=== PATIENT | female | born 1940 | race Caucasian/White ===

== ENCOUNTER 2016-07-10 19:38 | Inpatient (IN) | payer MEDICARE ==
[2016-07-10] MEDS ORDERED: IPRATROPIUM-ALBUTEROL 3 ML NEB INHALATION STA (20:09)
--- NOTE | 2016-07-10 20:13 | ED ---
SOB HPI - General Chief Complaint: Shortness of Breath Stated Complaint: BOB Legs swelling Time Seen by Provider: 07/10/16 20:00 Source: patient, RN notes reviewed Mode of arrival: wheelchair Limitations: no limitations - History of Present Illness Initial Comments: This is a 76-year-old female with history of CHF and COPD who states he started developing shortness of breath last evening has had chills but she relates this to old age. She denies any phlegm production she does complain of edema to her lower extremities and extends up to the knees. She has no overt chest pain or other symptoms at this time. Patient does admit that she still smokes 1 cigarette per day I did recommended 0 is a better number. MD Complaint: shortness of breath, cough - Related Data Home Medications Medication Instructions Recorded Confirmed Aspirin 81 mg PO DAILY 09/11/14 07/10/16 L.acidoph,Paracasei, B.lactis 1 cap PO DAILY 07/10/16 07/10/16 [Probiotic] Multivitamins, Thera [Multivitamin 1 tab PO DAILY 07/10/16 07/10/16 (formulary)] Sodium Chloride [[place]] 1 spray EA NOSTRIL DAILY 07/10/16 07/10/16 Allergies Allergy/AdvReac Type Severity Reaction Status Date / Time codeine Allergy PARALYZED Verified 07/10/16 20:05 Review of Systems ROS Statement: Those systems with pertinent positive or pertinent negative responses have been documented in the HPI. ROS Other: All systems not noted in ROS Statement are negative. Past Medical History Past Medical History: Cancer, Heart Failure, Hypertension, Pneumonia History of Any Multi-Drug Resistant Organisms: None Reported Past Surgical History: Appendectomy Additional Past Surgical History / Comment(s): right kidney removal, thyroidectomy Past Psychological History: No Psychological Hx Reported Smoking Status: Current every day smoker Past Alcohol Use History: None Reported Past Drug Use History: None Reported General Exam - General Exam Comments Initial Comments: This is a well-developed well-nourished awake alert oriented 3 female Limitations: no limitations General appearance: alert, in no apparent distress Head exam: Present: atraumatic, normocephalic, normal inspection Eye exam: Present: normal appearance, PERRL, EOMI. Absent: scleral icterus, conjunctival injection, periorbital swelling ENT exam: Present: normal exam, mucous membranes moist Neck exam: Present: normal inspection. Absent: tenderness, meningismus, lymphadenopathy Respiratory exam: Present: wheezes, rales, decreased breath sounds (Basilar rales). Absent: respiratory distress, rhonchi, stridor Cardiovascular Exam: Present: regular rate, normal rhythm, normal heart sounds. Absent: systolic murmur, diastolic murmur, rubs, gallop, clicks GI/Abdominal exam: Present: soft, normal bowel sounds. Absent: distended, tenderness, guarding, rebound, rigid Extremities exam: Present: normal inspection, full ROM, normal capillary refill , pedal edema. Absent: tenderness, joint swelling, calf tenderness Back exam: Present: normal inspection Neurological exam: Present: alert, oriented X3, CN II-XII intact Psychiatric exam: Present: normal affect, normal mood Skin exam: Present: warm, dry, intact, normal color. Absent: rash Course Vital Signs 07/10/16 07/10/16 07/10/16 19:51 20:25 20:34 Temperature 98.2 F Pulse Rate 91 84 88 Respiratory 18 Rate Blood Pressure 139/89 O2 Sat by Pulse 96 Oximetry - Reevaluation(s) Reevaluation #1: 07/10/16 21:53 Evaluation reveals the patient is feeling somewhat better breathing better after the DuoNeb treatment. Medical Decision Making - Medical Decision Making I did discuss findings with the patient and with Dr. Lee patient will be admitted with evaluation for congestive heart failure COPD there is a elevation of troponin this may be likely to the renal insufficiency demonstrated patient' s labs cardiology will be consulted - Lab Data Result diagrams: 07/10/16 20:42 07/10/16 20:42 Lab Results 07/10/16 07/10/16 07/10/16 Range/Units 20:42 20:42 20:42 WBC 12.5 H (3.8-10.6) k/uL RBC 4.17 (3.80-5.40) m/uL Hgb 10.0 L (11.4-16.0) gm/dL Hct 36.0 (34.0-46.0) % MCV 86.2 (80.0-100.0) fL MCH 24.1 L (25.0-35.0) pg MCHC 27.9 L (31.0-37.0) g/dL RDW 16.3 H (11.5-15.5) % Plt Count 307 (150-450) k/uL Neutrophils % 73 % Lymphocytes % 15 % Monocytes % 8 % Eosinophils % 1 % Basophils % 1 % Neutrophils # 9.2 H (1.3-7.7) k/uL Lymphocytes # 1.8 (1.0-4.8) k/uL Monocytes # 1.0 (0-1.0) k/uL Eosinophils # 0.2 (0-0.7) k/uL Basophils # 0.1 (0-0.2) k/uL Hypochromasia Marked Poikilocytosis Moderate Anisocytosis Slight PT (9.0-12.0) sec INR (<1.1) APTT (22.0-30.0) sec Sodium 143 (137-145) mmol/L Potassium 5.4 H (3.5-5.1) mmol/L Chloride 109 H (98-107) mmol/L Carbon Dioxide 21 L (22-30) mmol/L Anion Gap 13 mmol/L BUN 31 H (7-17) mg/dL Creatinine 1.10 H (0.52-1.04) mg/dL Est GFR (MDRD) Af Amer 59 (>60 ml/min/1.73 sqM) Est GFR (MDRD) Non-Af 48 (>60 ml/min/1.73 sqM) Glucose 88 (74-99) mg/dL Calcium 8.6 (8.4-10.2) mg/dL Magnesium 2.2 (1.6-2.3) mg/dL Total Bilirubin 0.8 (0.2-1.3) mg/dL AST 63 H (14-36) U/L ALT 65 H (9-52) U/L Alkaline Phosphatase 119 (38-126) U/L Total Creatine Kinase 127 (30-135) U/L CK-MB (CK-2) 3.3 H* (0.0-2.4) ng/mL CK-MB (CK-2) Rel Index 2.6 Troponin I 0.075 H* (0.000-0.034) ng/mL Total Protein 6.9 (6.3-8.2) g/dL Albumin 3.5 (3.5-5.0) g/dL 07/10/16 Range/Units 20:42 WBC (3.8-10.6) k/uL RBC (3.80-5.40) m/uL Hgb (11.4-16.0) gm/dL Hct (34.0-46.0) % MCV (80.0-100.0) fL MCH (25.0-35.0) pg MCHC (31.0-37.0) g/dL RDW (11.5-15.5) % Plt Count (150-450) k/uL Neutrophils % % Lymphocytes % % Monocytes % % Eosinophils % % Basophils % % Neutrophils # (1.3-7.7) k/uL Lymphocytes # (1.0-4.8) k/uL Monocytes # (0-1.0) k/uL Eosinophils # (0-0.7) k/uL Basophils # (0-0.2) k/uL Hypochromasia Poikilocytosis Anisocytosis PT 11.9 (9.0-12.0) sec INR 1.2 (<1.1) APTT 21.9 L (22.0-30.0) sec Sodium (137-145) mmol/L Potassium (3.5-5.1) mmol/L Chloride (98-107) mmol/L Carbon Dioxide (22-30) mmol/L Anion Gap mmol/L BUN (7-17) mg/dL Creatinine (0.52-1.04) mg/dL Est GFR (MDRD) Af Amer (>60 ml/min/1.73 sqM) Est GFR (MDRD) Non-Af (>60 ml/min/1.73 sqM) Glucose (74-99) mg/dL Calcium (8.4-10.2) mg/dL Magnesium (1.6-2.3) mg/dL Total Bilirubin (0.2-1.3) mg/dL AST (14-36) U/L ALT (9-52) U/L Alkaline Phosphatase (38-126) U/L Total Creatine Kinase (30-135) U/L CK-MB (CK-2) (0.0-2.4) ng/mL CK-MB (CK-2) Rel Index Troponin I (0.000-0.034) ng/mL Total Protein (6.3-8.2) g/dL Albumin (3.5-5.0) g/dL - EKG Data -: EKG Interpreted by Ca EKG shows normal: sinus rhythm (Sinus rhythm a rate of 87 IL interval 150 to QRS duration 82 QT/QTC of 32/459 with possible atrial enlargement and rightward axis.) - Radiology Data Radiology results: report reviewed (Review the x-ray does reveal evidence of CHF /pulmonary edema.), image reviewed Critical Care Time Critical Care Time: Yes Critical Care Time: 33 minutes. Critical care time which includes initial monitoring of the patient with history physical lab and x-rays. Reevaluation the patient response to therapy. Discussed with the patient regarding the findings discussed with the admitting physician. Admission orders and documentation of the above. Disposition Clinical Impression: Congestive heart failure, Pulmonary edema, Acute exacerbation of chronic obstructive airways disease, Adult respiratory distress syndrome, Renal insufficiency syndrome, Elevated troponin Disposition: ADMITTED IP TO THIS [facility] Condition: Stable
--- NOTE | 2016-07-10 20:29 | XR ---
EXAMINATION TYPE: XR chest 2V DATE OF EXAM: 07/10/2016 8:23 PM COMPARISON: 09/11/2014 HISTORY: Short of breath TECHNIQUE: Frontal and lateral views of the chest are obtained. FINDINGS: There is pulmonary edema. Heart is enlarged. Thoracic aorta is atheromatous. There is blun ting of costophrenic angles. IMPRESSION: There is congestive heart failure with pulmonary edema and pleural fluid that is new com pared to last exam.
[2016-07-10 21:08] LABS: Anisocytosis Slight; Basophils # (A) 0.1 k/uL (0-0.2); Basophils % (A) 1 %; CHCM 27.9; Eosinophils # (A) 0.2 k/uL (0-0.7); Eosinophils % (A) 1 %; HDW 4.11; Hypochromasia Marked; Luc % (Auto) 2; Lymphocytes # (A) 1.8 k/uL (1.0-4.8); Lymphocytes % (A) 15 %; MCH 24.1 pg (25.0-35.0); MCV 86.2 fL (80.0-100.0); Mean Platelet Volume 6.8; Monocytes % (A) 8 %; Neutrophils # (A) 9.2 k/uL (1.3-7.7); Neutrophils % (A) 73 %; Poikilocytosis Moderate; RBC 4.17 m/uL (3.80-5.40); RDW 16.3 % (11.5-15.5); WBC 12.5 k/uL (3.8-10.6); WBC (Perox) 12.74
[2016-07-10 21:10] LABS: MCHC 27.9 g/dL (31.0-37.0)
[2016-07-10 21:11] LABS: Calcium 8.6 mg/dL (8.4-10.2); Magnesium 2.2 mg/dL (1.6-2.3); Potassium 5.4 mmol/L (3.5-5.1); Total Bilirubin 0.8 mg/dL (0.2-1.3); Total Protein 6.9 g/dL (6.3-8.2)
[2016-07-10 21:14] LABS: INR 1.2 (<1.1); Prothrombin Time 11.9 sec (9.0-12.0)
[2016-07-10 21:15] LABS: Partial Thromboplastin Time 21.9 sec (22.0-30.0)
[2016-07-10 21:46] LABS: Creatine Kinase MB 3.3 ng/mL (0.0-2.4); Troponin I 0.075 ng/mL (0.000-0.034)
[2016-07-10] MEDS ORDERED: FUROSEMIDE 10 MG/ML 4 ML VIAL IV STA (21:51)
[2016-07-10] MEDS ORDERED: NITROGLYCERIN OINT 1 INCH/GM PACKET TOPICAL STA (21:52)
[2016-07-10] MEDS ORDERED: HEPARIN SODIUM,PORCINE 5,000 UNIT/ML 1 ML VIAL IV ONE (21:59)
[2016-07-10] MEDS ORDERED: HEPARIN SODIUM,PORCINE/D5W PMX 25,000 UNIT in DEXTROSE/WATER 1 500ML.BAG IV SCH (22:00)
[2016-07-10] MEDS ORDERED: IPRATROPIUM-ALBUTEROL 3 ML NEB INHALATION PRN (22:13)
[2016-07-10] MEDS: NITROGLYCERIN OINT 1 INCH/GM PACKET TOPICAL SCH (23:35)
[2016-07-10] MEDS: SODIUM CHLORIDE 0.9% 1,000 ML IV SCH (23:47)
[2016-07-11] MEDS ORDERED: IPRATROPIUM-ALBUTEROL 3 ML NEB INHALATION SCH
[2016-07-11] MEDS: HEPARIN SODIUM,PORCINE/D5W PMX 25,000 UNIT in DEXTROSE/WATER 1 500ML.BAG IV SCH (01:47)
[2016-07-11 05:03] LABS: Calcium 8.3 mg/dL (8.4-10.2); Potassium 4.5 mmol/L (3.5-5.1)
[2016-07-11] MEDS: HEPARIN SODIUM,PORCINE 5,000 UNIT/ML 1 ML VIAL IV PRN ×2 (07:08→15:38)
[2016-07-11] MEDS ORDERED: ONDANSETRON 4 MG/2 ML VIAL IVP PRN (07:15)
[2016-07-11] MEDS: IPRATROPIUM-ALBUTEROL 3 ML NEB INHALATION SCH ×4 (08:35→20:07)
[2016-07-11] MEDS: NITROGLYCERIN OINT 1 INCH/GM PACKET TOPICAL SCH (08:43)
[2016-07-11] MEDS: FUROSEMIDE 10 MG/ML 4 ML VIAL IV SCH ×3 (08:43→23:23)
[2016-07-11] MEDS ORDERED: FUROSEMIDE 40 MG TAB PO SCH (09:00)
--- NOTE | 2016-07-11 09:28 | P.CRDCN ---
History of Present Illness Consult date: 07/11/16 Requesting physician: Padilla Lee Consult reason: congestive heart failure Chief complaint: Shortness of breath History of present illness: This is a 76-year-old female who follows regularly with Dr. VC Fuller in the office, she has history of hypertension, hyperlipidemia, prior myocardial infarction, COPD, nicotine dependence, prior congestive heart failure , renal failure, patient only has one kidney, she follows with Dr. Mcintosh, who presents to the hospital with symptoms of progressively worsening shortness of breath. According to the patient she states that she's noticed shortness of breath for approximately one month, however in the past week it has been progressively worse. She's also noticed a significant amount of leg swelling bilaterally. Positive PND and orthopnea. For this reason patient came to the emergency room for further evaluation. EKG on arrival showed a normal sinus rhythm with inferior ST-T wave changes. Chest x-ray revealed congestive heart failure with pulmonary edema. Laboratory data, WBC 12.5, hemoglobin 10.0, platelet count 307. Potassium on admission 5.4, 4.5 this morning. BUN 33, creatinine 1.2. AST 63, ALT 65. Troponins 0.075, .087. BNP level 35,200. Blood pressure on arrival 140/80 with a heart rate in the 90s. Patient was initiated on IV Lasix in the emergency room. She does state that her breathing is somewhat improved this morning. Past Medical History Past Medical History: Cancer, Heart Failure, Hypertension, Pneumonia History of Any Multi-Drug Resistant Organisms: None Reported Past Surgical History: Appendectomy, Bowel Resection, Cholecystectomy Additional Past Surgical History / Comment(s): right kidney removal, thyroidectomy Past Anesthesia/Blood Transfusion Reactions: No Reported Reaction Past Psychological History: No Psychological Hx Reported Smoking Status: Current every day smoker Past Alcohol Use History: None Reported Past Drug Use History: None Reported Additional Drug Use History / Comment(s): 1 cigarette a day - Past Family History Father Family Medical History: COPD, Coronary Artery Disease (CAD) Additional Family Medical History / Comment(s): 1 lung removed Mother Family Medical History: Coronary Artery Disease (CAD) Medications and Allergies Home Medications Medication Instructions Recorded Confirmed Type Aspirin 81 mg PO DAILY 09/11/14 07/10/16 History Multivitamins, Thera [Multivitamin 1 tab PO DAILY 07/10/16 07/10/16 History (formulary)] Sodium Chloride [[place]] 1 spray EA NOSTRIL DAILY 07/10/16 07/10/16 History Allergies Allergy/AdvReac Type Severity Reaction Status Date / Time codeine Allergy PARALYZED Verified 07/10/16 20:05 Physical Exam Vitals: Vital Signs Temp Pulse Pulse Resp BP BP Pulse Ox 07/11/16 08:49 92 07/11/16 08:35 90 07/11/16 08:00 97.8 F 82 18 135/65 98 07/11/16 04:00 98.2 F 78 18 127/85 97 07/11/16 00:00 97 F L 91 18 158/74 98 07/10/16 22:03 96 24 152/94 96 Intake and Output 07/10/16 07/11/16 07/11/16 22:59 06:59 14:59 Intake Total 240 62.238 Balance 240 62.238 Intake: IV 240 Heparin Sodium,Porcine/ 120 D5w Pmx 25,000 unit In Dextrose/Water 1 500ml. bag @ 12 UNITS/KG/HR 10. 34 mls/hr IV .Q24H MARY Rx #:[id number] Sodium Chloride 0.9% 1, 120 000 ml @ 20 mls/hr IV . Q24H MARY Rx#:[id number] Intake, IV Titration 62.238 Amount Heparin Sodium,Porcine/ 62.238 D5w Pmx 25,000 unit In Dextrose/Water 1 500ml. bag @ 12 UNITS/KG/HR 11. 78 mls/hr IV .Q24H MARY Rx #:[id number] Other: Voiding Method Toilet Toilet # Voids 2 2 Weight 49.124 kg 49.1 kg PHYSICAL EXAMINATION: HEENT: Head is atraumatic, normocephalic. Pupils equal, round. Neck is supple. There is elevated jugular venous pressure. HEART EXAMINATION: Heart S1, S2 normal. No murmur or gallop heard. CHEST EXAMINATION: Lungs are clear with diminished air entry to bilateral bases. Fine rales to bilateral bases. ABDOMEN: Soft, nontender. Bowel sounds are heard. No organomegaly noted. EXTREMITIES: 2+ peripheral pulses with 1+ evidence of peripheral edema and no calf tenderness noted. NEUROLOGIC patient is awake, alert and oriented -3. . Results 07/10/16 20:42 07/11/16 04:24 Cardiac Enzymes 07/11/16 Range/Units 04:24 Troponin I 0.087 H* (0.000-0.034) ng/mL Coagulation 07/11/16 Range/Units 05:45 APTT 32.2 H (22.0-30.0) sec Comprehensive Metabolic Panel 07/11/16 Range/Units 04:24 Sodium 142 (137-145) mmol/L Potassium 4.5 (3.5-5.1) mmol/L Chloride 105 (98-107) mmol/L Carbon Dioxide 25 (22-30) mmol/L BUN 33 H (7-17) mg/dL Creatinine 1.20 H (0.52-1.04) mg/dL Glucose 116 H (74-99) mg/dL Calcium 8.3 L (8.4-10.2) mg/dL Current Medications Generic Name Dose Route Start Last Admin Trade Name Freq PRN Reason Stop Dose Admin Albuterol/Ipratropium 3 ml 07/11/16 08:00 07/11/16 08:35 Duoneb 0.5 Mg-3 Mg/3 Ml Soln INHALATION 3 ml RT-QID MARY Administration Albuterol/Ipratropium 3 ml 07/10/16 22:13 Duoneb 0.5 Mg-3 Mg/3 Ml Soln INHALATION RT-Q2H PRN Shortness Of Breath Or Wheezing Furosemide 40 mg 07/11/16 08:00 07/11/16 08:43 Lasix IV 40 mg Q8HR MARY Administration Heparin Sodium (Porcine) 0 unit 07/11/16 06:57 07/11/16 07:08 Heparin IV 1,375 unit PER PROTOCOL PRN Administration Low PTT Protocol Sodium Chloride 1,000 mls @ 20 mls/hr 07/10/16 22:00 07/10/16 23:47 Saline 0.9% IV 20 mls/hr .Q24H MARY Administration Heparin Sodium/Dextrose 25,000 500 mls @ 11.78 mls/hr 07/11/16 00:15 07:04 unit/ IV Solution IV 15 units/kg/hr .Q24H MARY 14.73 mls/hr Protocol Titration 12 UNITS/KG/HR Nitroglycerin 1 inch 07/10/16 22:00 07/11/16 08:43 Nitro-Bid Oint TOPICAL 1 inch QID MARY Administration Ondansetron HCl 4 mg 07/11/16 07:15 07/11/16 08:43 Zofran IVP 4 mg Q6HR PRN Administration Nausea And Vomiting Intake and Output 07/10/16 07/11/16 07/11/16 22:59 06:59 14:59 Intake Total 240 62.238 Balance 240 62.238 Intake: IV 240 Heparin Sodium,Porcine/ 120 D5w Pmx 25,000 unit In Dextrose/Water 1 500ml. bag @ 12 UNITS/KG/HR 10. 34 mls/hr IV .Q24H MARY Rx #:[id number] Sodium Chloride 0.9% 1, 120 000 ml @ 20 mls/hr IV . Q24H MARY Rx#:[id number] Intake, IV Titration 62.238 Amount Heparin Sodium,Porcine/ 62.238 D5w Pmx 25,000 unit In Dextrose/Water 1 500ml. bag @ 12 UNITS/KG/HR 11. 78 mls/hr IV .Q24H MARY Rx #:[id number] Other: Voiding Method Toilet Toilet # Voids 2 2 Weight 49.124 kg 49.1 kg 07/11/16 04:24 EKG Interpretations (text) EKG shows a normal sinus rhythm with inferior ST-T wave changes. Assessment and Plan Plan: Assessment and plan #1 congestive heart failure, likely systolic in nature, patient has been told in the past to have cardiomyopathy, we will request an echocardiogram with Doppler study. #2 hypertension #3 hyperlipidemia #4 renal failure, patient only has one kidney. #5 COPD #6 nicotine dependence #7 abnormal troponins, not consistent with acute coronary syndrome. Could be secondary to oxygen supply and demand mismatch. #8 abnormal liver functions, likely secondary to liver congestion. Plan We will request an echocardiogram with Doppler study be performed. We will also continue the patient on IV Lasix. According to the patient, all of her medications were discontinued because of renal failure. We will put the patient on a baby aspirin daily, resume the Lipitor, Coreg and losartan. Continue to monitor intake and output along with daily weights. Continue to monitor potassium, if stable resume Aldactone. Further recommendations to follow. DNP note has been reviewed, I agree with a documented findings and plan of care. Patient was seen and examined.
[2016-07-11] MEDS: ASPIRIN 81 MG CHEW PO SCH (11:26)
[2016-07-11] MEDS: LOSARTAN 25 MG TAB PO SCH (11:26)
[2016-07-11] MEDS: CARVEDILOL 3.125 MG TAB PO SCH ×2 (11:26→17:01)
--- NOTE | 2016-07-11 12:00 | ECHOF ---
Referral Reason:chf MEASUREMENTS -------- HEIGHT: 152.4 cm WEIGHT: 49.0 kg BP: 135/65 RVIDd: 3.3 cm (< 3.3) IVSd: 1.3 cm (0.6 - 1.1) LVIDd: 5.1 cm (3.9 - 5.3) LVPWd: 0.9 cm (0.6 - 1.1) IVSs: 1.5 cm LVIDs: 4.7 cm LVPWs: 1.0 cm LA Diam: 3.4 cm (2.7 - 3.8) LAESV Index (A-L): 47.40 ml/m Ao Diam: 3.2 cm (2.0 - 3.7) AV Cusp: 1.6 cm (1.5 - 2.6) LA Diam: 3.0 cm (2.7 - 3.8) MV EXCURSION: 7.983 mm (> 18.000) MV EF SLOPE: 41 mm/s (70 - 150) EPSS: 0.8 cm MV E Jun: 1.25 m/s MV DecT: 126 ms MV A Jun: 1.19 m/s MV E/A Ratio: 1.05 AV maxP.89 mmHg AV meanP.35 mmHg RAP: 5.00 mmHg RVSP: 49.17 mmHg FINDINGS -------- Sinus rhythm. This was a technically good study. There is mild concentric left ventricular hypertrophy. Overall left ventricular systolic function is severely impaired with, an EF between 20 - 25 %. The right ventricle is mildly enlarged. LA is severely dilated >40 ml/m2 The right atrial size is normal. Aortic valve is trileaflet and is mildly thickened. Peak/mean gradient across the Aortic Valve is 12.89mmHg / 7.35mmHg. The mitral valve leaflets are moderately thickened. Moderate mitral annular calcification present. [id number] mitral regurgitation is present. The peak and mean MV gradients are 6.52mmHg 2.80mmHg as measured by doppler. Moderate to severe tricuspid regurgitation present. There is moderate pulmonary hypertension. The right ventricular systolic pressure, as measured by Doppler, is 49.17mmHg. Trace/mild (physiologic) pulmonic regurgitation. The aortic root size is normal. Normal inferior vena cava with normal inspiratory collapse consistent with estimated right atrial pressure of 5 mmHg. There is no pericardial effusion. CONCLUSIONS -------- 1. Sinus rhythm. 2. The mitral valve leaflets are moderately thickened. 3. Moderate mitral annular calcification present. 4. [id number] mitral regurgitation is present. 5. The peak and mean MV gradients are 6.52mmHg 2.80mmHg as measured by doppler. 6. Moderate to severe tricuspid regurgitation present. 7. There is moderate pulmonary hypertension. 8. The right ventricular systolic pressure, as measured by Doppler, is 49.17mmHg. 9. Trace/mild (physiologic) pulmonic regurgitation. 10. The aortic root size is normal. 11. Normal inferior vena cava with normal inspiratory collapse consistent with estimated right atrial pressure of 5 mmHg. 12. This was a technically good study. 13. There is no pericardial effusion. 14. There is mild concentric left ventricular hypertrophy. 15. Overall left ventricular systolic function is severely impaired with, an EF between 20 - 25 %. 16. The right ventricle is mildly enlarged. 17. LA is severely dilated >40 ml/m2 18. The right atrial size is normal. 19. Aortic valve is trileaflet and is mildly thickened. 20. Peak/mean gradient across the Aortic Valve is 12.89mmHg / 7.35mmHg. CUSTOMER RETENTION SPECIALIST: Scotty Izaguirre RDCS
--- NOTE | 2016-07-11 13:25 | HP ---
DATE OF ADMISSION: 07/10/2016 PRESENTING COMPLAINT: Short of breath. HISTORY OF PRESENTING COMPLAINT: A very pleasant 76-year-old patient of Dr. Fontanez. Chronic stable conditions include hypertension, osteoarthritis, urinary incontinence, has a history of right nephrectomy for renal cell cancer. Has been getting short of breath for quite some time, but more so in the last 2 weeks. Getting more and more leg edema, short of breath, cough. Normally uses 2 pillows at night. Appetite is okay. Patient also complains of restless legs at night and they become painful. Patient does smoke a few cigarettes here and there. Admitted for the same. The patient is also congested. REVIEW OF SYSTEMS: CONSTITUTIONAL: Tired. HEENT: Decreased hearing. RESPIRATORY: As above. CARDIOVASCULAR: As above. Edema did go down with Lasix. GASTROINTESTINAL: None. GENITOURINARY: Urinary incontinence. DERMATOLOGICAL: None. HEMATOLOGICAL: None. LYMPHATICS: None. PSYCHIATRY: None. NEUROLOGICAL: Restless legs especially at night. PAST MEDICAL HISTORY: Thyroid cancer with thyroidectomy, CHF, hypertension, arthritis. PAST SURGICAL HISTORY: Appendectomy, bowel resection, cholecystectomy, right nephrectomy, thyroidectomy. SOCIAL HISTORY: The patient smokes a few cigarettes here and there for a long time. No alcohol. Lives with her brother. Family history of coronary artery disease, COPD. HOME MEDICATIONS: 1. Aspirin 81 mg a day. 2. Gratiot [place]. 3. Multivitamin 1 tablet p.o. daily. Allergies to CODEINE. ON EXAMINATION: VITAL SIGNS ON PRESENTATION: Temperature 98.2, pulse 91, respiration 18, blood pressure 139/89, pulse ox 96% on room air. GENERAL APPEARANCE: Thin build, sitting up, tired appearing. EYES: Pupils equal. Conjunctivae normal. HENT: Oral cavity normal. NECK: JVD raised. Mass not palpable. RESPIRATORY: Effort increased. LUNGS: Diminished breath sounds and wheezing. Some basal crackles. CARDIOVASCULAR: Heart sounds regular. Edema, present. ABDOMEN: Soft, nontender. Liver and spleen not palpable. LYMPHATIC: No lymph node palpable in neck or axillae. PSYCHIATRY: Alert and oriented x3. Mood and affect normal. NEUROLOGICAL: Pupils equal. Cranial nerves grossly intact. MUSCULOSKELETAL: Evidence of osteoarthritis especially hands and knees. INVESTIGATIONS: White count 12.5, hemoglobin 10, platelets normal. Potassium 5.4. repeat 4.5. BUN 31, creatinine 1.10. Troponin 0.075. ProBNP 35,200. Chest x-ray reviewed shows cardiomegaly, aortic calcification, venous cephalization and also appears to have some chronic changes. ASSESSMENT: 1. Acute on chronic congestive heart failure exacerbation from systolic dysfunction; probably from underlying hypertensive heart disease, ejection fraction 20% to 25%. 2. Moderate to severe mitral regurgitation, nonrheumatic. 3. Moderate to severe tricuspid regurgitation, nonrheumatic. 4. Secondary pulmonary hypertension secondary to chronic obstructive pulmonary disease. 5. Acute chronic obstructive pulmonary disease exacerbation in a chronic smoker. 6. Right nephrectomy, history of from prior cancer. 7. Primary osteoarthritis in multiple joints, bilaterally. 8. Chronic urinary stress incontinence. 9. Restless leg syndrome, new diagnosis. 10. Chronic nicotine dependence. Patient is a smoker. PLAN: Patient is put on IV heparin in the ER, started the patient on IV Lasix. The patient was also put on beta berenice, Lipitor, aspirin and Cozaar. Will add a small dose of Aldactone starting tomorrow. We will keep a close eye on renal function. Patient also is put on nebulized bronchodilator. Will put the patient on Requip at night for the restless leg syndrome and patient also put on nicotine patch. Overall prognosis is guarded. Care was discussed with the patient and family members at bedside. Cardiology was consulted.
[2016-07-11] MEDS: SODIUM CHLORIDE 0.9% 1,000 ML IV SCH (20:05)
[2016-07-12] MEDS: HEPARIN SODIUM,PORCINE/D5W PMX 25,000 UNIT in DEXTROSE/WATER 1 500ML.BAG IV SCH (00:34)
[2016-07-12 07:03] LABS: Calcium 8.1 mg/dL (8.4-10.2); Potassium 4.2 mmol/L (3.5-5.1)
[2016-07-12] MEDS: CARVEDILOL 3.125 MG TAB PO SCH ×2 (07:04→17:07)
[2016-07-12] MEDS: IPRATROPIUM-ALBUTEROL 3 ML NEB INHALATION SCH ×4 (07:59→20:56)
[2016-07-12] MEDS: FUROSEMIDE 10 MG/ML 4 ML VIAL IV SCH ×3 (08:14→23:42)
[2016-07-12] MEDS: LOSARTAN 25 MG TAB PO SCH (08:26)
[2016-07-12] MEDS: SPIRONOLACTONE 25 MG TAB PO SCH (08:26)
[2016-07-12] MEDS: ATORVASTATIN 40 MG TAB PO SCH (08:26)
[2016-07-12] MEDS: ASPIRIN 81 MG CHEW PO SCH (08:26)
--- NOTE | 2016-07-12 09:53 | CDI ---
In responding to this query, please exercise your independent professional judgment. The [facility] Coding Staff and Clinical Documentation Specialists appreciate your assistance in clarifying documentation, maintaining compliance with coding guidelines, accurately documenting patients condition and capturing severity of illness. The fact that a question is asked does not imply that any particular answer is desired or expected. Communication forms are a method of clarifying documentation and are not made part of the Legal Health Record. Thank you in advance for your clarification. Last Revision, January 2015 Olivier Storey [address] [place] [address] Documentation Clarification Form Date: 07/12/2016 9:37:00 AM From: Karen Martinez RN, CCDS Admit Date: 07/10/2016 9:56:00 PM Patient Name: Sruthi Graff Visit Number: [id number] Dr. Paidlla Lee History/Risk Factors: Hx of right nephrectomy, CHF, HTN, Pneumonia Clinical Indicators: EC Note: "renal Insuffiency" Patients baseline on 09/23/15 BUN:19 CR:1.1 GFR: 48 Patient presents with a BUN:31/33 CR: 1.1/1.2 GFR : 48/44 Treatment: Consults: Cardiology IVF @ 20 cc/hr Lasix 40 mg IVP Q 8 hrs In order to capture the severity of condition, please clarify if the condition signifies: Acute renal failure Please specify (if known): Cortical, Medullary, or Tubular Necrosis? Acute kidney injury Acute on chronic renal failure Chronic renal failure, please stage Chronic kidney disease (CKD) and please stage Stage 1 GFR >90 Stage 2 GFR 60-89 Stage 3 GFR 30-59 Stage 4 GFR 15-29 Stage 5 GFR <15 ESRD Unable to determine Other, specify Please document in your progress notes and discharge summary in order to capture severity of illness and risk of mortality. Include clinical findings that support your diagnosis. FYI: Press F11 to launch patient chart. Place X here if this finding has no clinical significance, is not applicable or if you are not able to provide any additional documentation. CATRINA
--- NOTE | 2016-07-12 15:34 | P.PN ---
Subjective Principal diagnosis: CHF This is a 76-year-old female who follows regularly with Dr. VC Fuller in the office, she has history of hypertension, hyperlipidemia, prior myocardial infarction, COPD, nicotine dependence, prior congestive heart failure , renal failure, patient only has one kidney, she follows with Dr. Mcintosh, who presents to the hospital with symptoms of progressively worsening shortness of breath. Found to be in congestive cardiac failure, diuresed well through the night last night. Weight is down 3 kg today, creatinine 1.4. Echocardiogram with Doppler study was performed which revealed an ejection fraction of 20-25% with moderate to severe mitral regurgitation. Objective - Vital Signs Vital signs: Vital Signs Temp 97.2 F L 07/12/16 14:54 Pulse 70 07/12/16 14:54 Resp 18 07/12/16 14:54 BP 137/68 07/12/16 14:54 Pulse Ox 97 07/12/16 14:54 Intake & Output 07/11/16 07/12/16 07/12/16 18:59 06:59 18:59 Intake Total 348.425 398.185 280 Output Total 1650 2550 2200 Balance -1301.575 -2151.815 -1920 Weight 49.1 kg 46.3 kg Intake: IV 160 240 Sodium Chloride 0.9% 1, 160 240 000 ml @ 20 mls/hr IV . Q24H MARY Rx#:[id number] Intake, IV Titration 188.425 158.185 Amount Heparin Sodium,Porcine/ 188.425 158.185 D5w Pmx 25,000 unit In Dextrose/Water 1 500ml. bag @ 12 UNITS/KG/HR 11. 78 mls/hr IV .Q24H MARY Rx #:[id number] Oral 280 Output: Urine 1650 2550 2200 Other: Voiding Method Toilet Toilet Toilet Bedpan # Voids 2 2 2 - Exam PHYSICAL EXAMINATION: HEENT: Head is atraumatic, normocephalic. Pupils equal, round. Neck is supple. There is elevated jugular venous pressure. HEART EXAMINATION: Heart S1, S2 normal. No murmur or gallop heard. CHEST EXAMINATION: Lungs are clear with diminished air entry to bilateral bases. Fine rales to bilateral bases. ABDOMEN: Soft, nontender. Bowel sounds are heard. No organomegaly noted. EXTREMITIES: 2+ peripheral pulses with 1+ evidence of peripheral edema and no calf tenderness noted. NEUROLOGIC patient is awake, alert and oriented -3. - Labs CBC & Chem 7: 07/10/16 20:42 07/12/16 06:23 Labs: Abnormal Lab Results - Last 24 Hours (Table) 07/11/16 07/12/16 07/12/16 Range/Units 23:22 06:23 06:23 APTT 46.1 H 47.5 H (22.0-30.0) sec Carbon Dioxide 31 H (22-30) mmol/L BUN 35 H (7-17) mg/dL Creatinine 1.40 H (0.52-1.04) mg/dL Calcium 8.1 L (8.4-10.2) mg/dL Assessment and Plan Plan: Assessment and plan #1 congestive heart failure, systolic in nature, acute on chronic #2 hypertension #3 hyperlipidemia #4 renal failure, patient only has one kidney. #5 COPD #6 nicotine dependence #7 abnormal troponins, not consistent with acute coronary syndrome. Could be secondary to oxygen supply and demand mismatch. #8 abnormal liver functions, likely secondary to liver congestion. Plan From cardiology's perspective, we'll recommend to continue current dose of IV Lasix. We'll also continue Lipitor, Coreg, aspirin, losartan, and Aldactone. DNP note has been reviewed, I agree with a documented findings and plan of care. Patient was seen and examined.
--- NOTE | 2016-07-12 17:25 | P.NPCON ---
History of Present Illness - Reason for Consult acute renal failure - History of Present Illness Reason for consultation: Acute kidney injury on chronic kidney disease History of present illness: Patient is a 76-year-old female seen in renal consultation for acute kidney injury on chronic kidney disease. Patient has chronic any disease stage III secondary to solitary left kidney as well as cardiorenal syndrome. Her baseline creatinine is in the range of 1.1-1.3. He was elevated at 1.4 today. Patient presented to the hospital with dyspnea and lower extremity edema. She is noted to have an ejection fraction of 20-25% with moderate to severe mitral regurgitation as well as moderate pulmonary hypertension. Her urinalysis from August 2015 is noted to be completely benign. She is currently maintained on Lasix 40 mg IV 3 times daily along with Aldactone. She's been diuresing well and edema is significantly improved. Her weight is also trending down. She admits to good urine output without any hematuria or dysuria. Denies use of NSAIDs at home. Denies any family history of renal disease. She underwent right nephrectomy in 1971 due to renal cell carcinoma. Currently having dinner. Denies chest pain. Dyspnea is improved. Vital signs are stable. General: The patient appeared well nourished and normally developed. HEENT: Head exam is unremarkable. Neck is without jugular venous distension. LUNGS: Lungs are clear to auscultation and percussion. Breath sounds decreased. HEART: Rate and Rhythm are regular. First and second heart sounds normal. No murmurs, rubs or gallops. ABDOMEN: Abdominal exam reveals normal bowel sounds. Non-tender and non- distended. No evidence of peritonitis. EXTREMITITES: No clubbing, cyanosis, or edema. Past Medical History Past Medical History: Cancer, Heart Failure, Hypertension, Pneumonia History of Any Multi-Drug Resistant Organisms: None Reported Past Surgical History: Appendectomy, Bowel Resection, Cholecystectomy Additional Past Surgical History / Comment(s): right kidney removal, thyroidectomy Past Anesthesia/Blood Transfusion Reactions: No Reported Reaction Past Psychological History: No Psychological Hx Reported Smoking Status: Current every day smoker Past Alcohol Use History: None Reported Past Drug Use History: None Reported Additional Drug Use History / Comment(s): 1 cigarette a day - Past Family History Father Family Medical History: COPD, Coronary Artery Disease (CAD) Additional Family Medical History / Comment(s): 1 lung removed Mother Family Medical History: Coronary Artery Disease (CAD) Medications and Allergies Home Medications Medication Instructions Recorded Confirmed Type Aspirin 81 mg PO DAILY 09/11/14 07/10/16 History Multivitamins, Thera [Multivitamin 1 tab PO DAILY 07/10/16 07/10/16 History (formulary)] Sodium Chloride [[place]] 1 spray EA NOSTRIL DAILY 07/10/16 07/10/16 History Allergies Allergy/AdvReac Type Severity Reaction Status Date / Time codeine Allergy PARALYZED Verified 07/10/16 20:05 Physical Exam Vitals: Vital Signs Temp Pulse Pulse Resp BP Pulse Ox 07/12/16 14:54 97.2 F L 70 18 137/68 97 07/12/16 12:19 18 81 L 07/12/16 11:56 80 07/12/16 11:44 80 07/12/16 11:40 97.0 F L 66 16 130/71 98 07/12/16 08:45 73 18 07/12/16 08:14 80 07/12/16 07:55 76 07/12/16 07:50 97.2 F L 73 18 121/71 97 07/12/16 00:00 97.9 F 70 18 126/74 92 L 07/11/16 20:00 97.9 F 65 16 121/68 92 L Intake and Output 07/12/16 07/12/16 07/12/16 06:59 14:59 22:59 Intake Total 398.185 280 Output Total 1600 2200 Balance -1201.815 -1920 Intake: IV 240 Sodium Chloride 0.9% 1, 240 000 ml @ 20 mls/hr IV . Q24H MARY Rx#:[id number] Intake, IV Titration 158.185 Amount Heparin Sodium,Porcine/ 158.185 D5w Pmx 25,000 unit In Dextrose/Water 1 500ml. bag @ 12 UNITS/KG/HR 11. 78 mls/hr IV .Q24H MARY Rx #:[id number] Oral 280 Output: Urine 1600 2200 Other: Voiding Method Toilet Toilet Bedpan # Voids 2 2 Weight 46.3 kg Results - Lab Results Most recent lab results Calcium 8.1 mg/dL (8.4-10.2) L 07/12/16 06:23 Magnesium 2.2 mg/dL (1.6-2.3) 07/10/16 20:42 07/10/16 20:42 07/12/16 06:23 Assessment and Plan Plan: Assessment: #1. Nonoliguric acute kidney injury secondary to cardiorenal syndrome. Creatinine elevated at 1.4 today related to diuretics. #2. Volume overload. Improving. Weight trending down. #3. Systolic CHF with ejection fraction of 20-25% with moderate to severe mitral regurgitation and moderate pulmonary hypertension. #4. Chronic kidney disease stage III secondary to solitary right kidney. #5. History of right nephrectomy secondary to renal cell carcinoma. Plan: Continue Lasix 40 mg IV 3 times daily for now. Check urinalysis. Check renal ultrasound. Maintain low salt diet. I will also put her on 1.5 liter fluid restriction. Repeat electrolytes in the morning. Avoid nephrotoxic agents and hypotensive episodes. Thank you for the consultation. I will continue to follow the patient with you during her hospital stay.
[2016-07-12 18:27] LABS: Appearance,Urine Clear (Clear); Bilirubin,Urine Negative (Negative); Glucose,Urine (UA) Negative (Negative); Ketones,Urine Negative (Negative); Leukocyte Esterase,Urine Negative (Negative); Nitrite,Urine Negative (Negative); Protein,Urine Trace (Negative); Specific Gravity,Urine 1.006 (1.001-1.035); UA Billing (MACRO vs. MICRO) CHEM; Urobilinogen,Urine <2.0 mg/dL (<2.0)
--- NOTE | 2016-07-12 19:13 | US ---
EXAMINATION TYPE: US kidneys/renal and bladder DATE OF EXAM: 07/12/2016 6:52 PM COMPARISON: CT in PACS CLINICAL HISTORY: santiago. Right nephrectomy x25 years ago due to renal CA. EXAM MEASUREMENTS: Right Kidney: Surgically absent Left Kidney: 10.9 x 5.3 x 6.8 cm Right Kidney: Surgically absent Left Kidney: Multiple small cysts visualized, largest in upper pole measuring 1.5 x 1.6 x 1.5 cm Bladder: wnl Bilateral Jets seen: Left jet visualized Incidental finding: Probable right side pleural effusion IMPRESSION: Right nephrectomy. No sign of left renal obstruction. Small left renal cortical cysts.
[2016-07-12] MEDS: SODIUM CHLORIDE 0.9% 1,000 ML IV SCH (20:45)
[2016-07-13] MEDS: CARVEDILOL 3.125 MG TAB PO SCH ×2 (06:35→15:14)
[2016-07-13 06:42] LABS: Calcium 8.8 mg/dL (8.4-10.2); Magnesium 1.8 mg/dL (1.6-2.3); Potassium 4.4 mmol/L (3.5-5.1)
[2016-07-13] MEDS: IPRATROPIUM-ALBUTEROL 3 ML NEB INHALATION SCH ×4 (07:17→19:58)
[2016-07-13] MEDS: SPIRONOLACTONE 25 MG TAB PO SCH (07:55)
[2016-07-13] MEDS: ASPIRIN 81 MG CHEW PO SCH (07:55)
[2016-07-13] MEDS: ATORVASTATIN 40 MG TAB PO SCH (07:55)
[2016-07-13] MEDS: LOSARTAN 25 MG TAB PO SCH (07:55)
--- NOTE | 2016-07-13 08:42 | PN ---
DATE OF SERVICE: 07/12/2016 PRESENTING COMPLAINT: Short of breath. INTERVAL HISTORY: This is a patient who presented with acute CHF exacerbation, multiple valvular abnormalities, COPD exacerbation, has a history of right nephrectomy. Breathing is somewhat better, did get out of the chair, did tolerate some diet. Family is at the bedside. Review of systems done for constitutional, cardiovascular, GI, pulmonary; relevant findings as above. Current medications are reviewed that include nebulized bronchodilator, IV Lasix, Aldactone. On examination, temperature 97.2, pulse 70, respiration 18, blood pressure 137/68, pulse ox 97% on 2 L. GENERAL APPEARANCE: Sitting up, a bit more awake. EYES: Pupils equal. Conjunctivae normal. NECK: JVD not raised. Mass not palpable. Respiratory effort increased. LUNGS: Decreased breath sounds. Some improved wheezing, basal crackles present. CARDIOVASCULAR: Heart sounds irregular. Decreased edema. ABDOMEN: Soft, nontender. Liver and spleen not palpable. PSYCHIATRY: Alert and oriented x3. Mood and affect normal. INVESTIGATIONS: BUN 35, creatinine 1.40. Ultrasound shows some right-sided pleural effusion. ASSESSMENT: 1. Acute on chronic congestive heart failure exacerbation from systolic dysfunction from underlying hypertensive heart disease, ejection fraction is 20% to 25%, slow to respond. 2. Moderate to severe mitral regurgitation, moderate to severe tricuspid regurgitation, nonrheumatic. 3. Secondary pulmonary hypertension secondary to chronic obstructive pulmonary disease. 4. Acute chronic obstructive pulmonary disease exacerbation in a chronic smoker. 5. Right nephrectomy, history of prior cancer. 6. Primary osteoarthritis of multiple joints, bilaterally. 7. Chronic urinary stress incontinence. 8. Restless leg syndrome, new diagnosis. 9. Chronic nicotine dependence. Patient is a smoker. 10. Chronic kidney disease, likely nephrosclerosis. PLAN: Patient is improving. Continue with IV Lasix today. Repeat lytes in the morning. Overall prognosis is guarded. Will follow.
--- NOTE | 2016-07-13 10:16 | P.PN ---
Subjective Patient is seen in follow-up for acute kidney injury on chronic kidney disease. Patient has chronic kidney disease stage III secondary to solitary left kidney with baseline creatinine in the range of 1.1-1.3. Creatinine today is little better compared to yesterday at 1.31. Her dyspnea is improved. Denies vomiting or diarrhea. Does feel somewhat nauseated this morning. She has been diuresing well. Edema is significantly improved. She does of systolic CHF with ejection fraction of 20-25% with moderate to severe mitral regurgitation as well as moderate pulmonary hypertension. Vital signs are stable. General: The patient appeared well nourished and normally developed. HEENT: Head exam is unremarkable. Neck is without jugular venous distension. LUNGS: Lungs are clear to auscultation and percussion. Breath sounds decreased. HEART: Rate and Rhythm are regular. First and second heart sounds normal. No murmurs, rubs or gallops. ABDOMEN: Abdominal exam reveals normal bowel sounds. Non-tender and non- distended. No evidence of peritonitis. EXTREMITITES: No clubbing, cyanosis, or edema. Objective - Vital Signs Vital signs: Vital Signs Temp 98.1 F 07/13/16 07:17 Pulse 66 07/13/16 08:00 Resp 22 07/13/16 08:00 BP 123/65 07/13/16 07:17 Pulse Ox 93 L 07/13/16 07:18 Intake & Output 07/12/16 07/13/16 07/13/16 18:59 06:59 18:59 Intake Total 460 180 Output Total 2800 2100 Balance -2340 -2099 180 Weight 44 kg Intake: Oral 460 180 Output: Urine 2800 2100 Other: Voiding Method Toilet Toilet Toilet Bedpan Bedpan Bedpan # Voids 2 - Labs CBC & Chem 7: 07/10/16 20:42 07/13/16 06:07 Labs: Abnormal Lab Results - Last 24 Hours (Table) 07/12/16 07/13/16 Range/Units 18:15 06:07 Chloride 95 L (98-107) mmol/L Carbon Dioxide 34 H (22-30) mmol/L BUN 36 H (7-17) mg/dL Creatinine 1.31 H (0.52-1.04) mg/dL Urine Protein Trace H (Negative) Assessment and Plan Plan: Assessment: #1. Nonoliguric acute kidney injury secondary to cardiorenal syndrome. Creatinine level improved to 1.31 today. Urinalysis and renal ultrasound quite benign. #2. Volume overload. Improving. Weight trending down. #3. Systolic CHF with ejection fraction of 20-25% with moderate to severe mitral regurgitation and moderate pulmonary hypertension. #4. Chronic kidney disease stage III secondary to solitary right kidney. #5. History of right nephrectomy secondary to renal cell carcinoma. #6. Metabolic alkalosis related to volume contraction from diuresis. Plan: Decrease Lasix to 40 mg IV twice daily. Maintain low salt diet and 1.5 liter fluid restriction. Repeat electrolytes in the morning. Avoid nephrotoxic agents and hypotensive episodes. Follow-up morning chest x-ray.
[2016-07-13 10:44] VITALS: BMI 18.9
--- NOTE | 2016-07-13 11:00 | XR ---
EXAMINATION TYPE: XR chest 2V DATE OF EXAM: 07/13/2016 6:20 AM COMPARISON: Prior chest x-ray 10 July 2016, chest CT for June 2011 HISTORY: Congestive heart failure, COPD TECHNIQUE: Frontal and lateral views of the chest are obtained. FINDINGS: There is no focal air space opacity, pleural effusion, or pneumothorax seen. The cardiac silhouette size is within normal limits. Interstitium is increased. There is blunting of the costophr enic angles. Heart remains enlarged. There are overlying cardiac leads. The osseous structures are i ntact. IMPRESSION: Correlate for pulmonary venous hypertension and interstitial edema patient with pre-exis ting COPD. Interstitial lung disease is present.
[2016-07-13] MEDS: FUROSEMIDE 10 MG/ML 4 ML VIAL IV SCH ×2 (11:36→22:25)
--- NOTE | 2016-07-13 14:59 | P.PN ---
Subjective Principal diagnosis: CHF This is a 76-year-old female who follows regularly with Dr. VC Fuller in the office, she has history of hypertension, hyperlipidemia, prior myocardial infarction, COPD, nicotine dependence, prior congestive heart failure , renal failure, patient only has one kidney, she follows with Dr. Mcintosh, who presents to the hospital with symptoms of progressively worsening shortness of breath. Found to be in congestive cardiac failure, diuresed well through the night last night. creatinine 1.3. Echocardiogram with Doppler study was performed which revealed an ejection fraction of 20-25% with moderate to severe mitral regurgitation.seen in consultation by nephrology. Currently on Lasix 40 mg IV twice a day. Overall looking much better today. Objective - Vital Signs Vital signs: Vital Signs Temp 98.0 F 07/13/16 11:25 Pulse 60 07/13/16 12:28 Resp 20 07/13/16 12:00 BP 125/68 07/13/16 11:25 Pulse Ox 96 07/13/16 11:25 Intake & Output 07/12/16 07/13/16 07/13/16 18:59 06:59 18:59 Intake Total 460 180 Output Total 2800 2100 Balance -2340 -2099 180 Weight 44 kg 44 kg Intake: Oral 460 180 Output: Urine 2800 2100 Other: Voiding Method Toilet Toilet Toilet Bedpan Bedpan Bedpan # Voids 2 - Exam PHYSICAL EXAMINATION: HEENT: Head is atraumatic, normocephalic. Pupils equal, round. Neck is supple. There is elevated jugular venous pressure. HEART EXAMINATION: Heart S1, S2 normal. No murmur or gallop heard. CHEST EXAMINATION: Lungs are clear with improvement in air entry to bilateral bases. ABDOMEN: Soft, nontender. Bowel sounds are heard. No organomegaly noted. EXTREMITIES: 2+ peripheral pulses with trace evidence of peripheral edema and no calf tenderness noted. NEUROLOGIC patient is awake, alert and oriented -3. - Labs CBC & Chem 7: 07/10/16 20:42 07/13/16 06:07 Labs: Abnormal Lab Results - Last 24 Hours (Table) 07/12/16 07/13/16 Range/Units 18:15 06:07 Chloride 95 L (98-107) mmol/L Carbon Dioxide 34 H (22-30) mmol/L BUN 36 H (7-17) mg/dL Creatinine 1.31 H (0.52-1.04) mg/dL Urine Protein Trace H (Negative) Assessment and Plan Plan: Assessment and plan #1 congestive heart failure, systolic in nature, acute on chronic #2 hypertension #3 hyperlipidemia #4 renal failure, patient only has one kidney. #5 COPD #6 nicotine dependence #7 abnormal troponins, not consistent with acute coronary syndrome. Could be secondary to oxygen supply and demand mismatch. #8 abnormal liver functions, likely secondary to liver congestion. Plan From cardiology's perspective, we'll recommend to continue current dose of IV Lasix. check lytes BUN and creatinine in the morning. DNP note has been reviewed, I agree with a documented findings and plan of care. Patient was seen and examined.
--- NOTE | 2016-07-13 20:15 | CT ---
EXAMINATION TYPE: CT chest wo con DATE OF EXAM: 07/13/2016 7:44 PM COMPARISON: 06/29/2011 HISTORY: Shortness of breath CT DLP: 143 mGycm Automated exposure control for dose reduction was used. FINDINGS: The heart is enlarged. There are mild to moderate bilateral pleural effusions. There is patchy consol idation and atelectasis at the lung bases. There is no pericardial effusion. There is mild aneurysm o f the thoracic aorta. Ascending aorta measures 3.8 cm. Descending aorta measures 3.6 cm. There is ext ensive vascular calcification. There are a few mediastinal lymph nodes that measure up to 1 cm. There is extensive reticular interstitial density in the periphery of both lungs. There are clips from cho lecystectomy. There are some right paraspinal surgical clips or calcification in the right lower lobe . IMPRESSION: THERE IS CARDIOMEGALY WITH PLEURAL EFFUSIONS AND BASILAR PULMONARY INFILTRATES AND ATELECTASIS. HEART IS INCREASED COMPARED TO LAST EXAM. PLEURAL FLUID IS NEW. THIS PROBABLY RELATES TO CHRONIC CONGESTIV E HEART FAILURE. THERE IS EXTENSIVE PERIPHERAL RETICULAR INTERSTITIAL PULMONARY INFILTRATES THAT HAVE PROGRESSED NATY RED TO LAST EXAM AND CONSISTENT WITH IDIOPATHIC PULMONARY FIBROSIS. MILD ANEURYSM OF THE THORACIC AORTA. EXTENSIVE ATHEROSCLEROTIC VASCULAR DISEASE. ANEURYSM APPEARS WOR SE THAN LAST CT SCAN. SIZE HAS INCREASED FROM 3.1 CM TO 3.8 CM.
[2016-07-13] MEDS: acetaZOLAMIDE 250 MG TAB PO SCH (22:28)
[2016-07-14] MEDS: FUROSEMIDE 10 MG/ML 4 ML VIAL IV SCH ×3 (00:42→21:56)
--- NOTE | 2016-07-14 05:14 | PN ---
DATE OF SERVICE: 07/13/2016 PRESENTING COMPLAINT: Short of breath, improved. INTERVAL HISTORY: This patient presented with acute CHF exacerbation, has got multiple valvular abnormalities, COPD exacerbation and right nephrectomy. Breathing continues to improve. Eating better. Has been out of bed. Review of systems done for constitutional, cardiovascular, GI, pulmonary; relevant findings as above. Current medications are reviewed that include IV Lasix 40 q.12, nebulized bronchodilator. On examination, temperature 98.1, pulse 85, respirations 20, blood pressure 106/63, pulse ox 93% on 2 L. GENERAL APPEARANCE: Sitting up, not in distress. EYES: Pupils equal. Conjunctivae normal. NECK: JVD not raised. Mass not palpable. RESPIRATORY: Effort increased. LUNGS: Improved air entry, basal fine crackles. CARDIOVASCULAR: Heart sounds irregular. No edema. ABDOMEN: Soft, nontender. Liver and spleen not palpable. PSYCHIATRY: Alert and oriented x3. Mood and affect normal. INVESTIGATIONS: Bicarb 24. BUN 36, creatinine 1.31. Chest x-ray suggested pulmonary venous hypertension and possibly interstitial lung disease. ASSESSMENT: 1. Acute on chronic congestive heart failure exacerbation from systolic dysfunction with underlying hypertensive heart disease, ejection fraction 20% to 25% with clinical improvement. 2. Moderate to severe mitral regurgitation, moderate to severe tricuspid regurgitation, nonrheumatic. 3. Secondary pulmonary hypertension secondary to chronic obstructive pulmonary disease. 4. Acute chronic obstructive pulmonary disease exacerbation in a chronic smoker. 5. Right nephrectomy, history of prior cancer. 6. Primary osteoarthritis of multiple joints, bilaterally. 7. Chronic urinary stress incontinence. 8. Restless leg syndrome, newly diagnosed. 9. Chronic nicotine dependence present in a smoker. 10. Chronic kidney disease likely nephrosclerosis. 11. Metabolic alkalosis, probably from volume contraction. PLAN: I strongly suspect patient may have significant underlying pulmonary fibrosis. Patient becoming alkalotic. We will add some Diamox. Will also get a high resolution CT scan of the chest. Patient should be able to be switched over to p.o. Lasix by tomorrow morning.
[2016-07-14 06:31] LABS: Potassium 4.4 mmol/L (3.5-5.1)
[2016-07-14] MEDS: SODIUM CHLORIDE 0.9% 1,000 ML IV SCH (06:59)
[2016-07-14] MEDS: CARVEDILOL 3.125 MG TAB PO SCH ×2 (07:00→17:33)
[2016-07-14] MEDS: acetaZOLAMIDE 250 MG TAB PO SCH ×2 (08:12→21:56)
[2016-07-14] MEDS: LOSARTAN 25 MG TAB PO SCH (08:13)
[2016-07-14] MEDS: SPIRONOLACTONE 25 MG TAB PO SCH (08:13)
[2016-07-14] MEDS: ATORVASTATIN 40 MG TAB PO SCH (08:13)
[2016-07-14] MEDS: ASPIRIN 81 MG CHEW PO SCH (08:13)
[2016-07-14] MEDS: IPRATROPIUM-ALBUTEROL 3 ML NEB INHALATION SCH ×4 (08:54→20:46)
--- NOTE | 2016-07-14 09:05 | P.PN ---
Subjective Patient is seen in follow-up for acute kidney injury on chronic kidney disease. Patient has chronic kidney disease stage III secondary to solitary left kidney with baseline creatinine in the range of 1.1-1.3. Creatinine today is little worse compared to yesterday at 1.4. Her dyspnea is improved. Denies vomiting or diarrhea. Does have a headache this morning. She has been diuresing well. Edema is significantly improved. She does of systolic CHF with ejection fraction of 20-25% with moderate to severe mitral regurgitation as well as moderate pulmonary hypertension. Weight is trending down. Vital signs are stable. General: The patient appeared well nourished and normally developed. HEENT: Head exam is unremarkable. Neck is without jugular venous distension. LUNGS: Lungs are clear to auscultation and percussion. Breath sounds decreased. HEART: Rate and Rhythm are regular. First and second heart sounds normal. No murmurs, rubs or gallops. ABDOMEN: Abdominal exam reveals normal bowel sounds. Non-tender and non- distended. No evidence of peritonitis. EXTREMITITES: No clubbing, cyanosis, or edema. Objective - Vital Signs Vital signs: Vital Signs Temp 97.6 F 07/14/16 04:00 Pulse 69 07/14/16 04:00 Resp 18 07/14/16 04:00 BP 109/65 07/14/16 04:00 Pulse Ox 98 07/14/16 08:54 Intake & Output 07/13/16 07/14/16 07/14/16 18:59 06:59 18:59 Intake Total 580 250 Output Total 750 900 400 Balance -170 -900 -150 Weight 44 kg 42.4 kg Intake: IV 220 Sodium Chloride 0.9% 1, 220 000 ml @ 20 mls/hr IV . Q24H [facility] Rx#:[id number] Oral 360 250 Output: Urine 750 900 400 Other: Voiding Method Toilet Toilet Bedpan - Labs CBC & Chem 7: 07/10/16 20:42 07/14/16 05:47 Labs: Abnormal Lab Results - Last 24 Hours (Table) 07/14/16 Range/Units 05:47 Chloride 97 L (98-107) mmol/L BUN 37 H (7-17) mg/dL Creatinine 1.40 H (0.52-1.04) mg/dL Assessment and Plan Plan: Assessment: #1. Nonoliguric acute kidney injury secondary to cardiorenal syndrome. Creatinine a little worse at 1.4 today. Urinalysis and renal ultrasound quite benign. #2. Volume overload. Improving. Weight trending down. #3. Systolic CHF with ejection fraction of 20-25% with moderate to severe mitral regurgitation and moderate pulmonary hypertension. #4. Chronic kidney disease stage III secondary to solitary right kidney. #5. History of right nephrectomy secondary to renal cell carcinoma. #6. Metabolic alkalosis related to volume contraction from diuresis. Improved. Plan: Continue Lasix to 40 mg IV twice daily for another 24 hours due to pleural effusions noted on chest CT. Diamox can likely be discontinued tomorrow. Maintain low salt diet and 1.5 liter fluid restriction. Repeat electrolytes in the morning. Avoid nephrotoxic agents and hypotensive episodes. Follow-up morning chest x-ray.
--- NOTE | 2016-07-14 15:57 | P.PN ---
Subjective Principal diagnosis: CHF This is a 76-year-old female who follows regularly with Dr. VC Fuller in the office, she has history of hypertension, hyperlipidemia, prior myocardial infarction, COPD, nicotine dependence, prior congestive heart failure , renal failure, patient only has one kidney, she follows with Dr. Mcintosh, who presents to the hospital with symptoms of progressively worsening shortness of breath. Found to be in congestive cardiac failure, diuresed well through the night last night. creatinine 1.4. Echocardiogram with Doppler study was performed which revealed an ejection fraction of 20-25% with moderate to severe mitral regurgitation.seen in consultation by nephrology. Currently on Lasix 40 mg IV twice a day. Overall looking much better today. Objective - Vital Signs Vital signs: Vital Signs Temp 97.8 F 07/14/16 15:22 Pulse 78 07/14/16 15:22 Resp 18 07/14/16 15:35 BP 103/56 07/14/16 15:34 Pulse Ox 89 L 07/14/16 15:33 Intake & Output 07/13/16 07/14/16 07/14/16 18:59 06:59 18:59 Intake Total 580 650 Output Total 582 126 3608 Balance -170 -900 -650 Weight 44 kg 42.4 kg Intake: IV 220 Sodium Chloride 0.9% 1, 220 000 ml @ 20 mls/hr IV . Q24H [facility] Rx#:[id number] Oral 360 650 Output: Urine 531 620 7398 Other: Voiding Method Toilet Toilet Toilet Bedpan - Exam PHYSICAL EXAMINATION: HEENT: Head is atraumatic, normocephalic. Pupils equal, round. Neck is supple. There is elevated jugular venous pressure. HEART EXAMINATION: Heart S1, S2 normal. No murmur or gallop heard. CHEST EXAMINATION: Lungs are clear with improvement in air entry to bilateral bases. ABDOMEN: Soft, nontender. Bowel sounds are heard. No organomegaly noted. EXTREMITIES: 2+ peripheral pulses with trace evidence of peripheral edema and no calf tenderness noted. NEUROLOGIC patient is awake, alert and oriented -3. - Labs CBC & Chem 7: 07/10/16 20:42 07/14/16 05:47 Labs: Abnormal Lab Results - Last 24 Hours (Table) 07/14/16 Range/Units 05:47 Chloride 97 L (98-107) mmol/L BUN 37 H (7-17) mg/dL Creatinine 1.40 H (0.52-1.04) mg/dL Assessment and Plan Plan: Assessment and plan #1 congestive heart failure, systolic in nature, acute on chronic #2 hypertension #3 hyperlipidemia #4 renal failure, patient only has one kidney. #5 COPD #6 nicotine dependence #7 abnormal troponins, not consistent with acute coronary syndrome. Could be secondary to oxygen supply and demand mismatch. #8 abnormal liver functions, likely secondary to liver congestion. Plan From cardiology's perspective, we'll recommend to continue current dose of IV Lasix. check lytes BUN and creatinine in the morning. DNP note has been reviewed, I agree with a documented findings and plan of care. Patient was seen and examined.
[2016-07-15] MEDS: SODIUM CHLORIDE 0.9% 1,000 ML IV SCH (05:45)
[2016-07-15] MEDS: IPRATROPIUM-ALBUTEROL 3 ML NEB INHALATION SCH ×4 (08:18→20:36)
--- NOTE | 2016-07-15 08:46 | P.PN ---
Subjective Patient is seen in follow-up for acute kidney injury on chronic kidney disease. Patient has chronic kidney disease stage III secondary to solitary left kidney with baseline creatinine in the range of 1.1-1.3. Creatinine was 1.4 as of yesterday. Her dyspnea is improved. Denies vomiting or diarrhea. Does have a headache this morning. She has been diuresing well. Edema is significantly improved. She does of systolic CHF with ejection fraction of 20- 25% with moderate to severe mitral regurgitation as well as moderate pulmonary hypertension. She is off nasal cannula at this time. Vital signs are stable. General: The patient appeared well nourished and normally developed. HEENT: Head exam is unremarkable. Neck is without jugular venous distension. LUNGS: Lungs are clear to auscultation and percussion. Breath sounds decreased. HEART: Rate and Rhythm are regular. First and second heart sounds normal. No murmurs, rubs or gallops. ABDOMEN: Abdominal exam reveals normal bowel sounds. Non-tender and non- distended. No evidence of peritonitis. EXTREMITITES: No clubbing, cyanosis, or edema. Objective - Vital Signs Vital signs: Vital Signs Temp 97.8 F 07/15/16 08:00 Pulse 88 07/15/16 08:28 Resp 18 07/15/16 08:00 BP 111/66 07/15/16 08:00 Pulse Ox 98 07/15/16 08:00 Intake & Output 07/14/16 07/15/16 07/15/16 18:59 06:59 18:59 Intake Total 850 600 Output Total 1900 Balance -1050 600 Weight 54 kg Intake: Intake, IV Titration 120 Amount Sodium Chloride 0.9% 1, 120 000 ml @ 20 mls/hr IV . Q24H [facility] Rx#:[id number] Oral 850 480 Output: Urine 1900 Other: Voiding Method Toilet Toilet # Voids 2 - Labs CBC & Chem 7: 07/10/16 20:42 07/14/16 05:47 Assessment and Plan Plan: Assessment: #1. Nonoliguric acute kidney injury secondary to cardiorenal syndrome. Creatinine 1.4 as of yesterday. Urinalysis and renal ultrasound quite benign. #2. Volume overload. Improving. #3. Systolic CHF with ejection fraction of 20-25% with moderate to severe mitral regurgitation and moderate pulmonary hypertension. #4. Chronic kidney disease stage III secondary to solitary right kidney. #5. History of right nephrectomy secondary to renal cell carcinoma. #6. Metabolic alkalosis related to volume contraction from diuresis. Improved. Plan: Continue Lasix to 40 mg IV twice daily. Can be transitioned over to oral diuretics. Discontinue Diamox. Maintain low salt diet and 1.5 liter fluid restriction. Repeat electrolytes in the morning. Avoid nephrotoxic agents and hypotensive episodes.
--- NOTE | 2016-07-15 09:05 | PN ---
DATE OF SERVICE: 07/14/2016 CHIEF COMPLAINT: Shortness of breath. INTERVAL HISTORY: This patient presented with acute CHF exacerbation, multiple ( ) abnormalities, COPD exacerbation, and right nephrectomy, did have a CT scan yesterday that confirmed significant pulmonary infiltrates that also explains patient's crackles in addition to the patient being in CHF. Edema has gone down. Overall feels better. Review of systems done for constitutional, cardiovascular, GI, pulmonary; relevant findings as above. Current medications are reviewed that include IV Lasix. On examination, temperature 97.8, pulse 56, respiration 18, blood pressure 85/48, pulse ox 98% on 2 liters. GENERAL APPEARANCE: Sitting up, more comfortable. EYES: Pupils equal. Conjunctivae normal. NECK: JVD not raised. Mass not palpable. RESPIRATORY: Effort increased. LUNGS: Bilateral crackles. CARDIOVASCULAR: Heart sounds irregular. No edema. ABDOMEN: Soft, nontender. Liver and spleen not palpable. PSYCHIATRY: Alert and oriented x3. Mood and affect normal. INVESTIGATIONS: Potassium 4.4. BUN 37, creatinine 1.40, bicarb 49, CT scan of the chest shows extensive peripheral ventricular and interstitial pulmonary infiltrates consistent with idiopathic pulmonary fibrosis, and also cardiomegaly with pleural effusion. ASSESSMENT: 1. Acute on chronic congestive heart failure exacerbation from systolic dysfunction from underlying hypertensive heart disease with ejection fraction 20% to 25% associated with pleural effusion. 2. Moderate to severe mitral regurgitation, moderate to severe tricuspid regurgitation, nonrheumatic. 3. Secondary pulmonary hypertension secondary to chronic obstructive pulmonary disease and idiopathic pulmonary fibrosis. 4. Bilateral pulmonary scarring from idiopathic pulmonary fibrosis, significant. 5. Acute chronic obstructive pulmonary disease exacerbation in a chronic smoker. 6. Right nephrectomy history of prior cancer. 7. Primary osteoarthritis of multiple joints, bilaterally. 8. Chronic urinary stress incontinence. 9. Restless leg syndrome, newly diagnosed. 10. Chronic nicotine independence presently a smoker. 11. Chronic kidney disease, likely nephrosclerosis. 12. Metabolic alkalosis, probably from volume contraction. PLAN: Continue with IV Lasix at least for another 24 hours and keep a close eye on the patient's electrolytes. Repeat chest x-ray in 48 hours. ( ).
[2016-07-15] MEDS: FUROSEMIDE 10 MG/ML 4 ML VIAL IV SCH ×2 (09:11→22:04)
[2016-07-15] MEDS: ASPIRIN 81 MG CHEW PO SCH (09:11)
[2016-07-15] MEDS: CARVEDILOL 3.125 MG TAB PO SCH ×2 (09:11→17:54)
[2016-07-15] MEDS: SPIRONOLACTONE 25 MG TAB PO SCH (09:12)
[2016-07-15] MEDS: LOSARTAN 25 MG TAB PO SCH (09:12)
[2016-07-15] MEDS: ATORVASTATIN 40 MG TAB PO SCH (09:12)
[2016-07-15 09:17] LABS: Potassium 4.3 mmol/L (3.5-5.1)
--- NOTE | 2016-07-15 23:06 | PN ---
DATE OF SERVICE: 07/15/2016 Presenting complaint: Short of breath, improved. INTERVAL HISTORY: This patient presented with CHF exacerbation, COPD exacerbation, CT scan did confirm pulmonary fibrosis. Breathing is better. Sitting up, tolerating a diet. Review of systems done for constitutional, cardiovascular, pulmonary, relevant findings as above. Current medications are reviewed that include IV Lasix. On examination, temperature 97.7, pulse 79, respiration 16, blood pressure 80/54, pulse ox 95% on room air. GENERAL APPEARANCE: Sitting up not in distress. EYES: Pupils equal. Conjunctivae normal. NECK: JVD not raised. Mass not palpable. RESPIRATORY: Effort normal. LUNGS: Bilateral crackles. CARDIOVASCULAR: Heart sounds irregular. No edema. ABDOMEN: Soft, nontender. Liver and spleen not palpable. PSYCHIATRY: Alert and oriented times three. Mood and affect normal. INVESTIGATIONS: Potassium 4.3, bicarb 29, BUN 37, creatinine 1.36. ASSESSMENT: 1. Acute on chronic congestive heart failure exacerbation from systolic dysfunction; underlying hypertensive heart disease, ejection fraction 20% to 25% associated with pleural effusion. 2. Moderate to severe mitral regurgitation, moderate to severe tricuspid regurgitation, nonrheumatic. 3. Secondary pulmonary hypertension secondary to chronic obstructive pulmonary disease and idiopathic pulmonary fibrosis. 4. Bilateral pulmonary scarring from idiopathic pulmonary fibrosis, significant/chronic. 5. Acute chronic obstructive pulmonary disease exacerbation in a current smoker improving. 6. Right nephrectomy. History of prior cancer. 7. Primary osteoarthritis in multiple joints bilaterally. 8. Chronic urinary stress incontinence. 9. Restless leg syndrome. New diagnosis. 10. Chronic nicotine dependence presently a smoker. 11. Chronic kidney disease likely nephrosclerosis. 12. Metabolic alkalosis, likely from ( ). PLAN: The patient overall doing better. The patient should be able to be switched over to oral Lasix tomorrow. The patient encouraged to be out of bed. Follow.
[2016-07-16 07:44] VITALS: BP 116/57; RESP 18; TEMP 98.1
[2016-07-16] MEDS: LOSARTAN 25 MG TAB PO SCH (08:05)
[2016-07-16] MEDS: CARVEDILOL 3.125 MG TAB PO SCH (08:05)
[2016-07-16] MEDS: ASPIRIN 81 MG CHEW PO SCH (08:05)
[2016-07-16] MEDS: ATORVASTATIN 40 MG TAB PO SCH (08:06)
[2016-07-16 08:20] LABS: Calcium 8.9 mg/dL (8.4-10.2); Potassium 4.3 mmol/L (3.5-5.1)
[2016-07-16] MEDS: IPRATROPIUM-ALBUTEROL 3 ML NEB INHALATION SCH ×2 (08:38→12:51)
[2016-07-16 08:41] VITALS: PULSE 80
[2016-07-16] MEDS ORDERED: SPIRONOLACTONE 25 MG TAB PO SCH (09:00)
[2016-07-16] MEDS ORDERED: FUROSEMIDE 40 MG TAB PO SCH (09:00)
--- NOTE | 2016-07-17 14:02 | DS ---
DATE OF ADMISSION: 07/10/2016 DATE OF DISCHARGE: 07/16/2016 FINAL DIAGNOSES: 1. Acute on chronic congestive heart failure exacerbation from systolic dysfunction from underlying hypertensive heart disease, ejection fraction 20% to 25% associated with pleural effusion. 2. Moderate to severe mitral regurgitation, moderate to severe tricuspid regurgitation, nonrheumatic. 3. Secondary pulmonary hypertension secondary to chronic obstructive pulmonary disease and idiopathic pulmonary fibrosis. 4. Bilateral severe idiopathic pulmonary fibrosis, present on admission. 5. Acute chronic obstructive pulmonary disease exacerbation in a current smoker, present on admission. 6. Right nephrectomy history of from prior cancer. 7. Primary osteoarthritis in multiple joints, bilateral. 8. Chronic urinary stress incontinence. 9. Restless leg syndrome, new diagnosis. 10. Chronic nicotine dependence. Patient is a smoker. 11. Chronic kidney disease likely nephrosclerosis, stage 3. 12. Metabolic alkalosis from diuresis. HOSPITAL COURSE: This patient presented with shortness of breath, was found to have EF of 20% to 25%, pleural effusion and also COPD. The patient has been a smoker. Patient also suspected of pulmonary fibrosis, confirmed with high-resolution CT scan, doing better the time of discharge. Actually, pulse ox is 95% on room air. Care was discussed with the patient and overall prognosis is guarded. On examination, the patient has baseline basal crackles from the fibrosis. CONSULTATION: Dr. Mendosa from nephrology. Dr. Bustamante from Cardiology. DISCHARGE MEDICATIONS: 1. Aspirin 81 mg a day. 2. Multivitamin 1 tablet p.o. daily. 3. Miller spray each nostril daily. 4. Lipitor 40 mg a day. 5. Coreg 3.125 p.o. b.i.d. 6. Lasix 40 mg a day. 7. DuoNeb q.i.d. 8. Cozaar 25 mg p.o. q.h.s. 9. Aldactone 25 mg p.o. daily. 10. Lyrica 0.5 mg p.o. q.h.s. Follow up with Dr. Mcintosh in 3 weeks, Dr. Fontanez in 3 days, Dr. Bustamante in 4 weeks. LABS: BMP in 3 to 5 days. Discharge planning more than 35 minutes.
== END 2016-07-16 15:00 | disposition home or self-care (01) | DRG 291 ==
LOC: EC 19:38 → 6SEL 21:56 → 5MS5E 07-14 19:10
PROVIDERS: ADMIT Hospitalist; ATTEND Hospitalist
DX: I13.0 Hypertensive heart and chronic kidney disease with heart failure and stage 1 through stage 4 chronic kidney disease, or unspecified chronic kidney disease (principal); I50.23 Acute on chronic systolic (congestive) heart failure; N17.9 Acute kidney failure, unspecified; E87.3 Alkalosis; I42.9 Cardiomyopathy, unspecified; J84.112 Idiopathic pulmonary fibrosis; K76.1 Chronic passive congestion of liver; J44.1 Chronic obstructive pulmonary disease with (acute) exacerbation; I27.2 Other secondary pulmonary hypertension; I36.1 Nonrheumatic tricuspid (valve) insufficiency; I34.0 Nonrheumatic mitral (valve) insufficiency; E78.5 Hyperlipidemia, unspecified; F17.210 Nicotine dependence, cigarettes, uncomplicated; G25.81 Restless legs syndrome; I25.2 Old myocardial infarction; M15.9 Polyosteoarthritis, unspecified; N18.3 Chronic kidney disease, stage 3 (moderate); N39.3 Stress incontinence (female) (male); T50.2X5A Adverse effect of carbonic-anhydrase inhibitors, benzothiadiazides and other diuretics, initial encounter; Z79.82 Long term (current) use of aspirin; Z82.49 Family history of ischemic heart disease and other diseases of the circulatory system; Z82.5 Family history of asthma and other chronic lower respiratory diseases; Z85.528 Personal history of other malignant neoplasm of kidney; Z85.850 Personal history of malignant neoplasm of thyroid; Z88.5 Allergy status to narcotic agent; Z90.5 Acquired absence of kidney
CPT/HCPCS: 36415; 71020; 71250; 76770; 80048; 80053; 81003; 82550; 82553; 83735; 83880; 84484; 85025; 85610; 85730; 87040; 93005; 93306; 94640; 94760; 96365; 96376; 99291

== ENCOUNTER → 2016-12-15 | Outpatient (CLI) | payer MEDICARE ==
[2016-12-15 13:58] LABS: Basophils # (A) 0.1 k/uL (0-0.2); Basophils % (A) 1 %; CH 32.8; Eosinophils # (A) 0.3 k/uL (0-0.7); Eosinophils % (A) 3 %; HCT 39.6 % (34.0-46.0); HDW 2.26; HGB 12.7 gm/dL (11.4-16.0); Luc # (Auto) 0.21; Luc % (Auto) 2; Lymphocytes # (A) 2.2 k/uL (1.0-4.8); Lymphocytes % (A) 19 %; MCH 32.2 pg (25.0-35.0); MCHC 32.2 g/dL (31.0-37.0); MCV 99.8 fL (80.0-100.0); Mean Platelet Volume 7.5; Monocytes # (A) 0.7 k/uL (0-1.0); Monocytes % (A) 6 %; Neutrophils # (A) 7.9 k/uL (1.3-7.7); Neutrophils % (A) 69 %; RBC 3.96 m/uL (3.80-5.40); RDW 13.6 % (11.5-15.5); WBC 11.5 k/uL (3.8-10.6); WBC (Perox) 11.09
[2016-12-15 14:13] LABS: Calcium 9.6 mg/dL (8.4-10.2); Magnesium 2.1 mg/dL (1.6-2.3); Phosphorous 4.6 mg/dL (2.5-4.5); Potassium 5.4 mmol/L (3.5-5.1); Uric Acid 8.6 mg/dL (3.7-7.4)
[2016-12-15 19:09] LABS: Iron Saturation 25.33 (12.00-45.00)
== END | disposition home or self-care (01) ==
LOC: LABWHC1 12:52
PROVIDERS: ATTEND Nurse Practitioner Family
DX: N18.3 Chronic kidney disease, stage 3 (moderate) (principal); D64.9 Anemia, unspecified; R80.9 Proteinuria, unspecified; E21.3 Hyperparathyroidism, unspecified; E55.9 Vitamin D deficiency, unspecified; M10.9 Gout, unspecified
CPT/HCPCS: 36415; 80048; 82306; 82570; 82728; 83540; 83550; 83735; 83970; 84100; 84156; 84550; 85025

== ENCOUNTER 2018-03-05 16:05 | Inpatient (IN) | payer MEDICARE ==
[2018-03-05 16:56] LABS: Basophils % (A) 0 %; Eosinophils # (A) 0.1 k/uL (0-0.7); Eosinophils % (A) 0 %; HCT 36.7 % (34.0-46.0); HGB 11.2 gm/dL (11.4-16.0); Hypochromasia Marked; Lymphocytes # (A) 1.1 k/uL (1.0-4.8); Lymphocytes % (A) 5 %; MCH 28.1 pg (25.0-35.0); MCHC 30.5 g/dL (31.0-37.0); MCV 92.3 fL (80.0-100.0); Mean Platelet Volume 7.1; Monocytes # (A) 1.2 k/uL (0-1.0); Monocytes % (A) 6 %; Neutrophils # (A) 17.9 k/uL (1.3-7.7); Neutrophils % (A) 88 %; Platelet Count 244 k/uL (150-450); RBC 3.97 m/uL (3.80-5.40); RDW 15.2 % (11.5-15.5); WBC 20.4 k/uL (3.8-10.6)
[2018-03-05 17:04] LABS: INR 1.1 (<1.2); Partial Thromboplastin Time 24.1 sec (22.0-30.0); Prothrombin Time 11.6 sec (9.0-12.0)
[2018-03-05 17:22] LABS: Creatine Kinase MB 1.7 ng/mL (0.0-2.4)
[2018-03-05 17:38] LABS: Albumin 3.4 g/dL (3.5-5.0); Calcium 8.7 mg/dL (8.4-10.2); Potassium 4.5 mmol/L (3.5-5.1); Total Bilirubin 0.8 mg/dL (0.2-1.3); Total Protein 6.6 g/dL (6.3-8.2)
[2018-03-05 17:43] LABS: Troponin I 0.056 ng/mL (0.000-0.034)
--- NOTE | 2018-03-05 17:53 | XR ---
EXAMINATION TYPE: XR chest 2V DATE OF EXAM: 03/05/2018 COMPARISON: 07/13/2016 HISTORY: Chest pain TECHNIQUE: Frontal and lateral views of the chest are obtained. FINDINGS: Heart is enlarged. There is coarsening of the pulmonary interstitial markings. There is sl ight blunting of the costophrenic angles. Pulmonary vascularity is difficult to evaluate because of t he extensive lung disease. Thoracic aorta is atheromatous. IMPRESSION: Cardiomegaly and advanced pulmonary fibrosis. There is decrease in the pleural fluid com pared to old exam. Mild heart failure is possible.
[2018-03-05] MEDS ORDERED: ACETAMINOPHEN TAB 500 MG TAB PO STA (18:09)
[2018-03-05] MEDS ORDERED: SODIUM CHLORIDE 0.9% 1,000 ML IV ONE (18:09)
[2018-03-05] MEDS ORDERED: MORPHINE SULFATE 2 MG/ML SYRINGE IVP STA (18:09)
[2018-03-05] MEDS ORDERED: ONDANSETRON 4 MG/2 ML VIAL IVP STA (18:09)
[2018-03-05] MEDS ORDERED: LEVOFLOXACIN 750MG-D5W PMX 750 MG in DEXTROSE/WATER 1 150ML.BAG IVPB STA (18:11)
--- NOTE | 2018-03-05 18:38 | ED ---
General Adult HPI - General Source: patient Mode of arrival: wheelchair Limitations: no limitations <Albert Rothman - Last Filed: 03/05/18 18:27> <Yelena France - Last Filed: 03/05/18 20:17> - General Chief complaint: Chest Pain Stated complaint: SOB, diarrhea, weakness Time Seen by Provider: 03/05/18 17:59 - History of Present Illness Initial comments: 78-year-old female patient presents to the emergency department today for evaluation with complaints of shortness of breath, abdominal pain, and diarrhea. The patient states that for the last 2 days she has had increasing shortness of breath, fatigue, and weakness. She states that 2-3 days ago she started having watery diarrhea, multiple times per day. States she is having left lower quadrant abdominal pain with this. She is reporting sore and dry mouth as well. She denies any hematochezia or melena with the diarrhea. States that she was nauseated earlier in the day today but denies any vomiting. Patient denies any fevers but states she has been chilled. She denies any hematuria, dysuria, urinary frequency, urinary urgency. Patient states that she has been out of all of her medications for the last 6 months because she has not been able to see her doctor due to medical bills. Patient denies any recent rash, back pain, numbness, tingling, dizziness, headache, visual changes , or any other complaints. (Yelena France) - Related Data Home Medications Medication Instructions Recorded Confirmed Aspirin 81 mg PO DAILY 09/11/14 03/05/18 Otc Water Pill (Unknown) 0 mg PO DAILY 03/05/18 03/05/18 Previous Rx's Medication Instructions Recorded Atorvastatin [Lipitor] 40 mg PO DAILY #30 tab 07/16/16 Losartan [Cozaar] 25 mg PO HS #30 tab 07/16/16 rOPINIRole HCL [Requip] 0.5 mg PO HS #30 tab 07/16/16 Allergies Allergy/AdvReac Type Severity Reaction Status Date / Time codeine Allergy PARALYZED Verified 03/05/18 19:27 cyclobenzaprine Allergy Unknown Verified 03/05/18 19:27 [From Flexeril] Review of Systems ROS Other: All systems not noted in ROS Statement are negative. <Albert Rothman - Last Filed: 03/05/18 18:27> ROS Other: All systems not noted in ROS Statement are negative. <Yelena Fracne - Last Filed: 03/05/18 20:17> ROS Statement: Those systems with pertinent positive or pertinent negative responses have been documented in the HPI. Past Medical History Past Medical History: Cancer, Heart Failure, Hypertension, Pneumonia History of Any Multi-Drug Resistant Organisms: None Reported Past Surgical History: Appendectomy, Bowel Resection, Cholecystectomy Additional Past Surgical History / Comment(s): right kidney removal, thyroidectomy Past Anesthesia/Blood Transfusion Reactions: No Reported Reaction Past Psychological History: No Psychological Hx Reported Smoking Status: Former smoker Past Alcohol Use History: None Reported Past Drug Use History: None Reported - Past Family History Father Family Medical History: COPD, Coronary Artery Disease (CAD) Additional Family Medical History / Comment(s): 1 lung removed Mother Family Medical History: Coronary Artery Disease (CAD) <Albert Rothman - Last Filed: 03/05/18 18:27> General Exam Limitations: no limitations <Albert Rothman - Last Filed: 03/05/18 18:27> General appearance: alert, in no apparent distress, other (This is a well- developed, thin appearing elderly female patient in no acute distress. Vital signs upon presentation are temperature 99.9F, pulse 97, respirations 18, blood pressure 126/71, pulse ox 93% on room air.) Eye exam: Present: normal appearance, PERRL, EOMI. Absent: scleral icterus, conjunctival injection, periorbital swelling ENT exam: Present: normal exam, mucous membranes moist, other (Patient has white plaques over the roof of the mouth, surrounding erythema.). Absent: normal oropharynx Respiratory exam: Present: normal lung sounds bilaterally. Absent: respiratory distress, wheezes, rales, rhonchi, stridor Cardiovascular Exam: Present: regular rate, normal rhythm, normal heart sounds. Absent: systolic murmur, diastolic murmur, rubs, gallop, clicks GI/Abdominal exam: Present: soft, tenderness (Left lower quadrant tenderness), normal bowel sounds. Absent: distended, guarding, rebound, rigid Neurological exam: Present: alert, oriented X3, CN II-XII intact Psychiatric exam: Present: normal affect, normal mood Skin exam: Present: warm, dry, intact, normal color. Absent: rash <Yelena France - Last Filed: 03/05/18 20:17> Vital Signs 03/05/18 03/05/18 16:22 19:23 Temperature 99.9 F H Pulse Rate 97 90 Respiratory 18 18 Rate Blood Pressure 126/71 119/88 O2 Sat by Pulse 93 L 99 Oximetry Medical Decision Making - Lab Data Result diagrams: 03/05/18 16:31 03/05/18 16:31 <Albert Rothman - Last Filed: 03/05/18 18:27> - Lab Data Result diagrams: 03/05/18 16:31 03/05/18 16:31 - Radiology Data Radiology results: report reviewed, image reviewed <Yelena France - Last Filed: 03/05/18 20:17> - Medical Decision Making Medical decision making; this is a 70-year-old female with complaint of diarrhea for 3 days and then she needed. Butter sandwich and it stopped. Also history of COPD complains of feeling short of breath without chest pain. States she quit smoking 3 weeks ago. Also past history of diverticulitis and she is complaining of left lower quadrant pain. Workup pending. (Albert Rothman) 70-year-old female patient presented to the emergency department today for multiple complaints including shortness of breath, fatigue, weakness, diarrhea, and abdominal pain. Physical examination did reveal decreased breath sounds and left lower quadrant abdominal tenderness. Labs reviewed and did reveal white blood cell count of 20.4, neutrophil count 17.9, troponin was 0.056, BNP 49,500, influenza testing negative. X-ray showed extensive pulmonary fibrosis with possible heart failure. CT abdomen and pelvis was obtained given the white count and abdominal pain, this did show evidence of diverticulitis was some free fluid in the pelvis. Patient also evidence of bilateral lower lobe pneumonia on CT. We did start patient on Levaquin and Flagyl. We will start gentle diuresis with 20 mg of Lasix twice daily. Patient be admitted to the hospital with consults for cardiology and pulmonology. My attending Dr. Rothman did see the patient and does agree with the plan. (Yelena France) - Lab Data Lab Results 03/05/18 03/05/18 03/05/18 Range/Units 16:31 16:31 16:31 WBC 20.4 H (3.8-10.6) k/uL RBC 3.97 (3.80-5.40) m/uL Hgb 11.2 L (11.4-16.0) gm/dL Hct 36.7 (34.0-46.0) % MCV 92.3 (80.0-100.0) fL MCH 28.1 (25.0-35.0) pg MCHC 30.5 L (31.0-37.0) g/dL RDW 15.2 (11.5-15.5) % Plt Count 244 (150-450) k/uL Neutrophils % 88 % Lymphocytes % 5 % Monocytes % 6 % Eosinophils % 0 % Basophils % 0 % Neutrophils # 17.9 H (1.3-7.7) k/uL Lymphocytes # 1.1 (1.0-4.8) k/uL Monocytes # 1.2 H (0-1.0) k/uL Eosinophils # 0.1 (0-0.7) k/uL Basophils # 0.0 (0-0.2) k/uL Hypochromasia Marked PT (9.0-12.0) sec INR (<1.2) APTT (22.0-30.0) sec Sodium 141 (137-145) mmol/L Potassium 4.5 (3.5-5.1) mmol/L Chloride 111 H (98-107) mmol/L Carbon Dioxide 18 L (22-30) mmol/L Anion Gap 12 mmol/L BUN 20 H (7-17) mg/dL Creatinine 1.03 (0.52-1.04) mg/dL Est GFR (CKD-EPI)AfAm 60 (>60 ml/min/1.73 sqM) Est GFR (CKD-EPI)NonAf 52 (>60 ml/min/1.73 sqM) Glucose 134 H (74-99) mg/dL Plasma Lactic Acid Artemio (0.7-2.0) mmol/L Calcium 8.7 (8.4-10.2) mg/dL Magnesium 2.0 (1.6-2.3) mg/dL Total Bilirubin 0.8 (0.2-1.3) mg/dL AST 40 H (14-36) U/L ALT 39 (9-52) U/L Alkaline Phosphatase 90 (38-126) U/L Total Creatine Kinase 94 (30-135) U/L CK-MB (CK-2) 1.7 (0.0-2.4) ng/mL CK-MB (CK-2) Rel Index 1.8 Troponin I 0.056 H* (0.000-0.034) ng/mL NT-Pro-B Natriuret Pep pg/mL Total Protein 6.6 (6.3-8.2) g/dL Albumin 3.4 L (3.5-5.0) g/dL Influenza Type A RNA (Not Detectd) Influenza Type B (PCR) (Not Detectd) 03/05/18 03/05/18 03/05/18 Range/Units 16:31 16:31 18:20 WBC (3.8-10.6) k/uL RBC (3.80-5.40) m/uL Hgb (11.4-16.0) gm/dL Hct (34.0-46.0) % MCV (80.0-100.0) fL MCH (25.0-35.0) pg MCHC (31.0-37.0) g/dL RDW (11.5-15.5) % Plt Count (150-450) k/uL Neutrophils % % Lymphocytes % % Monocytes % % Eosinophils % % Basophils % % Neutrophils # (1.3-7.7) k/uL Lymphocytes # (1.0-4.8) k/uL Monocytes # (0-1.0) k/uL Eosinophils # (0-0.7) k/uL Basophils # (0-0.2) k/uL Hypochromasia PT 11.6 (9.0-12.0) sec INR 1.1 (<1.2) APTT 24.1 (22.0-30.0) sec Sodium (137-145) mmol/L Potassium (3.5-5.1) mmol/L Chloride (98-107) mmol/L Carbon Dioxide (22-30) mmol/L Anion Gap mmol/L BUN (7-17) mg/dL Creatinine (0.52-1.04) mg/dL Est GFR (CKD-EPI)AfAm (>60 ml/min/1.73 sqM) Est GFR (CKD-EPI)NonAf (>60 ml/min/1.73 sqM) Glucose (74-99) mg/dL Plasma Lactic Acid Artemio 1.6 (0.7-2.0) mmol/L Calcium (8.4-10.2) mg/dL Magnesium (1.6-2.3) mg/dL Total Bilirubin (0.2-1.3) mg/dL AST (14-36) U/L ALT (9-52) U/L Alkaline Phosphatase (38-126) U/L Total Creatine Kinase (30-135) U/L CK-MB (CK-2) (0.0-2.4) ng/mL CK-MB (CK-2) Rel Index Troponin I (0.000-0.034) ng/mL NT-Pro-B Natriuret Pep 66887 pg/mL Total Protein (6.3-8.2) g/dL Albumin (3.5-5.0) g/dL Influenza Type A RNA (Not Detectd) Influenza Type B (PCR) (Not Detectd) 03/05/18 Range/Units 18:33 WBC (3.8-10.6) k/uL RBC (3.80-5.40) m/uL Hgb (11.4-16.0) gm/dL Hct (34.0-46.0) % MCV (80.0-100.0) fL MCH (25.0-35.0) pg MCHC (31.0-37.0) g/dL RDW (11.5-15.5) % Plt Count (150-450) k/uL Neutrophils % % Lymphocytes % % Monocytes % % Eosinophils % % Basophils % % Neutrophils # (1.3-7.7) k/uL Lymphocytes # (1.0-4.8) k/uL Monocytes # (0-1.0) k/uL Eosinophils # (0-0.7) k/uL Basophils # (0-0.2) k/uL Hypochromasia PT (9.0-12.0) sec INR (<1.2) APTT (22.0-30.0) sec Sodium (137-145) mmol/L Potassium (3.5-5.1) mmol/L Chloride (98-107) mmol/L Carbon Dioxide (22-30) mmol/L Anion Gap mmol/L BUN (7-17) mg/dL Creatinine (0.52-1.04) mg/dL Est GFR (CKD-EPI)AfAm (>60 ml/min/1.73 sqM) Est GFR (CKD-EPI)NonAf (>60 ml/min/1.73 sqM) Glucose (74-99) mg/dL Plasma Lactic Acid Artemio (0.7-2.0) mmol/L Calcium (8.4-10.2) mg/dL Magnesium (1.6-2.3) mg/dL Total Bilirubin (0.2-1.3) mg/dL AST (14-36) U/L ALT (9-52) U/L Alkaline Phosphatase (38-126) U/L Total Creatine Kinase (30-135) U/L CK-MB (CK-2) (0.0-2.4) ng/mL CK-MB (CK-2) Rel Index Troponin I (0.000-0.034) ng/mL NT-Pro-B Natriuret Pep pg/mL Total Protein (6.3-8.2) g/dL Albumin (3.5-5.0) g/dL Influenza Type A RNA Not Detected (Not Detectd) Influenza Type B (PCR) Not Detected (Not Detectd) - Radiology Data Two-view x-ray of the chest is obtained. Heart is enlarged. There is course of the pulmonary interstitial markings. There is slight blunting of the costophrenic angles. Pulmonary vascularity is difficult to evaluate because of the extensive lung disease. Thoracic aorta is atheromatous. Impression by Dr. Pittman shows cardiomegaly and advanced pulmonary fibrosis. There is decrease in pleural fluid compared to old exam. Mild heart failure as possible. CT abdomen and pelvis with contrast was obtained. Impression shows fluid in the pelvis and wall thickening of the sigmoid colon with multiple diverticula. This is consistent with diverticulitis that is a change compared to old exam. No drainable abscess identified. There is evidence of mild rectal and vaginal prolapse also present to some degree an old exam. There is no bilateral lower lobe patchy pneumonia and atelectasis compared to old exam. There is upper abdominal and lower thoracic aortic aneurysm increased compared to old exam. There is significant cardiomegaly that is new compared to old exam. Heart and lungs appearance could relate to congestive heart failure. (Yelena France) Disposition <Albert Rothman - Last Filed: 03/05/18 18:27> Decision to Admit Reason: Admit from EC Decision Date: 03/05/18 Decision Time: 20:17 <Yelena France - Last Filed: 03/05/18 20:17> Clinical Impression: Diverticulitis, CHF (congestive heart failure), Pneumonia of both lower lobes Disposition: ADMITTED IP TO THIS [facility] Condition: Serious Referrals: None,Stated [Primary Care Provider] - 1-2 days
--- NOTE | 2018-03-05 19:35 | CT ---
EXAMINATION TYPE: CT abdomen pelvis w con DATE OF EXAM: 03/05/2018 COMPARISON: 06/04/2011 HISTORY: Abdominal pain and diarrhea kidney cancer. Right nephrectomy CT DLP: 501.7 mGycm Automated exposure control for dose reduction was used. TECHNIQUE: Helical acquisition of images was performed from the lung bases through the pelvis. CONTRAST: Performed without Oral Contrast and with IV Contrast, patient injected with 100 mL of Isovue 300. FINDINGS: Heart is moderately enlarged. There is no pericardial effusion. There are bilateral basilar pulmonary airspace infiltrates and atelectasis. There is aneurysm of the upper abdominal aorta and lower thora cic aorta. There is some thrombus on the posterior wall. Aorta measures 4.2 cm. Liver shows no focal defect. There are clips from cholecystectomy. Spleen appears normal. There is no sign of pancreatic mass. There is extensive vascular calcification. The bile ducts are not dilated. There is no adrenal mass. There is right-sided nephrectomy with surgical clips. Left kidney shows no hydronephrosis or mass. There is 1.5 cm cortical cyst upper pole left kidney. There is 1 cm cortical cyst posterior left kidney. Left ureter is not dilated. The bladder distends smoothly. There is small amount of free fluid in the pelvis. There is no inguinal hernia. There is some descent of the vagina suggestive of some degree of prolapse. There is similar change of the rectum. There are multiple diverticula in the sigmoid colon. There is some wall thickening around the mid sig moid colon and minimal fluid density. Lumbar spine is intact. I see no focal bone destruction. There is 10% depression superior endplate of L4 vertebra. There is no mesenteric edema or adenopathy. There is no evidence of retroperitoneal adenopathy. IMPRESSION: THERE IS SOME FLUID IN THE PELVIS AND WALL THICKENING OF THE SIGMOID COLON WITH MULTIPLE DIVERTICULA. THIS IS CONSISTENT WITH DIVERTICULITIS THAT IS A CHANGE COMPARED TO OLD EXAM. NO DRAINABLE ABSCESS I DENTIFIED. THERE IS EVIDENCE FOR MILD RECTAL AND VAGINAL PROLAPSE ALSO PRESENT 2 SOME DEGREE ON THE OLD EXAM. THERE IS NEW BILATERAL LOWER LOBE PATCHY PNEUMONIA AND ATELECTASIS COMPARED TO OLD EXAM. THERE IS UPP ER ABDOMINAL AND LOWER THORACIC AORTIC ANEURYSM INCREASED COMPARED TO OLD EXAM. THERE IS SIGNIFICANT CARDIOMEGALY THAT IS NEW COMPARED TO OLD EXAM. HEART AND LUNGS APPEARANCE COULD RELATE TO CONGESTIVE HEART FAILURE.
[2018-03-05] MEDS ORDERED: metroNIDAZOLE-NS PMX 500 MG in SALINE 1 100ML.BAG IVPB STA (19:43)
[2018-03-05] MEDS ORDERED: NALOXONE 0.4 MG/ML 1 ML VIAL IV PRN (20:09)
[2018-03-05] MEDS ORDERED: MORPHINE SULFATE 2 MG/ML SYRINGE IV PRN (20:09)
[2018-03-05] MEDS ORDERED: LEVOFLOXACIN 750MG-D5W PMX 750 MG in DEXTROSE/WATER 1 150ML.BAG IVPB SCH (20:30)
[2018-03-05] MEDS: LOSARTAN 25 MG TAB PO SCH (22:25)
[2018-03-06 00:35] LABS: Creatine Kinase MB 1.7 ng/mL (0.0-2.4)
[2018-03-06 00:37] LABS: Troponin I 0.06 ng/mL (0.000-0.034)
[2018-03-06 04:50] LABS: Appearance,Urine Cloudy (Clear); Bilirubin,Urine Negative (Negative); Blood,Urine Small (Negative); Color,Urine Yellow; Glucose,Urine (UA) Negative (Negative); Ketones,Urine Trace (Negative); Leukocyte Esterase,Urine Negative (Negative); Mucus,Urine Few /hpf; Nitrite,Urine Negative (Negative); Protein,Urine 3+ (Negative); Squamous Epithelial Cell,Urine 2 /hpf (0-4); WBC,Urine 6 /hpf (0-5)
[2018-03-06] MEDS: metroNIDAZOLE-NS PMX 500 MG in SALINE 1 100ML.BAG IVPB SCH ×4 (05:06→21:01)
[2018-03-06 06:11] LABS: Basophils % (A) 0 %; Eosinophils % (A) 0 %; HCT 33.6 % (34.0-46.0); Hypochromasia Marked; Lymphocytes # (A) 0.7 k/uL (1.0-4.8); Lymphocytes % (A) 4 %; MCH 27.9 pg (25.0-35.0); MCHC 29.7 g/dL (31.0-37.0); Mean Platelet Volume 6.9; Monocytes # (A) 0.9 k/uL (0-1.0); Monocytes % (A) 5 %; Neutrophils # (A) 15.8 k/uL (1.3-7.7); Neutrophils % (A) 89 %; Platelet Count 227 k/uL (150-450); Poikilocytosis Slight; RBC 3.57 m/uL (3.80-5.40); RDW 15.3 % (11.5-15.5); WBC 17.6 k/uL (3.8-10.6)
[2018-03-06 06:23] LABS: Albumin 2.7 g/dL (3.5-5.0); Calcium 8.1 mg/dL (8.4-10.2); Potassium 4.6 mmol/L (3.5-5.1); Total Bilirubin 0.8 mg/dL (0.2-1.3); Total Protein 5.8 g/dL (6.3-8.2)
[2018-03-06 07:36] LABS: Creatine Kinase MB 2.3 ng/mL (0.0-2.4)
[2018-03-06 07:40] LABS: Troponin I 0.047 ng/mL (0.000-0.034)
[2018-03-06] MEDS ORDERED: FUROSEMIDE 20 MG TAB PO SCH (09:00)
[2018-03-06] MEDS ORDERED: FUROSEMIDE 10 MG/ML 4 ML VIAL IV STA (13:43)
[2018-03-06] MEDS: FUROSEMIDE 10 MG/ML 2 ML VIAL IV SCH ×2 (16:25→21:02)
[2018-03-06] MEDS: ATORVASTATIN 40 MG TAB PO SCH (16:25)
[2018-03-06] MEDS: ASPIRIN 81 MG PO SCH (16:25)
[2018-03-06] MEDS ORDERED: IPRATROPIUM-ALBUTEROL 3 ML NEB INHALATION PRN (16:27)
--- NOTE | 2018-03-06 16:46 | P.CNPUL ---
History of Present Illness Consult date: 03/06/18 Requesting physician: Tony E Sheet Reason for consult: dyspnea, pneumonia, pulmonary fibrosis, abnormal CXR/CT, other Chief complaint: Weakness, diurrhea, dyspnea, cough, congestion History of present illness: This is a 78-year-old white female patient who presented to the emergency department on 03/05/2018 at 1600 for evaluation of worsening shortness of breath , severe weakness, cough with production of brownish colored phlegm, chills, diarrhea and thrush in her mouth. The shortness of breath has been increasingly worse for last few days, patient has been quite dyspneic even walking to the bathroom. Patient has been incontinent of watery diarrhea, patient denied any visible blood in it, no melena, no hematochezia. Patient reports a sore throat, she states she thinks she has thrush in her mouth. Patient had some chest discomfort across her anterior chest, without radiation, but associated with some mild nausea, no diaphoresis. She stated it lasted about 15 minutes, currently resolved. Patient has a medical history of COPD, not oxygen dependent at baseline, previous episodes of pneumonia, chronic congestive heart failure with systolic dysfunction and previously documented ejection fraction of 20-25%, valvular heart disease moderate to severe mitral regurgitation, moderate secondary pulmonary hypertension and moderate to severe tricuspid regurg. Patient has not been seen at this hospital in over a year, patient had not been to a doctor and has not refilled her prescription because she has been unable to follow with a doctor related to medical bills. Other history includes nephrectomy related to renal carcinoma, chronic kidney disease stage III, hypertension, thyroidectomy for history of thyroid cancer, chronic nicotine dependence with over 44 [id number] smoking history, bilateral idiopathic pulmonary fibrosis previously noted on chest x-rays and CT scans. Patient had a low-grade fever on admission, has been afebrile since. Asked x- ray showed cardiomegaly and advanced pulmonary fibrosis, possibility of mild heart failure. Abdomen and pelvis CT showed wall thickening of the sigmoid colon with multiple diverticula, system with diverticulitis. No drainable abscess was identified. There was evidence for mild rectal and vaginal prolapse. She has history bilateral lower lobe patchy infiltrates that could relate to pneumonia Or atelectasis. Labs showed WBC of 20.4, hemoglobin of 11.2 , INR was 1.1, sodium is 141, potassium is 4.5, chloride was 111, CO2 was 18, BUN is 20, and creatinine is 1.03, proBNP was 49,500; troponins were elevated at 0.056, 0.060, and 0.047. Patient was started on IV diuretics, empiric antibiotics with Levaquin and Flagyl, she is quite congested and wheezy and dyspneic with conversation. We're seeing this patient in consultation for acute exacerbation of COPD, underlying pneumonia is difficult to exclude on the background of interstitial lung disease changes present on the CT chest. Review of Systems All systems: negative Constitutional: Denies chills, Denies fever Eyes: denies blurred vision, denies pain Ears, nose, mouth and throat: Denies headache, Denies sore throat Cardiovascular: Reports decreased exercise tolerance, Reports dyspnea on exertion, Reports shortness of breath, Denies chest pain Respiratory: Reports congestion, Reports cough, Reports cough with sputum, Reports dyspnea, Reports home oxygen, Reports respiratory infections, Reports wheezing Gastrointestinal: Denies abdominal pain, Denies diarrhea, Denies nausea, Denies vomiting Genitourinary: Denies dysuria, Denies hematuria Musculoskeletal: Denies myalgias Integumentary: Denies pruritus, Denies rash Neurological: Denies numbness, Denies weakness Psychiatric: Denies anxiety, Denies depression Endocrine: Denies fatigue, Denies weight change Past Medical History Past Medical History: Cancer, Heart Failure, COPD, Hypertension, Pneumonia Additional Past Medical History / Comment(s): "right kidney cancer, kidney was removed" Thyroid cancer. History of Any Multi-Drug Resistant Organisms: None Reported Past Surgical History: Appendectomy, Bowel Resection, Cholecystectomy Additional Past Surgical History / Comment(s): right kidney removal, thyroidectomy Past Anesthesia/Blood Transfusion Reactions: No Reported Reaction Past Psychological History: No Psychological Hx Reported Smoking Status: Current every day smoker Past Alcohol Use History: None Reported Past Drug Use History: None Reported Additional Drug Use History / Comment(s): 1 cigarette a day - Past Family History Father Family Medical History: COPD, Coronary Artery Disease (CAD) Additional Family Medical History / Comment(s): Right nephrectomy Mother Family Medical History: Coronary Artery Disease (CAD) Medications and Allergies Home Medications Medication Instructions Recorded Confirmed Type Aspirin 81 mg PO DAILY 09/11/14 03/05/18 History Atorvastatin [Lipitor] 40 mg PO DAILY #30 tab 07/16/16 03/05/18 Rx Losartan [Cozaar] 25 mg PO HS #30 tab 07/16/16 03/05/18 Rx rOPINIRole HCL [Requip] 0.5 mg PO HS #30 tab 07/16/16 03/05/18 Rx Otc Water Pill (Unknown) 0 mg PO DAILY 03/05/18 03/05/18 History Allergies Allergy/AdvReac Type Severity Reaction Status Date / Time codeine Allergy PARALYZED Verified 03/05/18 19:27 cyclobenzaprine Allergy Unknown Verified 03/05/18 19:27 [From Flexeril] Physical Exam Vitals: Vital Signs Temp Pulse Pulse Resp BP BP Pulse Ox 03/06/18 12:00 98.6 F 83 18 168/74 92 L 03/06/18 08:00 98.1 F 74 18 126/86 96 03/06/18 04:00 97.9 F 70 16 113/70 94 L 03/05/18 23:33 78 20 03/05/18 23:14 70 20 130/78 96 03/05/18 22:15 73 20 124/84 97 03/05/18 21:54 78 20 130/78 96 03/05/18 19:23 90 18 119/88 99 03/05/18 16:22 99.9 F H 97 18 126/71 93 L Intake and Output 03/06/18 03/06/18 03/06/18 06:59 14:59 22:59 Intake Total 120 Balance 120 Intake: Oral 120 Other: Voiding Method Bedpan Bedpan # Voids 2 GENERAL EXAM: Alert, pleasant, 78-year-old white female, resting on the gurney , covered with blankets, no apparent distress HEAD: Normocephalic/atraumatic. EYES: Normal reaction of pupils, equal size. Conjunctiva pink, sclera white. NOSE: Clear with pink turbinates. THROAT: No erythema or exudates. NECK: No masses, no JVD, no thyroid enlargement, no adenopathy. CHEST: No chest wall deformity. Symmetrical expansion. LUNGS: Lung sounds are positive for diffuse rhonchi, wheezes CVS: Regular rate and rhythm, normal S1 and S2, no gallops, no murmurs, no rubs ABDOMEN: Soft, nontender. No hepatosplenomegaly, normal bowel sounds, no guarding or rigidity. EXTREMITIES: No clubbing, no edema, no cyanosis, 2+ pulses and upper and lower extremities. MUSCULOSKELETAL: Muscle strength and tone normal. SPINE: No scoliosis or deformity SKIN: No rashes CENTRAL NERVOUS SYSTEM: Alert and oriented -3. No focal deficits, tone is normal in all 4 extremities. PSYCHIATRIC: Alert and oriented -3. Appropriate affect. Intact judgment and insight. Results - Laboratory Findings CBC and BMP: 03/06/18 05:35 03/06/18 05:35 PT/INR, D-dimer PT 11.6 sec (9.0-12.0) 03/05/18 16:31 INR 1.1 (<1.2) 03/05/18 16:31 Abnormal lab findings: Abnormal Labs 03/05/18 03/05/18 03/05/18 16:31 16:31 16:31 WBC 20.4 H RBC Hgb 11.2 L Hct MCHC 30.5 L Neutrophils # 17.9 H Lymphocytes # Monocytes # 1.2 H Chloride 111 H Carbon Dioxide 18 L BUN 20 H Glucose 134 H Calcium AST 40 H Troponin I 0.056 H* Total Protein Albumin 3.4 L Urine Appearance Ur Specific [address] Urine Protein Urine Ketones Urine Blood Urine WBC Urine Mucus 03/05/18 03/06/18 03/06/18 23:46 04:36 05:35 WBC 17.6 H RBC 3.57 L Hgb 10.0 L Hct 33.6 L MCHC 29.7 L Neutrophils # 15.8 H Lymphocytes # 0.7 L Monocytes # Chloride Carbon Dioxide BUN Glucose Calcium AST Troponin I 0.060 H* Total Protein Albumin Urine Appearance Cloudy H Ur Specific [address] 1.050 H Urine Protein 3+ H Urine Ketones Trace H Urine Blood Small H Urine WBC 6 H Urine Mucus Few H 03/06/18 03/06/18 05:35 05:35 WBC RBC Hgb Hct MCHC Neutrophils # Lymphocytes # Monocytes # Chloride 111 H Carbon Dioxide BUN 20 H Glucose 119 H Calcium 8.1 L AST Troponin I 0.047 H* Total Protein 5.8 L Albumin 2.7 L Urine Appearance Ur Specific [address] Urine Protein Urine Ketones Urine Blood Urine WBC Urine Mucus - Diagnostic Findings Chest x-ray: report reviewed, image reviewed CT scan - chest: report reviewed, image reviewed Additional studies: EKG reviewed Assessment and Plan Plan: Assessment: #1. Acute exacerbation of chronic obstructive pulmonary disease secondary shortness of breath #2. Interstitial lung disease/idiopathic pulmonary fibrosis, not on oxygen currently or any treatment. The possibility of underlying bilateral lower lobe pneumonia on the CT of the abdomen and pelvis is difficult to rule out on the background of chronic interstitial changes, in view of presenting symptoms weakness, shortness of breath, cough and phlegm production #3. Diarrhea, CT abdomen and pelvis showed findings consistent with diverticulitis without abscess #4. Leukocytosis, low-grade fever possibly related to underlying pneumonia #5. Elevated troponins #6. Acute exacerbation of chronic congestive heart failure with systolic dysfunction. Patient had previously documented left ventricular ejection fraction of 20-25% #7. Secondary pulmonary hypertension #8. Moderate to severe mitral regurgitation and moderate to severe tricuspid regurgitation #9. Medical noncompliance related to financial difficulties #10. Chronic kidney disease, stage III #11. History of right nephrectomy #12. History of thyroidectomy for thyroid cancer #13. Chronic and ongoing tobacco dependence, carries a [id number] smoking history #14. Previous episodes of pneumonia Plan: Continue with current antibiotic coverage, we will add IV Solu-Medrol, DuoNeb, Pulmicort and Perforomist. Patient already has been started on IV diuretics. Collect sputum for culture, monitor electrolytes, urine output, weight, we'll repeat chest x-ray in the morning. Echocardiogram has already been ordered and is pending at this time. She is tolerating clear liquid diet. We'll continue to follow I performed a history & physical examination of the patient and discussed their management with my nurse practitioner, Joelle East. I reviewed the nurse practitioner's note and agree with the documented findings and plan of care. Lung sounds are wheezing, scattered rhonchi. The findings and the impression was discussed with the patient. I attest to the documentation by the nurse practitioner. Time with Patient: Greater than 30
[2018-03-06] MEDS: methylPREDNISolone SOD SUCCI 40 MG/ML 1 ML VIAL IV SCH ×2 (17:26→23:44)
[2018-03-06] MEDS: INSULIN ASPART 100 UNIT/ML 1 ML 10 ML VIAL SQ SCH ×2 (17:28→22:23)
[2018-03-06 19:51] LABS: Calcium 8.5 mg/dL (8.4-10.2); Potassium 4.1 mmol/L (3.5-5.1)
[2018-03-06] MEDS: LOSARTAN 25 MG TAB PO SCH (21:01)
[2018-03-06] MEDS: BUDESONIDE 1 MG/2 ML NEBU INHALATION SCH (21:39)
[2018-03-06] MEDS: FORMOTEROL FUMARATE 20 MCG/2 ML NEBU INHALATION SCH (21:39)
[2018-03-06] MEDS: IPRATROPIUM-ALBUTEROL 3 ML NEB INHALATION SCH (21:40)
[2018-03-06 22:32] LABS: Glucose,Whole Blood 139 mg/dL (75-99)
--- NOTE | 2018-03-06 23:07 | CONS ---
CONSULTATION This is a 78-year-old elderly lady who has a known history of a cardiomyopathy. She came into the hospital mainly with complaints of increasing shortness of breath and weight gain. She also had some diarrhea and has diverticulitis with lower abdominal discomfort. She has an elevated white count abdominal pain and has been placed on antibiotics for her diverticulitis. At the time of my evaluation, she is comfortable, but indicates to me that her breathing was quite difficult and she feels better after some IV Lasix. PAST MEDICAL HISTORY: Remarkable for cardiomyopathy and ejection fraction of less than 25%, history of prior pneumonia. She has history of hypertension and hyperlipidemia. No clear-cut evidence if she has CAD or not. The patient is not the best of historians. PAST SURGICAL HISTORY: Includes bowel resection, appendectomy, cholecystectomy. She also has had some some kidney surgery, details are unclear. MEDICATIONS: At home include aspirin, atorvastatin, losartan 25 mg daily, atorvastatin 40 mg daily, aspirin 81 mg daily, Requip. ALLERGIES: SHE IS ALLERGIC TO FLEXERIL AND CODEINE. On reviewing the old record, I noted that she had echocardiogram performed in June of 2016 and at that time, her ejection fraction was about 25% with a mild enlargement of the right ventricle as well with a mild gradient across aortic valve and moderate pulmonary hypertension. EXAMINATION: Blood pressure is 130/70, pulse rate is 70 per minute, regular. HEENT unremarkable. Fundus was not examined by me. NECK: Supple there is JVD of at least 1 cm. No carotid bruit. Heart exam reveals S1, S2 with a short systolic murmur. There are no significant gallops. Lungs reveal bilateral fine basal rales. Lower extremities mild to moderate edema bilaterally. Diminished pulses. Central nervous system grossly within normal limits. EKG revealed sinus mechanism, evidence of LVH by voltage criteria. Nonspecific ST and T-wave changes with poor R-wave progression over precordial leads. Chest x-ray reveals cardiomegaly and also pulmonary vascular congestion type picture. There is a question of pulmonary fibrosis, but looks more like CHF type picture. Cannot exclude underlying pulmonary fibrosis also. Patient does have fine rales bilaterally. IMPRESSION: 1. Exacerbation of systolic heart failure with ejection fraction that was less than 25% in June 2016. 2. Rule out pulmonary fibrosis. 3. History of chronic obstructive pulmonary disease. Patient continues to smoke it appears. 4. Pulmonary hypertension secondary. 5. History of right nephrectomy. Details are unclear. 6. RECOMMENDATIONS: I am recommending that we will continue to diurese with Lasix 40 mg IV push now and 20 mg q.8 hours. Check BMP at 6:00 pm and 6:00 am. We will 1st unload her in view of volume overload type picture and seek pulmonary evaluation as well. I will try and review her old records to see if she has any underlying history of pulmonary fibrosis. I discussed my thoughts in detail with the patient. We will first start her with diuresis and check labs and seek Pulmonary evaluation. Thank you very much for the consult. MMODL / IJN: [id number] /
--- NOTE | 2018-03-07 00:34 | P.HPIM ---
History of Present Illness H&P Date: 03/06/18 Chief Complaint: Shortness of breath, cough and congestion Patient is a 78-year-old female with a known history of COPD, CHF with ejection fraction 20-25%, valvular heart disease with moderate to severe mitral regurgitation and severe tricuspid regurgitation, moderate secondary pulmonary hypertension, hypertension, history of right nephrectomy, CK D stage III, pulmonary fibrosis and other multiple medical problems came to ER with complaints of shortness of breath, cough and congestion and generalized weakness. Patient was also complaining of cough with sputum production. Denied any fever. Patient does have subjective chills otherwise. Symptoms have getting worse for the past few days. Patient is also complaining of watery diarrhea. Denied any hematemesis or melena. Chest x-ray showed cardiomegaly with advanced pulmonary fibrosis. There is decrease in pleural fluid compared to previous exam. CT of the abdomen and pelvis showed some fluid in the pelvis and wall thickening of the sigmoid colon with multiple diverticula. This is consistent with diverticulitis compared to old exam. There is evidence of mild rectal and vaginal prolapse. There is new bilateral lower lobe patchy pneumonia and atelectasis. There is upper and lower abdominal aortic aneurysm increased compared to old exam. Significant cardiomegaly and findings also consistent with acute CHF. BNP 49, 500. Troponin 0.056, 0.060 and 0.047. WBC 20.4 T-max 99.9 on admission. Review of Systems Constitutional: Does have subjective fever and chills . No generalized weakness or weight loss. Abdomen: Patient denied nausea vomiting and diarrhea and abdominal pain. Cardiovascular: Patient denies any chest pain. no palpitations. No leg swelling. Respiratory: Patient does have cough with sputum production brownish and shortness of breath. Neurologic: Patient denied any numbness or tingling headache. Musculoskeletal: Patient denies any complaints of joint swelling or deformity. Skin: Negative Psychiatric: Negative Endocrine: No heat or cold intolerance. No recent weight gain. Genitourinary: No dysuria or hematuria. All other 14 point ROS negative except the above Past Medical History Past Medical History: Cancer, Heart Failure, Hypertension, Pneumonia Additional Past Medical History / Comment(s): "right kidney cancer, kidney was removed" Thyroid cancer. History of Any Multi-Drug Resistant Organisms: None Reported Past Surgical History: Appendectomy, Bowel Resection, Cholecystectomy Additional Past Surgical History / Comment(s): right kidney removal, thyroidectomy Past Anesthesia/Blood Transfusion Reactions: No Reported Reaction Past Psychological History: No Psychological Hx Reported Smoking Status: Former smoker Past Alcohol Use History: None Reported Past Drug Use History: None Reported Additional Drug Use History / Comment(s): 1 cigarette a day - Past Family History Father Family Medical History: COPD, Coronary Artery Disease (CAD) Additional Family Medical History / Comment(s): 1 lung removed Mother Family Medical History: Coronary Artery Disease (CAD) Medications and Allergies Home Medications Medication Instructions Recorded Confirmed Type Aspirin 81 mg PO DAILY 09/11/14 03/05/18 History Atorvastatin [Lipitor] 40 mg PO DAILY #30 tab 07/16/16 03/05/18 Rx Losartan [Cozaar] 25 mg PO HS #30 tab 07/16/16 03/05/18 Rx rOPINIRole HCL [Requip] 0.5 mg PO HS #30 tab 07/16/16 03/05/18 Rx Otc Water Pill (Unknown) 0 mg PO DAILY 03/05/18 03/05/18 History Allergies Allergy/AdvReac Type Severity Reaction Status Date / Time codeine Allergy PARALYZED Verified 03/05/18 19:27 cyclobenzaprine Allergy Unknown Verified 03/05/18 19:27 [From Flexeril] Physical Exam Vitals: Vital Signs Temp Pulse Pulse Resp BP BP Pulse Ox 03/06/18 08:00 98.1 F 74 18 126/86 96 03/06/18 04:00 97.9 F 70 16 113/70 94 L 03/05/18 23:33 78 20 03/05/18 23:14 70 20 130/78 96 03/05/18 22:15 73 20 124/84 97 03/05/18 21:54 78 20 130/78 96 03/05/18 19:23 90 18 119/88 99 03/05/18 16:22 99.9 F H 97 18 126/71 93 L Intake and Output 03/06/18 03/06/18 03/06/18 06:59 14:59 22:59 Intake Total 120 Balance 120 Intake: Oral 120 Other: Voiding Method Bedpan Bedpan # Voids 2 PHYSICAL EXAMINATION: Patient is lying in the bed comfortably, no acute distress, awake alert and oriented.. HEENT: Normocephalic. Neck is supple. Pupils reactive. Nostrils clear. Oral cavity is moist. Ears reveal no drainage. Neck reveals no JVD, carotid bruits, or thyromegaly. CHEST EXAMINATION: Trachea is central. Symmetrical expansion. Bibasilar crackles. Diffuse wheezing and rhonchi present.. CARDIAC: Normal S1, S2 with no gallops. No murmurs ABDOMEN: Soft. Bowel sounds normal. No organomegaly. No abdominal bruits. Extremities: reveal no edema. No clubbing or cyanosis Neurologically awake, alert, oriented x3 with well-coordinated movements. No focal deficits noted Skin: No rash or skin lesions. Psychiatric: Coperative. Nonsuicidal Musculoskeletal: No joint swelling or deformity. Normal range of motion. Results CBC & Chem 7: 03/06/18 05:35 03/06/18 19:13 Labs: Abnormal Lab Results - Last 24 Hours (Table) 03/05/18 03/05/18 03/05/18 Range/Units 16:31 16:31 16:31 WBC 20.4 H (3.8-10.6) k/uL RBC (3.80-5.40) m/uL Hgb 11.2 L (11.4-16.0) gm/dL Hct (34.0-46.0) % MCHC 30.5 L (31.0-37.0) g/dL Neutrophils # 17.9 H (1.3-7.7) k/uL Lymphocytes # (1.0-4.8) k/uL Monocytes # 1.2 H (0-1.0) k/uL Chloride 111 H (98-107) mmol/L Carbon Dioxide 18 L (22-30) mmol/L BUN 20 H (7-17) mg/dL Glucose 134 H (74-99) mg/dL Calcium (8.4-10.2) mg/dL AST 40 H (14-36) U/L Troponin I 0.056 H* (0.000-0.034) ng/mL Total Protein (6.3-8.2) g/dL Albumin 3.4 L (3.5-5.0) g/dL Urine Appearance (Clear) Ur Specific [place] (1.001-1.035) Urine Protein (Negative) Urine Ketones (Negative) Urine Blood (Negative) Urine WBC (0-5) /hpf Urine Mucus (None) /hpf 03/05/18 03/06/18 03/06/18 Range/Units 23:46 04:36 05:35 WBC 17.6 H (3.8-10.6) k/uL RBC 3.57 L (3.80-5.40) m/uL Hgb 10.0 L (11.4-16.0) gm/dL Hct 33.6 L (34.0-46.0) % MCHC 29.7 L (31.0-37.0) g/dL Neutrophils # 15.8 H (1.3-7.7) k/uL Lymphocytes # 0.7 L (1.0-4.8) k/uL Monocytes # (0-1.0) k/uL Chloride (98-107) mmol/L Carbon Dioxide (22-30) mmol/L BUN (7-17) mg/dL Glucose (74-99) mg/dL Calcium (8.4-10.2) mg/dL AST (14-36) U/L Troponin I 0.060 H* (0.000-0.034) ng/mL Total Protein (6.3-8.2) g/dL Albumin (3.5-5.0) g/dL Urine Appearance Cloudy H (Clear) Ur Specific [place] 1.050 H (1.001-1.035) Urine Protein 3+ H (Negative) Urine Ketones Trace H (Negative) Urine Blood Small H (Negative) Urine WBC 6 H (0-5) /hpf Urine Mucus Few H (None) /hpf 03/06/18 03/06/18 Range/Units 05:35 05:35 WBC (3.8-10.6) k/uL RBC (3.80-5.40) m/uL Hgb (11.4-16.0) gm/dL Hct (34.0-46.0) % MCHC (31.0-37.0) g/dL Neutrophils # (1.3-7.7) k/uL Lymphocytes # (1.0-4.8) k/uL Monocytes # (0-1.0) k/uL Chloride 111 H (98-107) mmol/L Carbon Dioxide (22-30) mmol/L BUN 20 H (7-17) mg/dL Glucose 119 H (74-99) mg/dL Calcium 8.1 L (8.4-10.2) mg/dL AST (14-36) U/L Troponin I 0.047 H* (0.000-0.034) ng/mL Total Protein 5.8 L (6.3-8.2) g/dL Albumin 2.7 L (3.5-5.0) g/dL Urine Appearance (Clear) Ur Specific [place] (1.001-1.035) Urine Protein (Negative) Urine Ketones (Negative) Urine Blood (Negative) Urine WBC (0-5) /hpf Urine Mucus (None) /hpf Thrombosis Risk Factor Assmnt - Choose All That Apply Each Risk Factor Represents 3 Points: Age 75 years or older Thrombosis Risk Factor Assessment Total Risk Factor Score: 3 Thrombosis Risk Factor Assessment Level: Moderate Risk Assessment and Plan Assessment: Acute on chronic CHF with systolic and diastolic heart failure. Ejection fraction 20-25% Valvular heart disease with moderate severe mitral regurgitation and moderate to severe tricuspid regurgitation Acute sigmoid colon diverticulitis as per CT abdomen and pelvis Bilateral lower lobe pneumonia and atelectasis. Leukocytosis with WBC count 20.4 and low-grade temperature 99.9 on admission Acute COPD exacerbation Interstitial lung disease/pulmonary fibrosis Elevated troponin level likely demand mismatch Secondary moderate pulmonary hypertension Chronic kidney disease stage III hypertension History of right nephrectomy History of thyroidectomy due to thyroid cancer Ongoing nicotine addiction Plan: Patient was given a dose of IV Lasix. Patient will be continued on IV diuresis with Lasix 20 mg every 8 hours. Continue the antibiotics in the form of Levaquin and Flagyl. IV steroids and breathing treatments. Pulmonary and cardiology is following. 2-D echocardiogram was ordered. Follow- up culture reports. Further recommendations based on the clinical course. Prognosis is guarded. Smoking cessation has been counseled extensively. Time with Patient: Greater than 30
[2018-03-07] MEDS: metroNIDAZOLE-NS PMX 500 MG in SALINE 1 100ML.BAG IVPB SCH ×4 (04:50→21:29)
[2018-03-07] MEDS: FUROSEMIDE 10 MG/ML 2 ML VIAL IV SCH (04:50)
[2018-03-07 06:23] LABS: Basophils % (A) 0 %; Eosinophils % (A) 0 %; HCT 42.2 % (34.0-46.0); HGB 12.5 gm/dL (11.4-16.0); Hypochromasia Marked; Lymphocytes # (A) 0.4 k/uL (1.0-4.8); Lymphocytes % (A) 3 %; MCH 27.7 pg (25.0-35.0); MCHC 29.6 g/dL (31.0-37.0); MCV 93.7 fL (80.0-100.0); Mean Platelet Volume 7.4; Monocytes # (A) 0.4 k/uL (0-1.0); Monocytes % (A) 2 %; Neutrophils # (A) 14.7 k/uL (1.3-7.7); Neutrophils % (A) 95 %; Platelet Count 271 k/uL (150-450); RBC 4.51 m/uL (3.80-5.40); RDW 15.3 % (11.5-15.5); WBC 15.5 k/uL (3.8-10.6)
[2018-03-07 06:25] LABS: Glucose,Whole Blood 178 mg/dL (75-99)
[2018-03-07 06:47] LABS: Calcium 8.6 mg/dL (8.4-10.2)
[2018-03-07] MEDS: INSULIN ASPART 100 UNIT/ML 1 ML 10 ML VIAL SQ SCH ×4 (06:59→21:26)
[2018-03-07] MEDS: BUDESONIDE 1 MG/2 ML NEBU INHALATION SCH ×2 (08:33→21:14)
[2018-03-07] MEDS: IPRATROPIUM-ALBUTEROL 3 ML NEB INHALATION SCH ×4 (08:33→21:09)
[2018-03-07] MEDS: FORMOTEROL FUMARATE 20 MCG/2 ML NEBU INHALATION SCH ×2 (08:33→21:10)
[2018-03-07] MEDS ORDERED: LEVOFLOXACIN 500MG-D5W PMX 500 MG in DEXTROSE/WATER 1 100ML.BAG IVPB SCH (09:00)
[2018-03-07] MEDS: ACETAMINOPHEN TAB 325 MG TAB PO PRN (09:44)
[2018-03-07] MEDS: methylPREDNISolone SOD SUCCI 40 MG/ML 1 ML VIAL IV SCH ×3 (09:45→23:00)
[2018-03-07] MEDS: ASPIRIN 81 MG PO SCH (09:45)
[2018-03-07] MEDS: ATORVASTATIN 40 MG TAB PO SCH (09:45)
--- NOTE | 2018-03-07 11:25 | ECHOF ---
Referral Reason:heart failure MEASUREMENTS -------- HEIGHT: 152.4 cm WEIGHT: 36.3 kg BP: RVIDd: 3.8 cm (< 3.3) IVSd: 1.4 cm (0.6 - 1.1) LVIDd: 4.9 cm (3.9 - 5.3) LVPWd: 1.3 cm (0.6 - 1.1) IVSs: 2.0 cm LVIDs: 4.4 cm LVPWs: 1.3 cm LA Diam: 6.1 cm (2.7 - 3.8) LAESV Index (A-L): 121.57 ml/m Ao Diam: 3.2 cm (2.0 - 3.7) AV Cusp: 1.3 cm (1.5 - 2.6) EPSS: 1.0 cm MV E Jun: 0.94 m/s MV DecT: 192 ms MV A Jun: 1.31 m/s MV E/A Ratio: 0.72 RAP: 15.00 mmHg RVSP: 81.22 mmHg MV EF SLOPE: 32.08 mm/s (70 - 150) MV EXCURSION: 1.10 cm (> 18.000) FINDINGS -------- Sinus rhythm. This was a technically good study. The left ventricular size is normal. There is moderate concentric left ventricular hypertrophy. O verall left ventricular systolic function is moderate-severely impaired with, an EF between 30 - 35 % . Basal inferior LV wall motion is akinetic. Basal inferoseptal LV wall motion is akinetic. M id inferior LV wall motion is akinetic. Mid inferoseptal LV wall motion is akinetic. Apical inf erior LV wall motion is akinetic. The right ventricle is moderately enlarged. LA is severely dilated >40 ml/m2 The right atrial size is normal. There is mild aortic valve sclerosis. Mild mitral annular calcification present. Hlzrunqe-qx-svpxdy mitral regurgitation is present. Moderate to severe tricuspid regurgitation present. There is severe pulmonary hypertension. The r ight ventricular systolic pressure, as measured by Doppler, is 81.22mmHg. There is no pulmonic regurgitation present. The aortic root size is normal. There is no pericardial effusion. CONCLUSIONS -------- 1. Sinus rhythm. 2. The left ventricular size is normal. 3. There is moderate concentric left ventricular hypertrophy. 4. Overall left ventricular systolic function is moderate-severely impaired with, an EF between 30 - 35 %. 5. Basal inferior LV wall motion is akinetic. 6. Basal inferoseptal LV wall motion is akinetic. 7. Mid inferior LV wall motion is akinetic. 8. Mid inferoseptal LV wall motion is akinetic. 9. Apical inferior LV wall motion is akinetic. 10. The right ventricle is moderately enlarged. 11. LA is severely dilated >40 ml/m2 12. There is mild aortic valve sclerosis. 13. Mild mitral annular calcification present. 14. Yguotwjk-nn-tkcbxt mitral regurgitation is present. 15. Moderate to severe tricuspid regurgitation present. 16. There is severe pulmonary hypertension. 17. There is no pulmonic regurgitation present. 18. The aortic root size is normal. 19. There is no pericardial effusion. DIRECTOR OF HUMAN RESOURCES: Janny Garcia RDCS
--- NOTE | 2018-03-07 11:38 | XR ---
EXAMINATION TYPE: XR chest 2V DATE OF EXAM: 03/07/2018 COMPARISON: Prior chest x-ray 03/05/2018 HISTORY: Shortness of breath TECHNIQUE: Frontal and lateral views of the chest are obtained. FINDINGS: Findings are similar to prior exam. Aorta is dense and enlarged. IMPRESSION: Interstitial lung disease. Cardiomegaly. Postop changes. Aortic aneurysm measures
[2018-03-07 12:04] LABS: Glucose,Whole Blood 253 mg/dL (75-99)
--- NOTE | 2018-03-07 12:16 | P.CONS ---
History of Present Illness - Reason for Consult Consult date: 03/07/18 Diverticulitis Requesting physician: Abram Alatorre - Chief Complaint Abdominal pain diarrhea shortness of breath - History of Present Illness 70-year-old with a history of colonic diverticulosis, diverticulitis admitted with acute abdominal pain nonbloody diarrhea shortness of breath exacerbation of heart failure. Denies fever chills changes in diet. CT of the abdomen reported multiple diverticula in the colon with some wall thickening around the midsigmoid and minimal fluid insistent with acute diverticulitis, no drainable abscess. White count 20.4 presently 15.5. Hemoglobin 12.5. Platelet 271. INR 1.1. Influenza not detected. Reports improvement in abdominal pain. Tolerating clear liquids requesting advancement. Passing flatus. No diarrhea. She states her last colonoscopy was a few years ago performed at [facility] however upon review of medical records endoscopic report could not be found. Review of Systems Constitutional: Denies fever, chills, sweats, weight gain, or loss. HEENT: Negative for migraines, blurred vision or loss, earaches, drainage, tinnitus, oral mucosal lesions, dysphagia, or odynophagia. CARDIAC: Negative for chest pain, arrhythmias, or palpitation. RESPIRATORY: Minute with dyspnea denies, hemoptysis, cough, or sputum production. GI: See HPI for pertinent findings. : Negative for hematuria, urgency, frequency, polyuria, or dysuria. GYNc: Negative vaginal discharge. MUSCULOSKELETAL: Negative for muscle aches, swelling, arthritis, and arthralgias. NEUROLOGIC: Negative for stroke or TIA. ENDOCRINE: Negative for thyroid problems. SKIN: Negative for rash or itching. PSYCHIATRIC: Negative history for depression and anxiety Past Medical History Past Medical History: Cancer, Heart Failure, Hypertension, Pneumonia Additional Past Medical History / Comment(s): "right kidney cancer, kidney was removed" Thyroid cancer. History of Any Multi-Drug Resistant Organisms: None Reported Past Surgical History: Appendectomy, Bowel Resection, Cholecystectomy Additional Past Surgical History / Comment(s): right kidney removal, thyroidectomy Past Anesthesia/Blood Transfusion Reactions: No Reported Reaction Past Psychological History: No Psychological Hx Reported Smoking Status: Former smoker Past Alcohol Use History: None Reported Past Drug Use History: None Reported Additional Drug Use History / Comment(s): 1 cigarette a day - Past Family History Father Family Medical History: COPD, Coronary Artery Disease (CAD) Additional Family Medical History / Comment(s): 1 lung removed Mother Family Medical History: Coronary Artery Disease (CAD) Medications and Allergies Home Medications Medication Instructions Recorded Confirmed Type Aspirin 81 mg PO DAILY 09/11/14 03/05/18 History Atorvastatin [Lipitor] 40 mg PO DAILY #30 tab 07/16/16 03/05/18 Rx Losartan [Cozaar] 25 mg PO HS #30 tab 07/16/16 03/05/18 Rx rOPINIRole HCL [Requip] 0.5 mg PO HS #30 tab 07/16/16 03/05/18 Rx Otc Water Pill (Unknown) 0 mg PO DAILY 03/05/18 03/05/18 History Allergies Allergy/AdvReac Type Severity Reaction Status Date / Time codeine Allergy PARALYZED Verified 03/05/18 19:27 cyclobenzaprine Allergy Unknown Verified 03/05/18 19:27 [From Flexeril] Physical Exam Vitals: Vital Signs Temp Pulse Pulse Pulse Resp BP Pulse Ox 03/07/18 09:30 97.6 F 80 20 121/77 93 L 03/07/18 08:42 70 03/07/18 08:33 74 03/07/18 04:34 78 128/72 97 03/06/18 23:43 97.7 F 75 13 111/66 94 L 03/06/18 21:59 76 03/06/18 21:55 76 03/06/18 21:40 76 95 03/06/18 20:59 99.2 F 78 121/68 94 L 03/06/18 16:00 99.2 F 86 16 131/78 95 Intake and Output 03/06/18 03/07/18 03/07/18 22:59 06:59 14:59 Intake Total 100 Output Total 350 200 Balance 100 -350 -200 Intake: Intake, IV Titration 100 Amount metroNIDAZOLE-NS PMX 500 100 mg In Saline 1 100ml.bag @ 100 mls/hr IVPB Q6H [facility] Rx#:[id number] Output: Urine 350 200 Other: Voiding Method Toilet Toilet Toilet # Voids 1 Weight 45.3 kg General appearance: The patient is alert, oriented, in no acute distress. HET: Head is normocephalic and atraumatic. Pupils are equal and reactive. Oropharynx is clear without lesions. Neck: Supple without lymphadenopathy. Trachea midline. Heart: S1 S2. Regular rate and rhythm. Lungs: No crackles or wheezes are heard. Abdomen: Soft, nontender, nondistended with bowel sounds. No peritoneal signs. No palpable organomegaly or masses. Extremities: Normal skin color and turgor. No cyanosis, rash, ulceration, clubbing, or edema. Radial and pedal pulses are 2/4 bilaterally. Neurological: No focal deficits. Strength and sensation are grossly intact. Results CBC & Chem 7: 03/07/18 05:36 03/07/18 05:36 Labs: Abnormal Lab Results - Last 24 Hours (Table) 03/06/18 03/06/18 03/07/18 Range/Units 19:13 22:20 05:36 WBC (3.8-10.6) k/uL MCHC (31.0-37.0) g/dL Neutrophils # (1.3-7.7) k/uL Lymphocytes # (1.0-4.8) k/uL BUN 22 H 23 H (7-17) mg/dL Creatinine 1.08 H (0.52-1.04) mg/dL Glucose 110 H 180 H (74-99) mg/dL POC Glucose (mg/dL) 139 H (75-99) mg/dL 03/07/18 03/07/18 03/07/18 Range/Units 05:36 06:23 11:58 WBC 15.5 H (3.8-10.6) k/uL MCHC 29.6 L (31.0-37.0) g/dL Neutrophils # 14.7 H (1.3-7.7) k/uL Lymphocytes # 0.4 L (1.0-4.8) k/uL BUN (7-17) mg/dL Creatinine (0.52-1.04) mg/dL Glucose (74-99) mg/dL POC Glucose (mg/dL) 178 H 253 H (75-99) mg/dL Microbiology - Last 24 Hours (Table) 03/05/18 18:20 Blood Culture - Preliminary Blood No Growth after [address] scan - abdomen: report reviewed (Dr. Gillis) Assessment and Plan (1) Diverticulitis Narrative/Plan: 78-year-old female admitted with acute sigmoid diverticulitis abdominal pain diarrhea shortness of breath with exacerbation of heart failure. Current Visit: Yes Status: Acute Code(s): K57.92 - DVTRCLI OF INTEST, PART UNSP, W/O PERF OR ABSCESS W/O BLEED SNOMED Code(s): 215662392 (2) Congestive heart failure Current Visit: Yes Status: Acute Code(s): I50.9 - HEART FAILURE, UNSPECIFIED SNOMED Code(s): 45940811 Plan: 1. presently without abdominal pain afebrile. Tolerating clear liquids. Will advance to full liquid. Continue with antibiotics. Check GI office for endoscopic records if patient has not had a colonoscopy in less than 3 years was advised outpatient colonoscopy in 4-6 weeks after discharge. We'll continue to follow. Thank you for this kind referral and the opportunity to participate in the care of your patient. This consultation was discussed with Dr. Gillis. The impression and plan of care have been directed as dictated.
--- NOTE | 2018-03-07 13:51 | P.PN ---
Subjective Progress Note Date: 03/07/18 Principal diagnosis: Exacerbation of chronic obstructive pulmonary disease, ILD, pulmonary fibrosis , acute exacerbation of CHF This is a 78-year-old white female patient who presented to the emergency department on 03/05/2018 at 1600 for evaluation of worsening shortness of breath , severe weakness, cough with production of brownish colored phlegm, chills, diarrhea and thrush in her mouth. The shortness of breath has been increasingly worse for last few days, patient has been quite dyspneic even walking to the bathroom. Patient has been incontinent of watery diarrhea, patient denied any visible blood in it, no melena, no hematochezia. Patient reports a sore throat, she states she thinks she has thrush in her mouth. Patient had some chest discomfort across her anterior chest, without radiation, but associated with some mild nausea, no diaphoresis. She stated it lasted about 15 minutes, currently resolved. Patient has a medical history of COPD, not oxygen dependent at baseline, previous episodes of pneumonia, chronic congestive heart failure with systolic dysfunction and previously documented ejection fraction of 20-25%, valvular heart disease moderate to severe mitral regurgitation, moderate secondary pulmonary hypertension and moderate to severe tricuspid regurg. Patient has not been seen at this hospital in over a year, patient had not been to a doctor and has not refilled her prescription because she has been unable to follow with a doctor related to medical bills. Other history includes nephrectomy related to renal carcinoma, chronic kidney disease stage III, hypertension, thyroidectomy for history of thyroid cancer, chronic nicotine dependence with over 44 [id number] smoking history, bilateral idiopathic pulmonary fibrosis previously noted on chest x-rays and CT scans. Patient had a low-grade fever on admission, has been afebrile since. Asked x- ray showed cardiomegaly and advanced pulmonary fibrosis, possibility of mild heart failure. Abdomen and pelvis CT showed wall thickening of the sigmoid colon with multiple diverticula, system with diverticulitis. No drainable abscess was identified. There was evidence for mild rectal and vaginal prolapse. She has history bilateral lower lobe patchy infiltrates that could relate to pneumonia Or atelectasis. Labs showed WBC of 20.4, hemoglobin of 11.2 , INR was 1.1, sodium is 141, potassium is 4.5, chloride was 111, CO2 was 18, BUN is 20, and creatinine is 1.03, proBNP was 49,500; troponins were elevated at 0.056, 0.060, and 0.047. Patient was started on IV diuretics, empiric antibiotics with Levaquin and Flagyl, she is quite congested and wheezy and dyspneic with conversation. We're seeing this patient in consultation for acute exacerbation of COPD, underlying pneumonia is difficult to exclude on the background of interstitial lung disease changes present on the CT chest. On 03/07/2018 patient seen in follow-up on selective care unit. She is awake and alert, in no acute distress, she states her breathing is much easier, she is less wheezy and congested, diarrhea has resolved, she is tolerating clear liquid diet. Denies any abdominal pain, denies any fever or chills. Today's chest x-ray has been reviewed by Dr. Shaffer, and shows changes consistent with interstitial lung disease, and cardiomegaly. She remains on IV diuretics, empiric antibiotics, and we added IV steroids and nebulized bronchodilators yesterday. Today's lab work has been reviewed, cytosis is trending down, WBCs 15.5, hemoglobin is 12.5, electrolytes are within normal limits, BUN is 23, and creatinine is slightly on the rise at 1.08. Influenza Screen was negative. No fever no chills, blood culture showed no growth at the 24-hour michele Objective - Vital Signs Vital signs: Vital Signs Temp 97.6 F 03/07/18 09:30 Pulse 70 03/07/18 12:36 Resp 18 03/07/18 12:00 BP 127/62 03/07/18 12:00 Pulse Ox 98 03/07/18 12:00 Intake & Output 03/06/18 03/07/18 03/07/18 18:59 06:59 18:59 Intake Total 100 Output Total 350 200 Balance -250 -200 Weight 45.3 kg Intake: Intake, IV Titration 100 Amount metroNIDAZOLE-NS PMX 500 100 mg In Saline 1 100ml.bag @ 100 mls/hr IVPB Q6H [facility] Rx#:[id number] Output: Urine 350 200 Other: Voiding Method Bedpan Toilet Toilet # Voids 1 - Exam GENERAL EXAM: Alert, pleasant, 78-year-old white female, sitting up in bed, covered with blankets, no apparent distress HEAD: Normocephalic/atraumatic. EYES: Normal reaction of pupils, equal size. Conjunctiva pink, sclera white. NOSE: Clear with pink turbinates. THROAT: No erythema or exudates. NECK: No masses, no JVD, no thyroid enlargement, no adenopathy. CHEST: No chest wall deformity. Symmetrical expansion. LUNGS: Lung sounds are positive for diffuse bibasilar crackles CVS: Regular rate and rhythm, normal S1 and S2, no gallops, no murmurs, no rubs ABDOMEN: Soft, nontender. No hepatosplenomegaly, normal bowel sounds, no guarding or rigidity. EXTREMITIES: No clubbing, no edema, no cyanosis, 2+ pulses and upper and lower extremities. MUSCULOSKELETAL: Muscle strength and tone normal. SPINE: No scoliosis or deformity SKIN: No rashes CENTRAL NERVOUS SYSTEM: Alert and oriented -3. No focal deficits, tone is normal in all 4 extremities. PSYCHIATRIC: Alert and oriented -3. Appropriate affect. Intact judgment and insight. - Labs CBC & Chem 7: 03/07/18 05:36 03/07/18 05:36 Labs: Abnormal Lab Results - Last 24 Hours (Table) 03/06/18 03/06/18 03/07/18 Range/Units 19:13 22:20 05:36 WBC (3.8-10.6) k/uL MCHC (31.0-37.0) g/dL Neutrophils # (1.3-7.7) k/uL Lymphocytes # (1.0-4.8) k/uL BUN 22 H 23 H (7-17) mg/dL Creatinine 1.08 H (0.52-1.04) mg/dL Glucose 110 H 180 H (74-99) mg/dL POC Glucose (mg/dL) 139 H (75-99) mg/dL 03/07/18 03/07/18 03/07/18 Range/Units 05:36 06:23 11:58 WBC 15.5 H (3.8-10.6) k/uL MCHC 29.6 L (31.0-37.0) g/dL Neutrophils # 14.7 H (1.3-7.7) k/uL Lymphocytes # 0.4 L (1.0-4.8) k/uL BUN (7-17) mg/dL Creatinine (0.52-1.04) mg/dL Glucose (74-99) mg/dL POC Glucose (mg/dL) 178 H 253 H (75-99) mg/dL Microbiology - Last 24 Hours (Table) 03/05/18 18:20 Blood Culture - Preliminary Blood No Growth after 24 hours Assessment and Plan Plan: Assessment: #1. Acute exacerbation of chronic obstructive pulmonary disease secondary shortness of breath #2. Interstitial lung disease/idiopathic pulmonary fibrosis, not on oxygen currently or any treatment. The possibility of underlying bilateral lower lobe pneumonia on the CT of the abdomen and pelvis is difficult to rule out on the background of chronic interstitial changes, in view of presenting symptoms weakness, shortness of breath, cough and phlegm production #3. Diarrhea, CT abdomen and pelvis showed findings consistent with diverticulitis without abscess #4. Leukocytosis, low-grade fever possibly related to underlying pneumonia #5. Elevated troponins #6. Acute exacerbation of chronic congestive heart failure with systolic dysfunction. Patient had previously documented left ventricular ejection fraction of 20-25% #7. Secondary pulmonary hypertension #8. Moderate to severe mitral regurgitation and moderate to severe tricuspid regurgitation #9. Medical noncompliance related to financial difficulties #10. Chronic kidney disease, stage III #11. History of right nephrectomy #12. History of thyroidectomy for thyroid cancer #13. Chronic and ongoing tobacco dependence, carries a [id number] smoking history #14. Previous episodes of pneumonia Plan: Continue current medical treatment, IV steroids, nebulized bronchodilators, Lasix, and antibiotics. Her diarrhea has resolved, she is breathing easier, no fever or chills, vital signs are stable. We will obtain a dedicated CT of the chest with high resolution. We'll continue to follow I performed a history & physical examination of the patient and discussed their management with my nurse practitioner, Joelle East. I reviewed the nurse practitioner's note and agree with the documented findings and plan of care. Lung sounds are bibasilar crackles. The findings and the impression was discussed with the patient. I attest to the documentation by the nurse practitioner. Time with Patient: Less than 30
--- NOTE | 2018-03-07 15:18 | CT ---
EXAMINATION TYPE: CT chest wo con DATE OF EXAM: 03/07/2018 COMPARISON: NONE HISTORY: Interstitial lung disease. CT DLP: 315.7 mGycm. Automated Exposure Control for Dose Reduction was Utilized. TECHNIQUE: High-resolution CT scan of the thorax is performed without IV contrast. There is limited evaluation for pulmonary nodule given the high-resolution algorithm with noncontiguous slices. FINDINGS: LUNGS: There is peripheral predominant honeycombing throughout the lungs most pronounced at the lung bases. Scattered pulmonary blebs are seen with background moderate centrilobular emphysema. There is a moderate left pleural effusion and small right pleural effusion with associated dependent atelectas is shifting positions in supine and prone imaging. Findings are similar to the prior of 07/13/2016. MEDIASTINUM: Lack of IV contrast is noted to limit evaluation for mediastinal and especially hilar ad enopathy. There are no definitive greater than 1 cm hilar or mediastinal lymph nodes. There is enlarg ement of the main pulmonary artery measuring 3.5 cm. Ascending thoracic aorta is within normal limits . Heart is enlarged. Descending thoracic aorta appears aneurysmal measuring 3.8 cm, somewhat exaggera shima by tortuosity. Moderate coronary artery calcifications are evident. OTHER: Lateral to the right thyroid gland bulbous density appears to represent the internal jugular v ein although noncontrast exam and noncontiguous slices make evaluation difficult. Moderate multilevel degenerative changes of the thoracic spine are noted. Postsurgical changes of the right upper quadra nt are noted. IMPRESSION: 1. Pulmonary fibrosis an interstitial lung disease. Consideration should be given to UIP and fibrotic type NSIP. There does not appear to be significant progression from the prior of 07/13/2016. 2. Moderate centrilobular emphysema with scattered blebs. 4. Cardiomegaly, moderate three-vessel coronary artery calcifications, moderate left pleural effusion , small right pleural effusion and associated compressive atelectasis suggestive of congestive heart failure. 5. Aneurysmal dilatation of the descending thoracic aorta.
[2018-03-07] MEDS: INSULIN DETEMIR 100 UNIT/ML 10 ML VIAL SQ SCH (16:06)
[2018-03-07 16:42] LABS: Glucose,Whole Blood 102 mg/dL (75-99)
--- NOTE | 2018-03-07 21:17 | PN ---
PROGRESS NOTE This is a 78-year-old lady who was admitted to the hospital with with a colitis type picture and also had some volume overload and was in congestive heart failure. With diuresis her breathing is better. She complains of feeling tired and weak. Denies any chest discomfort. Her vitals are stable. She is resting comfortably. Blood pressure is 130/70, pulse rate is about 74 per minute. There is JVD of 1 cm. No carotid bruit. S1-S2 heard normally. Short systolic murmur noted. Lungs reveal improved air entry. Abdomen is soft. It is not tender today. Lower extremities reveal improved edema. I will switch her to oral Lasix at 40 mg every morning. She also has diabetes mellitus. She is on steroids and this may affect her blood sugar control as well. I am recommending that we continue her current medical regimen, but switch her to oral Lasix and laboratory data suggests that her potassium level was good at 4.0. Renal function is decent. Her troponin profile is flat and does not suggest any myocardial injury. From a cardiac standpoint no aggressive intervention is necessary. Her echocardiogram performed yesterday revealed an ejection fraction in the range of 30-35 percent with inferior wall akinesia and right-sided pressures are quite elevated. She has ischemic cardiomyopathy. We will therefore continue her current medical regimen. I explained to the patient that her ejection fraction is low and prognosis overall is poor, but we will pursue medical therapy and once her diverticulitis is clear, we will make further recommendations. She is currently on Cozaar and I will initiate her on a small dose of metoprolol tartrate 12.5 mg b.i.d. and see how she does. She also has a combination of pulmonary fibrosis in addition to her LV dysfunction. She had a significantly elevated proBNP. We will therefore switch her to oral Lasix, add a small dose of beta blockers. Continue losartan and see how she does. A CT scan with high- resolution is being also ordered to verify the diagnosis of pulmonary fibrosis. MMODL / IJN: [id number] /
[2018-03-07 21:19] LABS: Glucose,Whole Blood 159 mg/dL (75-99)
[2018-03-07] MEDS: LOSARTAN 25 MG TAB PO SCH (21:26)
[2018-03-07] MEDS: METOPROLOL TARTRATE 12.5 MG TAB PO SCH (21:26)
--- NOTE | 2018-03-08 02:36 | P.PN ---
Subjective Progress Note Date: 03/07/18 Principal diagnosis: Pulmonary fibrosis Acute COPD exacerbation Colitis CHF exacerbation with systolic dysfunction. Patient is a 78-year-old female with a known history of COPD, CHF with ejection fraction 20-25%, valvular heart disease with moderate to severe mitral regurgitation and severe tricuspid regurgitation, moderate secondary pulmonary hypertension, hypertension, history of right nephrectomy, CK D stage III, pulmonary fibrosis and other multiple medical problems came to ER with complaints of shortness of breath, cough and congestion and generalized weakness. Patient was also complaining of cough with sputum production. Denied any fever. Patient does have subjective chills otherwise. Symptoms have getting worse for the past few days. Patient is also complaining of watery diarrhea. Denied any hematemesis or melena. Chest x-ray showed cardiomegaly with advanced pulmonary fibrosis. There is decrease in pleural fluid compared to previous exam. CT of the abdomen and pelvis showed some fluid in the pelvis and wall thickening of the sigmoid colon with multiple diverticula. This is consistent with diverticulitis compared to old exam. There is evidence of mild rectal and vaginal prolapse. There is new bilateral lower lobe patchy pneumonia and atelectasis. There is upper and lower abdominal aortic aneurysm increased compared to old exam. Significant cardiomegaly and findings also consistent with acute CHF. BNP 49, 500. Troponin 0.056, 0.060 and 0.047. WBC 20.4 T-max 99.9 on admission. 03/07/2018 Patient's abdominal pain is much better now. Tolerating liquid diet and is advanced to full liquid diet now. Otherwise patient is being continued on antibiotics and steroids and breathing treatments. Pulmonary and cardiology and GI is following. Patient has been afebrile. No nausea no vomiting. Clinically is improving compared to yesterday. Leukocytosis is improving. Patient had high-resolution CT of the chest was done to further diagnose pulmonary fibrosis. Cultures have been negative. IV Lasix has been discontinued and changed to by mouth. Ejection fraction 30-35 %. No other acute overnight issues. All other review of systems negative except the above. Current medications reviewed. Objective - Vital Signs Vital signs: Vital Signs Temp 97.6 F 03/07/18 16:00 Pulse 86 03/07/18 21:34 Resp 20 03/07/18 16:00 BP 131/75 03/07/18 16:00 Pulse Ox 97 03/07/18 21:10 Intake & Output 03/07/18 03/07/18 03/08/18 06:59 18:59 06:59 Intake Total 100 957 Output Total 350 200 Balance -250 757 Weight 45.3 kg Intake: Intake, IV Titration 100 Amount metroNIDAZOLE-NS PMX 500 100 mg In Saline 1 100ml.bag @ 100 mls/hr IVPB Q6H MARY Rx#:[id number] Oral 957 Output: Urine 350 200 Other: Voiding Method Toilet Toilet # Voids 1 1 1 - Exam Patient is lying in the bed comfortably, no acute distress, awake alert and oriented.. HEENT: Normocephalic. Neck is supple. Pupils reactive. Nostrils clear. Oral cavity is moist. Ears reveal no drainage. Neck reveals no JVD, carotid bruits, or thyromegaly. CHEST EXAMINATION: Trachea is central. Symmetrical expansion. Bibasilar crackles and rhonchi. No wheezing.. CARDIAC: Normal S1, S2 with no gallops. No murmurs ABDOMEN: Soft. Bowel sounds normal. No organomegaly. No abdominal bruits. Extremities: reveal no edema. No clubbing or cyanosis Neurologically awake, alert, oriented x3 with well-coordinated movements. No focal deficits noted Skin: No rash or skin lesions. Psychiatric: Coperative. Nonsuicidal Musculoskeletal: No joint swelling or deformity. Normal range of motion. - Labs CBC & Chem 7: 03/07/18 05:36 03/07/18 05:36 Labs: Abnormal Lab Results - Last 24 Hours (Table) 03/07/18 03/07/18 03/07/18 Range/Units 05:36 05:36 06:23 WBC 15.5 H (3.8-10.6) k/uL MCHC 29.6 L (31.0-37.0) g/dL Neutrophils # 14.7 H (1.3-7.7) k/uL Lymphocytes # 0.4 L (1.0-4.8) k/uL BUN 23 H (7-17) mg/dL Creatinine 1.08 H (0.52-1.04) mg/dL Glucose 180 H (74-99) mg/dL POC Glucose (mg/dL) 178 H (75-99) mg/dL 03/07/18 03/07/1818 Range/Units 11:58 16:40 21:17 WBC (3.8-10.6) k/uL MCHC (31.0-37.0) g/dL Neutrophils # (1.3-7.7) k/uL Lymphocytes # (1.0-4.8) k/uL BUN (7-17) mg/dL Creatinine (0.52-1.04) mg/dL Glucose (74-99) mg/dL POC Glucose (mg/dL) 253 H 102 H 159 H (75-99) mg/dL Microbiology - Last 24 Hours (Table) 03/05/18 18:20 Blood Culture - Preliminary Blood No Growth after 48 hours Assessment and Plan Assessment: Acute sigmoid colon diverticulitis as per CT abdomen and pelvis Bilateral lower lobe pneumonia and atelectasis. Leukocytosis with WBC count 20.4 and low-grade temperature 99.9 on admission Acute COPD exacerbation Interstitial lung disease/pulmonary fibrosis Acute on chronic CHF with systolic and diastolic heart failure. Ejection fraction 20-25% Valvular heart disease with moderate severe mitral regurgitation and moderate to severe tricuspid regurgitation Elevated troponin level likely demand mismatch Secondary moderate pulmonary hypertension Chronic kidney disease stage III hypertension History of right nephrectomy History of thyroidectomy due to thyroid cancer Ongoing nicotine addiction Plan: Patient was given a dose of IV Lasix. Patient was continued on IV diuresis with Lasix 20 mg every 8 hours. Changed to by mouth daily. Continue the antibiotics in the form of Levaquin and Flagyl. IV steroids and breathing treatments. CT chest was done. Pulmonary and cardiology is following. 2-D echocardiogram showed ejection fraction 30-35%. Follow-up culture reports. Further recommendations based on the clinical course. Prognosis is guarded. Smoking cessation has been counseled extensively. Time with Patient: Greater than 30
[2018-03-08] MEDS: metroNIDAZOLE-NS PMX 500 MG in SALINE 1 100ML.BAG IVPB SCH ×3 (03:19→16:31)
[2018-03-08 06:16] LABS: Glucose,Whole Blood 187 mg/dL (75-99)
[2018-03-08] MEDS: INSULIN ASPART 100 UNIT/ML 1 ML 10 ML VIAL SQ SCH ×4 (06:34→20:38)
[2018-03-08] MEDS: FORMOTEROL FUMARATE 20 MCG/2 ML NEBU INHALATION SCH ×2 (06:57→20:29)
[2018-03-08] MEDS: BUDESONIDE 1 MG/2 ML NEBU INHALATION SCH ×2 (06:57→20:29)
[2018-03-08] MEDS: IPRATROPIUM-ALBUTEROL 3 ML NEB INHALATION SCH ×4 (06:57→20:30)
[2018-03-08] MEDS: METOPROLOL TARTRATE 12.5 MG TAB PO SCH ×2 (07:58→22:21)
[2018-03-08] MEDS: ASPIRIN 81 MG PO SCH (07:58)
[2018-03-08] MEDS: ATORVASTATIN 40 MG TAB PO SCH (07:58)
[2018-03-08] MEDS: FUROSEMIDE 40 MG TAB PO SCH (07:58)
[2018-03-08] MEDS: methylPREDNISolone SOD SUCCI 40 MG/ML 1 ML VIAL IV SCH ×3 (08:00→23:22)
[2018-03-08] MEDS: INSULIN DETEMIR 100 UNIT/ML 10 ML VIAL SQ SCH (09:44)
[2018-03-08 11:43] LABS: Glucose,Whole Blood 150 mg/dL (75-99)
[2018-03-08 12:01] LABS: Calcium 8.6 mg/dL (8.4-10.2); Potassium 4.3 mmol/L (3.5-5.1)
--- NOTE | 2018-03-08 12:28 | P.PN ---
Subjective Progress Note Date: 03/08/18 Principal diagnosis: Acute diverticulitis Feels well. Denies abdominal pain. Reports cough. Tolerating full liquids. Passing gas no bowel movements. White count decreased yesterday to 15.5. Objective - Vital Signs Vital signs: Vital Signs Temp 97.9 F 03/08/18 08:00 Pulse 100 03/08/18 12:08 Resp 20 03/08/18 12:09 BP 136/72 03/08/18 12:08 Pulse Ox 94 L 03/08/18 12:08 Intake & Output 03/07/18 03/08/18 03/08/18 18:59 06:59 18:59 Intake Total 957 720 Output Total 200 Balance 757 720 Weight 45.3 kg 46.1 kg Intake: Oral 957 720 Output: Urine 200 Other: Voiding Method Toilet Toilet # Voids 1 2 - Exam General appearance: The patient is alert, oriented, in no acute distress. HET: Head is normocephalic and atraumatic. Pupils are equal and reactive. Oropharynx is clear without lesions. Neck: Supple without lymphadenopathy. Trachea midline. Heart: S1 S2. Regular rate and rhythm. Lungs: No crackles or wheezes are heard. Abdomen: Soft, nontender, nondistended with bowel sounds. No peritoneal signs. No palpable organomegaly or masses. Extremities: Normal skin color and turgor. No cyanosis, rash, ulceration, clubbing, or edema. Radial and pedal pulses are 2/4 bilaterally. Neurological: No focal deficits. Strength and sensation are grossly intact. - Labs CBC & Chem 7: 03/07/18 05:36 03/08/18 11:12 Labs: Abnormal Lab Results - Last 24 Hours (Table) 03/07/18 03/07/18 03/08/18 Range/Units 16:40 21:17 06:12 Chloride (98-107) mmol/L BUN (7-17) mg/dL Glucose (74-99) mg/dL POC Glucose (mg/dL) 102 H 159 H 187 H (75-99) mg/dL 03/08/18 03/08/18 Range/Units 11:12 11:41 Chloride 108 H (98-107) mmol/L BUN 33 H (7-17) mg/dL Glucose 120 H (74-99) mg/dL POC Glucose (mg/dL) 150 H (75-99) mg/dL Microbiology - Last 24 Hours (Table) 03/05/18 18:20 Blood Culture - Preliminary Blood No Growth after 48 hours Assessment and Plan (1) Diverticulitis Narrative/Plan: 78-year-old female admitted with acute sigmoid diverticulitis abdominal pain diarrhea shortness of breath with exacerbation of heart failure. Current Visit: Yes Status: Acute Code(s): K57.92 - DVTRCLI OF INTEST, PART UNSP, W/O PERF OR ABSCESS W/O BLEED SNOMED Code(s): 611289076 (2) Congestive heart failure Current Visit: Yes Status: Acute Code(s): I50.9 - HEART FAILURE, UNSPECIFIED SNOMED Code(s): 73669150 Plan: 1. presently without abdominal pain afebrile. Tolerating full liquids may advance to low residue diet. Continue with antibiotics and switch to by mouth per medicine. GI office called no endoscopic records were found. Patient was advised to bring her records from her primary's office to follow-up visit for review. Outpatient colonoscopy advised in 4-6 weeks after discharge if not performed within the last few years.. We'll follow as needed. Assessment and plan a care discussed with Dr. Gillis
--- NOTE | 2018-03-08 14:36 | P.PN ---
Subjective Progress Note Date: 03/08/18 Principal diagnosis: Exacerbation of chronic obstructive pulmonary disease, ILD, pulmonary fibrosis , acute exacerbation of CHF This is a 78-year-old white female patient who presented to the emergency department on 03/05/2018 at 1600 for evaluation of worsening shortness of breath , severe weakness, cough with production of brownish colored phlegm, chills, diarrhea and thrush in her mouth. The shortness of breath has been increasingly worse for last few days, patient has been quite dyspneic even walking to the bathroom. Patient has been incontinent of watery diarrhea, patient denied any visible blood in it, no melena, no hematochezia. Patient reports a sore throat, she states she thinks she has thrush in her mouth. Patient had some chest discomfort across her anterior chest, without radiation, but associated with some mild nausea, no diaphoresis. She stated it lasted about 15 minutes, currently resolved. Patient has a medical history of COPD, not oxygen dependent at baseline, previous episodes of pneumonia, chronic congestive heart failure with systolic dysfunction and previously documented ejection fraction of 20-25%, valvular heart disease moderate to severe mitral regurgitation, moderate secondary pulmonary hypertension and moderate to severe tricuspid regurg. Patient has not been seen at this hospital in over a year, patient had not been to a doctor and has not refilled her prescription because she has been unable to follow with a doctor related to medical bills. Other history includes nephrectomy related to renal carcinoma, chronic kidney disease stage III, hypertension, thyroidectomy for history of thyroid cancer, chronic nicotine dependence with over 44 [id number] smoking history, bilateral idiopathic pulmonary fibrosis previously noted on chest x-rays and CT scans. Patient had a low-grade fever on admission, has been afebrile since. Asked x- ray showed cardiomegaly and advanced pulmonary fibrosis, possibility of mild heart failure. Abdomen and pelvis CT showed wall thickening of the sigmoid colon with multiple diverticula, system with diverticulitis. No drainable abscess was identified. There was evidence for mild rectal and vaginal prolapse. She has history bilateral lower lobe patchy infiltrates that could relate to pneumonia Or atelectasis. Labs showed WBC of 20.4, hemoglobin of 11.2 , INR was 1.1, sodium is 141, potassium is 4.5, chloride was 111, CO2 was 18, BUN is 20, and creatinine is 1.03, proBNP was 49,500; troponins were elevated at 0.056, 0.060, and 0.047. Patient was started on IV diuretics, empiric antibiotics with Levaquin and Flagyl, she is quite congested and wheezy and dyspneic with conversation. We're seeing this patient in consultation for acute exacerbation of COPD, underlying pneumonia is difficult to exclude on the background of interstitial lung disease changes present on the CT chest. On 03/07/2018 patient seen in follow-up on selective care unit. She is awake and alert, in no acute distress, she states her breathing is much easier, she is less wheezy and congested, diarrhea has resolved, she is tolerating clear liquid diet. Denies any abdominal pain, denies any fever or chills. Today's chest x-ray has been reviewed by Dr. Shaffer, and shows changes consistent with interstitial lung disease, and cardiomegaly. She remains on IV diuretics, empiric antibiotics, and we added IV steroids and nebulized bronchodilators yesterday. Today's lab work has been reviewed, cytosis is trending down, WBCs 15.5, hemoglobin is 12.5, electrolytes are within normal limits, BUN is 23, and creatinine is slightly on the rise at 1.08. Influenza Screen was negative. No fever no chills, blood culture showed no growth at the 24-hour michele. On 03/08/2018 patient seen in follow-up on selective care unit. Breathing easier, less congested, still gets quite dyspneic with exertion, to be doing better. Pulse ox on 2 L per nasal cannula is 94% no fever or chills. Lung sounds are positive for coarse rales bilateral lower lobes. High-resolution CT was completed and showed interstitial lung disease have significant progression from prior CT on 07/13/2016, moderate centrilobular emphysema with scattered blebs, cardiomegaly, moderate three-vessel coronary artery calcification, moderate size left pleural effusion and small right pleural effusion with compressive atelectasis. IV diuretic 7 transition to oral Lasix, patient continues on empiric antibiotics IV steroids. Overall she is improving, no further diarrhea. Objective - Vital Signs Vital signs: Vital Signs Temp 97.9 F 03/08/18 08:00 Pulse 100 03/08/18 12:08 Resp 20 03/08/18 12:09 BP 136/72 03/08/18 12:08 Pulse Ox 94 L 03/08/18 12:08 Intake & Output 03/07/18 03/08/18 03/08/18 18:59 06:59 18:59 Intake Total 957 942 Output Total 200 Balance 757 942 Weight 45.3 kg 46.1 kg Intake: Oral 957 942 Output: Urine 200 Other: Voiding Method Toilet Toilet # Voids 1 2 - Exam GENERAL EXAM: Alert, pleasant, 78-year-old white female, sitting up in bed, covered with blankets, no apparent distress HEAD: Normocephalic/atraumatic. EYES: Normal reaction of pupils, equal size. Conjunctiva pink, sclera white. NOSE: Clear with pink turbinates. THROAT: No erythema or exudates. NECK: No masses, no JVD, no thyroid enlargement, no adenopathy. CHEST: No chest wall deformity. Symmetrical expansion. LUNGS: Lung sounds are positive for diffuse bibasilar crackles CVS: Regular rate and rhythm, normal S1 and S2, no gallops, no murmurs, no rubs ABDOMEN: Soft, nontender. No hepatosplenomegaly, normal bowel sounds, no guarding or rigidity. EXTREMITIES: No clubbing, no edema, no cyanosis, 2+ pulses and upper and lower extremities. MUSCULOSKELETAL: Muscle strength and tone normal. SPINE: No scoliosis or deformity SKIN: No rashes CENTRAL NERVOUS SYSTEM: Alert and oriented -3. No focal deficits, tone is normal in all 4 extremities. PSYCHIATRIC: Alert and oriented -3. Appropriate affect. Intact judgment and insight. - Labs CBC & Chem 7: 03/07/18 05:36 03/08/18 11:12 Labs: Abnormal Lab Results - Last 24 Hours (Table) 03/07/18 03/07/18 03/08/18 Range/Units 16:40 21:17 06:12 Chloride (98-107) mmol/L BUN (7-17) mg/dL Glucose (74-99) mg/dL POC Glucose (mg/dL) 102 H 159 H 187 H (75-99) mg/dL 03/08/18 03/08/18 Range/Units 11:12 11:41 Chloride 108 H (98-107) mmol/L BUN 33 H (7-17) mg/dL Glucose 120 H (74-99) mg/dL POC Glucose (mg/dL) 150 H (75-99) mg/dL Microbiology - Last 24 Hours (Table) 03/05/18 18:20 Blood Culture - Preliminary Blood No Growth after 48 hours Assessment and Plan Plan: Assessment: #1. Acute exacerbation of chronic obstructive pulmonary disease secondary shortness of breath #2. Interstitial lung disease/idiopathic pulmonary fibrosis, not on oxygen currently or any treatment. The possibility of underlying bilateral lower lobe pneumonia on the CT of the abdomen and pelvis is difficult to rule out on the background of chronic interstitial changes, in view of presenting symptoms weakness, shortness of breath, cough and phlegm production #3. Diarrhea, CT abdomen and pelvis showed findings consistent with diverticulitis without abscess #4. Leukocytosis, low-grade fever possibly related to underlying pneumonia #5. Elevated troponins #6. Acute exacerbation of chronic congestive heart failure with systolic dysfunction. Patient had previously documented left ventricular ejection fraction of 20-25% #7. Secondary pulmonary hypertension #8. Moderate to severe mitral regurgitation and moderate to severe tricuspid regurgitation #9. Medical noncompliance related to financial difficulties #10. Chronic kidney disease, stage III #11. History of right nephrectomy #12. History of thyroidectomy for thyroid cancer #13. Chronic and ongoing tobacco dependence, carries a 22-fpxy-xyar smoking history #14. Previous episodes of pneumonia Plan: Continue current medical treatment, will transition to oral prednisone, and oral antibiotics, continue with nebulized bronchodilators, and oral diuretics. Home oxygen assessment, ambulate the patient, patient will need case management consultation related to her prescription coverage. Patient can be considered for discharge in next 24 hours with follow-up with Dr. Shaffer in the office I performed a history & physical examination of the patient and discussed their management with my nurse practitioner, Joelle East. I reviewed the nurse practitioner's note and agree with the documented findings and plan of care. Lung sounds are bibasilar crackles. The findings and the impression was discussed with the patient. I attest to the documentation by the nurse practitioner. Time with Patient: Less than 30
[2018-03-08 16:41] LABS: Glucose,Whole Blood 151 mg/dL (75-99)
--- NOTE | 2018-03-08 20:19 | P.PN ---
Subjective Progress Note Date: 03/08/18 Progress note being dictated for Dr. Alatorre. Interval history:Patient is a 78-year-old female with a known history of COPD, CHF with ejection fraction 20-25%, valvular heart disease with moderate to severe mitral regurgitation and severe tricuspid regurgitation, moderate secondary pulmonary hypertension, hypertension, history of right nephrectomy, CK D stage III, pulmonary fibrosis and other multiple medical problems came to ER with complaints of shortness of breath, cough and congestion and generalized weakness. Patient was also complaining of cough with sputum production. Denied any fever. Patient does have subjective chills otherwise. Symptoms have getting worse for the past few days. Patient is also complaining of watery diarrhea. Denied any hematemesis or melena. Chest x-ray showed cardiomegaly with advanced pulmonary fibrosis. There is decrease in pleural fluid compared to previous exam. CT of the abdomen and pelvis showed some fluid in the pelvis and wall thickening of the sigmoid colon with multiple diverticula. This is consistent with diverticulitis compared to old exam. There is evidence of mild rectal and vaginal prolapse. There is new bilateral lower lobe patchy pneumonia and atelectasis. There is upper and lower abdominal aortic aneurysm increased compared to old exam. Significant cardiomegaly and findings also consistent with acute CHF. BNP 49, 500. Troponin 0.056, 0.060 and 0.047. WBC 20.4 T-max 99.9 on admission. 03/07/2018 Patient's abdominal pain is much better now. Tolerating liquid diet and is advanced to full liquid diet now. Otherwise patient is being continued on antibiotics and steroids and breathing treatments. Pulmonary and cardiology and GI is following. Patient has been afebrile. No nausea no vomiting. Clinically is improving. compared to yesterday. Leukocytosis is improving. Patient had high-resolution CT of the chest was done to further diagnose pulmonary fibrosis. Cultures have been negative. IV Lasix has been discontinued and changed to by mouth. Ejection fraction 30-35 %. No other acute overnight issues. All other review of systems negative except the above. 03/08/2018 maintained on Levaquin, Flagyl, nebulized bronchodilators, steroids, lasix. Congestion/breathing improving. Maintaining O2 sats of 94-96% on 2 L nasal cannula. Chest CT reporting pulmonary fibrosis/interstitial lung disease , possible UIP, moderate central lobar emphysema with scattered blebs, moderate left pleural effusion , compressive atelectasis ,descending thoracic aorta aneurysm 3.8 cm. Diarrhea has subsided. Tolerating bland, low-residue diet with no nausea vomiting or abdominal pain. Afebrile. Evaluated by GI with recommendations noted of outpatient colonoscopy in a few weeks. Objective - Vital Signs Vital signs: Vital Signs Temp 98.2 F 03/08/18 15:36 Pulse 104 H 03/08/18 15:43 Resp 18 03/08/18 15:36 BP 134/83 03/08/18 15:36 Pulse Ox 96 03/08/18 15:36 Intake & Output 03/08/18 03/08/18 03/09/18 06:59 18:59 06:59 Intake Total 942 Output Total 900 Balance 42 Weight 46.1 kg Intake: Oral 942 Output: Urine 900 Other: Voiding Method Toilet # Voids 2 - Exam Patient is lying in the bed comfortably, no acute distress, alert and oriented 2, mild confusion HEENT: Normocephalic. Neck is supple. Pupils reactive. Nostrils clear. Oral cavity is moist. Hard of hearing. Neck reveals positive JVD-root, carotid bruits, or thyromegaly. CHEST EXAMINATION: Trachea is central. Symmetrical expansion. Bibasilar crackles, no rhonchi, No wheezing.. CARDIAC: Normal S1, S2 with no gallops. Systolic murmur, ABDOMEN: Soft. Bowel sounds normal. No organomegaly. No guarding, no rigidity Extremities: reveal no edema. No clubbing or cyanosis Neurologically awake, alert, oriented x3 with well-coordinated movements. No focal deficits noted Skin: No rash or skin lesions. Psychiatric: Coperative. Nonsuicidal Musculoskeletal: No joint swelling or deformity. Normal range of motion. - Labs CBC & Chem 7: 03/07/18 05:36 03/08/18 11:12 Labs: Abnormal Lab Results - Last 24 Hours (Table) 03/07/18 03/08/18 03/08/18 Range/Units 21:17 06:12 11:12 Chloride 108 H (98-107) mmol/L BUN 33 H (7-17) mg/dL Glucose 120 H (74-99) mg/dL POC Glucose (mg/dL) 159 H 187 H (75-99) mg/dL 03/08/18 03/08/18 Range/Units 11:41 16:38 Chloride (98-107) mmol/L BUN (7-17) mg/dL Glucose (74-99) mg/dL POC Glucose (mg/dL) 150 H 151 H (75-99) mg/dL Microbiology - Last 24 Hours (Table) 03/05/18 18:20 Blood Culture - Preliminary Blood No Growth after 48 hours Assessment and Plan Assessment: Acute sigmoid colon diverticulitis as per CT abdomen and pelvis Bilateral lower lobe pneumonia and atelectasis. Leukocytosis with WBC count 20.4 and low-grade temperature 99.9 on admission Acute COPD exacerbation Interstitial lung disease/pulmonary fibrosis Acute on chronic CHF with systolic and diastolic heart failure. Ejection fraction 30-25% Valvular heart disease with moderate severe mitral regurgitation and moderate to severe tricuspid regurgitation Severe pulmonary hypertension Elevated troponin level likely demand mismatch Secondary moderate pulmonary hypertension Chronic kidney disease stage III hypertension History of right nephrectomy History of thyroidectomy due to thyroid cancer Ongoing nicotine addiction Plan: Continue current medication regime ,monitoring and symptomatic treatment. Chest x-ray ordered. Continue on nebulized bronchodilators, steroids, antibiotics, diuretics. Diet recently advanced per GI. Close monitoring of renal function and electrolytes. Further recommendations to follow. The impression and plan of care has been dictated as directed. : I performed a history and examination of this patient, discussed the same with the dictator. I agree with the dictator's note ,documented as a scribe. Any additional findings or plans will be noted.
[2018-03-08 20:37] LABS: Glucose,Whole Blood 107 mg/dL (75-99)
[2018-03-08] MEDS: LOSARTAN 25 MG TAB PO SCH (22:21)
[2018-03-08] MEDS: metroNIDAZOLE 500 MG TAB PO SCH (22:22)
--- NOTE | 2018-03-08 22:22 | XR ---
EXAMINATION TYPE: XR chest 2V DATE OF EXAM: 03/08/2018 COMPARISON: Yesterday HISTORY: Follow-up heart failure TECHNIQUE: Frontal and lateral views of the chest are obtained. FINDINGS: Heart is enlarged. There is some pulmonary vascular congestion. There is also underlying p ulmonary fibrosis. There is slight blunting of the costophrenic angles. There are chest leads. Thorac ic aorta is atheromatous. IMPRESSION: Congestive heart failure and pulmonary fibrosis. No significant change.
[2018-03-08] MEDS: ACETAMINOPHEN TAB 325 MG TAB PO PRN (23:23)
[2018-03-09 06:05] LABS: Glucose,Whole Blood 195 mg/dL (75-99)
[2018-03-09] MEDS: INSULIN ASPART 100 UNIT/ML 1 ML 10 ML VIAL SQ SCH ×4 (06:11→20:41)
[2018-03-09 06:32] LABS: Basophils % (A) 0 %; Eosinophils % (A) 0 %; HCT 35.2 % (34.0-46.0); HGB 10.5 gm/dL (11.4-16.0); Hypochromasia Marked; Lymphocytes # (A) 0.2 k/uL (1.0-4.8); Lymphocytes % (A) 2 %; MCH 27.7 pg (25.0-35.0); MCHC 29.8 g/dL (31.0-37.0); MCV 93.1 fL (80.0-100.0); Mean Platelet Volume 7.3; Monocytes # (A) 0.5 k/uL (0-1.0); Monocytes % (A) 3 %; Neutrophils # (A) 14.6 k/uL (1.3-7.7); Neutrophils % (A) 95 %; Platelet Count 270 k/uL (150-450); RBC 3.78 m/uL (3.80-5.40); RDW 15.3 % (11.5-15.5); WBC 15.4 k/uL (3.8-10.6)
[2018-03-09 06:47] LABS: Calcium 8.8 mg/dL (8.4-10.2); Potassium 4.4 mmol/L (3.5-5.1)
[2018-03-09] MEDS: IPRATROPIUM-ALBUTEROL 3 ML NEB INHALATION SCH ×4 (07:17→20:17)
[2018-03-09] MEDS: FORMOTEROL FUMARATE 20 MCG/2 ML NEBU INHALATION SCH ×2 (07:17→20:17)
[2018-03-09] MEDS: BUDESONIDE 1 MG/2 ML NEBU INHALATION SCH ×2 (07:17→20:17)
[2018-03-09] MEDS: FUROSEMIDE 40 MG TAB PO SCH (09:16)
[2018-03-09] MEDS: LEVOFLOXACIN 750 MG TAB PO SCH (09:16)
[2018-03-09] MEDS: methylPREDNISolone SOD SUCCI 40 MG/ML 1 ML VIAL IV SCH ×3 (09:16→22:56)
[2018-03-09] MEDS: ATORVASTATIN 40 MG TAB PO SCH (09:16)
[2018-03-09] MEDS: METOPROLOL TARTRATE 12.5 MG TAB PO SCH ×2 (09:16→20:42)
[2018-03-09] MEDS: ASPIRIN 81 MG PO SCH (09:16)
[2018-03-09] MEDS: metroNIDAZOLE 500 MG TAB PO SCH ×4 (09:16→20:43)
[2018-03-09] MEDS: INSULIN DETEMIR 100 UNIT/ML 10 ML VIAL SQ SCH (09:17)
[2018-03-09 11:58] LABS: Glucose,Whole Blood 126 mg/dL (75-99)
--- NOTE | 2018-03-09 12:39 | P.PN ---
Subjective Progress Note Date: 03/09/18 Principal diagnosis: Exacerbation of chronic obstructive pulmonary disease, ILD, pulmonary fibrosis , acute exacerbation of CHF This is a 78-year-old white female patient who presented to the emergency department on 03/05/2018 at 1600 for evaluation of worsening shortness of breath , severe weakness, cough with production of brownish colored phlegm, chills, diarrhea and thrush in her mouth. The shortness of breath has been increasingly worse for last few days, patient has been quite dyspneic even walking to the bathroom. Patient has been incontinent of watery diarrhea, patient denied any visible blood in it, no melena, no hematochezia. Patient reports a sore throat, she states she thinks she has thrush in her mouth. Patient had some chest discomfort across her anterior chest, without radiation, but associated with some mild nausea, no diaphoresis. She stated it lasted about 15 minutes, currently resolved. Patient has a medical history of COPD, not oxygen dependent at baseline, previous episodes of pneumonia, chronic congestive heart failure with systolic dysfunction and previously documented ejection fraction of 20-25%, valvular heart disease moderate to severe mitral regurgitation, moderate secondary pulmonary hypertension and moderate to severe tricuspid regurg. Patient has not been seen at this hospital in over a year, patient had not been to a doctor and has not refilled her prescription because she has been unable to follow with a doctor related to medical bills. Other history includes nephrectomy related to renal carcinoma, chronic kidney disease stage III, hypertension, thyroidectomy for history of thyroid cancer, chronic nicotine dependence with over 44 [id number] smoking history, bilateral idiopathic pulmonary fibrosis previously noted on chest x-rays and CT scans. Patient had a low-grade fever on admission, has been afebrile since. Asked x- ray showed cardiomegaly and advanced pulmonary fibrosis, possibility of mild heart failure. Abdomen and pelvis CT showed wall thickening of the sigmoid colon with multiple diverticula, system with diverticulitis. No drainable abscess was identified. There was evidence for mild rectal and vaginal prolapse. She has history bilateral lower lobe patchy infiltrates that could relate to pneumonia Or atelectasis. Labs showed WBC of 20.4, hemoglobin of 11.2 , INR was 1.1, sodium is 141, potassium is 4.5, chloride was 111, CO2 was 18, BUN is 20, and creatinine is 1.03, proBNP was 49,500; troponins were elevated at 0.056, 0.060, and 0.047. Patient was started on IV diuretics, empiric antibiotics with Levaquin and Flagyl, she is quite congested and wheezy and dyspneic with conversation. We're seeing this patient in consultation for acute exacerbation of COPD, underlying pneumonia is difficult to exclude on the background of interstitial lung disease changes present on the CT chest. On 03/07/2018 patient seen in follow-up on selective care unit. She is awake and alert, in no acute distress, she states her breathing is much easier, she is less wheezy and congested, diarrhea has resolved, she is tolerating clear liquid diet. Denies any abdominal pain, denies any fever or chills. Today's chest x-ray has been reviewed by Dr. Shaffer, and shows changes consistent with interstitial lung disease, and cardiomegaly. She remains on IV diuretics, empiric antibiotics, and we added IV steroids and nebulized bronchodilators yesterday. Today's lab work has been reviewed, cytosis is trending down, WBCs 15.5, hemoglobin is 12.5, electrolytes are within normal limits, BUN is 23, and creatinine is slightly on the rise at 1.08. Influenza Screen was negative. No fever no chills, blood culture showed no growth at the 24-hour michele. On 03/08/2018 patient seen in follow-up on selective care unit. Breathing easier, less congested, still gets quite dyspneic with exertion, to be doing better. Pulse ox on 2 L per nasal cannula is 94% no fever or chills. Lung sounds are positive for coarse rales bilateral lower lobes. High-resolution CT was completed and showed interstitial lung disease have significant progression from prior CT on 07/13/2016, moderate centrilobular emphysema with scattered blebs, cardiomegaly, moderate three-vessel coronary artery calcification, moderate size left pleural effusion and small right pleural effusion with compressive atelectasis. IV diuretic 7 transition to oral Lasix, patient continues on empiric antibiotics IV steroids. Overall she is improving, no further diarrhea. On 03/09/2018 patient seen in follow-up on selective care unit, he needs to improve, breathing easier, socks on 2 L per nasal cannula was 94%, afebrile, hemodynamically stable. Repeat chest x-ray showed some pulmonary vascular congestion, and underlying pulmonary fibrosis slight blunting of the costophrenic angles. His labs have been reviewed, WBC 15.4, hemoglobin is 10.5 , BMP was unremarkable. Clinically she is stable, lung sounds are positive for some crackles at bilateral bases, not bronchospastic on today's exam, she has an occasional cough, nonproductive. From pulmonary perspective she is stable for discharge home today she'll need follow-up appointment in the office Objective - Vital Signs Vital signs: Vital Signs Temp 98 F 03/09/18 08:00 Pulse 82 03/09/18 11:30 Resp 18 03/09/18 08:00 BP 130/83 03/09/18 08:00 Pulse Ox 94 L 03/09/18 08:00 Intake & Output 03/08/18 03/09/18 03/09/18 18:59 06:59 18:59 Intake Total 942 480 120 Output Total 900 Balance 42 480 120 Weight 46.1 kg Intake: Oral 942 480 120 Output: Urine 900 Other: Voiding Method Toilet - Exam GENERAL EXAM: Alert, pleasant, 78-year-old white female, sitting up in bed, covered with blankets, no apparent distress HEAD: Normocephalic/atraumatic. EYES: Normal reaction of pupils, equal size. Conjunctiva pink, sclera white. NOSE: Clear with pink turbinates. THROAT: No erythema or exudates. NECK: No masses, no JVD, no thyroid enlargement, no adenopathy. CHEST: No chest wall deformity. Symmetrical expansion. LUNGS: Lung sounds are positive for diffuse bibasilar crackles CVS: Regular rate and rhythm, normal S1 and S2, no gallops, no murmurs, no rubs ABDOMEN: Soft, nontender. No hepatosplenomegaly, normal bowel sounds, no guarding or rigidity. EXTREMITIES: No clubbing, no edema, no cyanosis, 2+ pulses and upper and lower extremities. MUSCULOSKELETAL: Muscle strength and tone normal. SPINE: No scoliosis or deformity SKIN: No rashes CENTRAL NERVOUS SYSTEM: Alert and oriented -3. No focal deficits, tone is normal in all 4 extremities. PSYCHIATRIC: Alert and oriented -3. Appropriate affect. Intact judgment and insight. - Labs CBC & Chem 7: 03/09/18 05:24 03/09/18 05:24 Labs: Abnormal Lab Results - Last 24 Hours (Table) 03/08/18 03/08/18 03/09/18 Range/Units 16:38 20:34 05:24 WBC 15.4 H (3.8-10.6) k/uL RBC 3.78 L (3.80-5.40) m/uL Hgb 10.5 L (11.4-16.0) gm/dL MCHC 29.8 L (31.0-37.0) g/dL Neutrophils # 14.6 H (1.3-7.7) k/uL Lymphocytes # 0.2 L (1.0-4.8) k/uL Chloride (98-107) mmol/L BUN (7-17) mg/dL Glucose (74-99) mg/dL POC Glucose (mg/dL) 151 H 107 H (75-99) mg/dL 03/09/18 03/09/18 03/09/18 Range/Units 05:24 06:03 11:56 WBC (3.8-10.6) k/uL RBC (3.80-5.40) m/uL Hgb (11.4-16.0) gm/dL MCHC (31.0-37.0) g/dL Neutrophils # (1.3-7.7) k/uL Lymphocytes # (1.0-4.8) k/uL Chloride 108 H (98-107) mmol/L BUN 34 H (7-17) mg/dL Glucose 170 H (74-99) mg/dL POC Glucose (mg/dL) 195 H 126 H (75-99) mg/dL Microbiology - Last 24 Hours (Table) 03/05/18 18:20 Blood Culture - Preliminary Blood No Growth after 72 hours Assessment and Plan Plan: Assessment: #1. Acute exacerbation of chronic obstructive pulmonary disease secondary shortness of breath #2. Interstitial lung disease/idiopathic pulmonary fibrosis, not on oxygen currently or any treatment. The possibility of underlying bilateral lower lobe pneumonia on the CT of the abdomen and pelvis is difficult to rule out on the background of chronic interstitial changes, in view of presenting symptoms weakness, shortness of breath, cough and phlegm production #3. Diarrhea, CT abdomen and pelvis showed findings consistent with diverticulitis without abscess #4. Leukocytosis, low-grade fever possibly related to underlying pneumonia #5. Elevated troponins #6. Acute exacerbation of chronic congestive heart failure with systolic dysfunction. Patient had previously documented left ventricular ejection fraction of 20-25% #7. Secondary pulmonary hypertension #8. Moderate to severe mitral regurgitation and moderate to severe tricuspid regurgitation #9. Medical noncompliance related to financial difficulties #10. Chronic kidney disease, stage III #11. History of right nephrectomy #12. History of thyroidectomy for thyroid cancer #13. Chronic and ongoing tobacco dependence, carries a [id number] smoking history #14. Previous episodes of pneumonia Plan: Patient continues to improve, she is breathing easier, she is tolerating ambulation, no acute complaints, no fever or chills, no wheezing or chest congestion. Today's chest x-ray has been reviewed and showed some pulmonary vessel congestion, and a background of pulmonary fibrosis, slight blunting of the costophrenic angles. No worsening shortness of breath. Cultures are negative. Spoke to discharge planning today, and patient will have assistance with prescription medications, urine he has a nebulizer at home, we'll send her home on oral course of prednisone, oral antibiotics, nebulized treatments, and Symbicort. Follow-up with Dr. Shaffer in the office in one week I performed a history & physical examination of the patient and discussed their management with my nurse practitioner, Joelle East. I reviewed the nurse practitioner's note and agree with the documented findings and plan of care. Lung sounds are positive for bibasilar crackles. The findings and the impression was discussed with the patient. I attest to the documentation by the nurse practitioner. Time with Patient: Less than 30
--- NOTE | 2018-03-09 15:55 | PN ---
PROGRESS NOTE Mrs. Graff is doing better today. Her breathing is easier. She has actually been ambulating without too many symptoms. Her functional capacity has also improved a lot. She has been hospitalized with what seems to be a volume-overload type picture with some colitis and was in congestive heart failure. She is known to have ejection fraction in the 35% range and she was diuresed very aggressively. She actually feels a lot better today. Her vital signs are stable. Her blood pressure is actually under good control. There is JVD of 1 cm noted. No carotid bruit. S1-S2 heard normally with a short systolic murmur. Lungs reveal improved air entry. Abdomen and lower extremity exam is unchanged. I am recommending that we place her on oral Lasix at 40 mg b.i.d. and continue the beta berenice and losartan and see how she does. This lady has a history of CHF secondary to decreased ejection fraction with systolic heart failure, but also this is complicated by her interstitial lung disease as well. Pulmonary is also following the patient closely. We will switch her to oral Lasix at 40 mg in the morning and 20 mg in the afternoon and see how she does. MMODL / IJN: [id number] /
[2018-03-09] MEDS ORDERED: FUROSEMIDE 40 MG TAB PO SCH (16:00)
[2018-03-09] MEDS: FUROSEMIDE 20 MG TAB PO SCH (16:04)
[2018-03-09 17:13] LABS: Glucose,Whole Blood 101 mg/dL (75-99)
--- NOTE | 2018-03-09 18:49 | PN ---
PROGRESS NOTE DATE OF SERVICE: 03/09/2018 This 78-year-old woman who was admitted with acute sigmoid colon diverticulitis also had bilateral lower lobe pneumonia. The patient has been closely monitored. No chest pain. No palpitations. No fever. Cardiology and Pulmonology are following the patient closely as well. The patient has COPD acute exacerbation as well. Cardiology has seen the patient as well. No chest pain. No palpitation. PAST MEDICAL HISTORY: Reviewed. REVIEW OF SYSTEMS: Cardiovascular systems: S1, S2. Respiration: As mentioned earlier. GI as mentioned earlier. : No dysuria. CENTRAL NERVOUS SYSTEM: No focal deficits. CURRENT MEDICATIONS ARE: 1. Tylenol 650 q.6h p.r.n. 2. DuoNeb q.i.d. and p.r.n. 3. Aspirin 81 mg. 4. Lipitor 40 mg. 5. Pulmicort 1 mg daily. 6. Perforomist 20 mg b.i.d. 7. Lasix 20 mg. 8. NovoLog a.c. and q.h.s. 9. Levemir 10 units subcu daily. 10.Levaquin 750 daily. 11.Solu-Medrol 40 IV q.8h. 12.Cozaar. 13.Lopressor. 14.Flagyl. 16.Narcan. 17.Requip. PHYSICAL EXAM: Alert and oriented x3. Pulse is 93, blood pressure 120/77, respiration 18, temperature normal. Pulse ox 100 percent on 2 L. HEENT: Conjunctivae normal. Oral mucosa moist. NECK: No jugular venous distention. No carotid bruit. No lymph node enlargement. CARDIOVASCULAR: S1, S2 muffled. Respiratory: Breath sounds diminished in the bases. Bilateral scattered rhonchi and crackles. ABDOMEN: Soft, nontender. No mass palpable. Legs no edema. No swelling. CENTRAL NERVOUS SYSTEM: Higher functions as mentioned earlier. Moves all four extremities. No focal deficits. Lymphatics: No lymph nodes palpable in the neck, axillae or groin. SKIN: No ulcer, rashes or bleeding. ASSESSMENT: 1. Acute sigmoid colonic diverticulitis per CT scan of the abdomen and pelvis. 2. Bilateral lower lobe pneumonia, atelectasis. 3. Chronic obstructive pulmonary disease acute exacerbation. 4. Interstitial lung disease and pulmonary fibrosis. 5. Acute on chronic congestive heart failure with systolic and diastolic heart failure, ejection fraction 30-35 percent. 6. Valvular heart disease with moderate to severe mitral regurgitation and moderate to severe tricuspid regurgitation and severe pulmonary hypertension. 7. Elevated troponin, likely demand mismatch. 8. Secondary moderate pulmonary hypertension. 9. Chronic kidney stage 3. 10.Hypertension. 11.History of right nephrectomy. 12.History of thyroidectomy due to thyroid cancer. 13.Ongoing nicotine dependence. RECOMMENDATIONS AND DISCUSSION: Recommend to continue current medication, management with symptomatic treatment. Continue with diuretics. Continue the rest of the medications. Prognosis guarded because of multiple complex medical issues. Increase ambulation. Guarded prognosis. Further recommendations to follow. See orders for details. 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 MMODL / IJN: [id number] / MTDD
[2018-03-09 20:10] LABS: Glucose,Whole Blood 189 mg/dL (75-99)
[2018-03-09] MEDS: LOSARTAN 25 MG TAB PO SCH (20:42)
[2018-03-10 06:26] LABS: Glucose,Whole Blood 127 mg/dL (75-99)
[2018-03-10] MEDS: INSULIN ASPART 100 UNIT/ML 1 ML 10 ML VIAL SQ SCH ×4 (06:27→20:48)
[2018-03-10 06:36] LABS: Basophils % (A) 0 %; Eosinophils % (A) 0 %; HCT 34.3 % (34.0-46.0); HGB 10.3 gm/dL (11.4-16.0); Hypochromasia Marked; Lymphocytes # (A) 0.3 k/uL (1.0-4.8); Lymphocytes % (A) 2 %; MCH 27.6 pg (25.0-35.0); MCHC 29.9 g/dL (31.0-37.0); MCV 92.5 fL (80.0-100.0); Mean Platelet Volume 7.2; Monocytes # (A) 0.6 k/uL (0-1.0); Monocytes % (A) 4 %; Neutrophils # (A) 13.6 k/uL (1.3-7.7); Neutrophils % (A) 93 %; Platelet Count 249 k/uL (150-450); RBC 3.71 m/uL (3.80-5.40); RDW 15.3 % (11.5-15.5); WBC 14.6 k/uL (3.8-10.6)
[2018-03-10 06:45] LABS: Calcium 8.7 mg/dL (8.4-10.2); Potassium 4.4 mmol/L (3.5-5.1)
[2018-03-10] MEDS: FUROSEMIDE 40 MG TAB PO SCH (08:22)
[2018-03-10] MEDS: METOPROLOL TARTRATE 12.5 MG TAB PO SCH ×2 (08:22→20:47)
[2018-03-10] MEDS: ATORVASTATIN 40 MG TAB PO SCH (08:22)
[2018-03-10] MEDS: ASPIRIN 81 MG PO SCH (08:22)
[2018-03-10] MEDS: methylPREDNISolone SOD SUCCI 40 MG/ML 1 ML VIAL IV SCH ×2 (08:22→15:34)
[2018-03-10] MEDS: metroNIDAZOLE 500 MG TAB PO SCH ×4 (08:22→20:48)
[2018-03-10] MEDS: IPRATROPIUM-ALBUTEROL 3 ML NEB INHALATION SCH ×4 (08:52→20:02)
[2018-03-10] MEDS: FORMOTEROL FUMARATE 20 MCG/2 ML NEBU INHALATION SCH ×2 (08:52→20:01)
[2018-03-10] MEDS: BUDESONIDE 1 MG/2 ML NEBU INHALATION SCH ×2 (08:52→20:01)
[2018-03-10] MEDS: INSULIN DETEMIR 100 UNIT/ML 10 ML VIAL SQ SCH (09:34)
[2018-03-10 11:37] LABS: Glucose,Whole Blood 213 mg/dL (75-99)
--- NOTE | 2018-03-10 13:19 | P.PN ---
Subjective Progress Note Date: 03/10/18 Principal diagnosis: Acute on chronic hypoxic respiratory failure secondary to COPD, interstitial lung disease, and congestive heart failure. his is a 78-year-old white female patient who presented to the emergency department on 03/05/2018 at 1600 for evaluation of worsening shortness of breath , severe weakness, cough with production of brownish colored phlegm, chills, diarrhea and thrush in her mouth. The shortness of breath has been increasingly worse for last few days, patient has been quite dyspneic even walking to the bathroom. Patient has been incontinent of watery diarrhea, patient denied any visible blood in it, no melena, no hematochezia. Patient reports a sore throat, she states she thinks she has thrush in her mouth. Patient had some chest discomfort across her anterior chest, without radiation, but associated with some mild nausea, no diaphoresis. She stated it lasted about 15 minutes, currently resolved. Patient has a medical history of COPD, not oxygen dependent at baseline, previous episodes of pneumonia, chronic congestive heart failure with systolic dysfunction and previously documented ejection fraction of 20-25%, valvular heart disease moderate to severe mitral regurgitation, moderate secondary pulmonary hypertension and moderate to severe tricuspid regurg. Patient has not been seen at this hospital in over a year, patient had not been to a doctor and has not refilled her prescription because she has been unable to follow with a doctor related to medical bills. Other history includes nephrectomy related to renal carcinoma, chronic kidney disease stage III, hypertension, thyroidectomy for history of thyroid cancer, chronic nicotine dependence with over 44 [id number] smoking history, bilateral idiopathic pulmonary fibrosis previously noted on chest x-rays and CT scans. Patient had a low-grade fever on admission, has been afebrile since. Asked x- ray showed cardiomegaly and advanced pulmonary fibrosis, possibility of mild heart failure. Abdomen and pelvis CT showed wall thickening of the sigmoid colon with multiple diverticula, system with diverticulitis. No drainable abscess was identified. There was evidence for mild rectal and vaginal prolapse. She has history bilateral lower lobe patchy infiltrates that could relate to pneumonia Or atelectasis. Labs showed WBC of 20.4, hemoglobin of 11.2 , INR was 1.1, sodium is 141, potassium is 4.5, chloride was 111, CO2 was 18, BUN is 20, and creatinine is 1.03, proBNP was 49,500; troponins were elevated at 0.056, 0.060, and 0.047. Patient was started on IV diuretics, empiric antibiotics with Levaquin and Flagyl, she is quite congested and wheezy and dyspneic with conversation. We're seeing this patient in consultation for acute exacerbation of COPD, underlying pneumonia is difficult to exclude on the background of interstitial lung disease changes present on the CT chest. On 03/07/2018 patient seen in follow-up on selective care unit. She is awake and alert, in no acute distress, she states her breathing is much easier, she is less wheezy and congested, diarrhea has resolved, she is tolerating clear liquid diet. Denies any abdominal pain, denies any fever or chills. Today's chest x-ray has been reviewed by Dr. Shaffer, and shows changes consistent with interstitial lung disease, and cardiomegaly. She remains on IV diuretics, empiric antibiotics, and we added IV steroids and nebulized bronchodilators yesterday. Today's lab work has been reviewed, cytosis is trending down, WBCs 15.5, hemoglobin is 12.5, electrolytes are within normal limits, BUN is 23, and creatinine is slightly on the rise at 1.08. Influenza Screen was negative. No fever no chills, blood culture showed no growth at the 24-hour michele. On 03/08/2018 patient seen in follow-up on selective care unit. Breathing easier, less congested, still gets quite dyspneic with exertion, to be doing better. Pulse ox on 2 L per nasal cannula is 94% no fever or chills. Lung sounds are positive for coarse rales bilateral lower lobes. High-resolution CT was completed and showed interstitial lung disease have significant progression from prior CT on 07/13/2016, moderate centrilobular emphysema with scattered blebs, cardiomegaly, moderate three-vessel coronary artery calcification, moderate size left pleural effusion and small right pleural effusion with compressive atelectasis. IV diuretic 7 transition to oral Lasix, patient continues on empiric antibiotics IV steroids. Overall she is improving, no further diarrhea. On 03/09/2018 patient seen in follow-up on selective care unit, he needs to improve, breathing easier, socks on 2 L per nasal cannula was 94%, afebrile, hemodynamically stable. Repeat chest x-ray showed some pulmonary vascular congestion, and underlying pulmonary fibrosis slight blunting of the costophrenic angles. His labs have been reviewed, WBC 15.4, hemoglobin is 10.5 , BMP was unremarkable. Clinically she is stable, lung sounds are positive for some crackles at bilateral bases, not bronchospastic on today's exam, she has an occasional cough, nonproductive. From pulmonary perspective she is stable for discharge home today she'll need follow-up appointment in the office Reevaluated today on 03/10/2018, patient remains on selective care unit, on 2 L nasal cannula, saturating well, afebrile, has some productive cough with whitish and yellowish phlegm. Feeling better overall, patient does have multiple findings including interstitial lung disease as documented on the CT of the chest, underlying COPD, and suspect some component of congestive heart failure, remains on diuretics, she has poor LV function. CBC continues to show a bit of leukocytosis, basic metabolic profile is normal BUN is 39 and creatinine 0.95. Objective - Vital Signs Vital signs: Vital Signs Temp 97.5 F L 03/10/18 12:00 Pulse 95 03/10/18 12:00 Resp 18 03/10/18 12:00 BP 129/75 03/10/18 12:00 Pulse Ox 92 L 03/10/18 12:00 Intake & Output 03/09/18 03/10/18 03/10/18 18:59 06:59 18:59 Intake Total 860 250 Balance 860 250 Weight 45.3 kg Intake: IV 10 .9 10 Oral 860 240 Other: Voiding Method Toilet # Voids 1 1 # Bowel Movements 0 - Exam ENERAL EXAM: Revealed a very pleasant 78-year-old female in no distress, on 2 L nasal cannula. HEENT: PERRLA, EOMI, no icterus, no JVD, no stridor, no neck masses, moist mucous membranes. CHEST: No chest wall deformity. Symmetrical expansion. LUNGS: Lung sounds are positive for diffuse bibasilar Velcro rales and crackles. CVS: Regular rate and rhythm, normal S1 and S2, no gallops, no murmurs, no rubs ABDOMEN: Soft, nontender. No hepatosplenomegaly, normal bowel sounds, no guarding or rigidity. EXTREMITIES: No clubbing, no edema, no cyanosis, 2+ pulses and upper and lower extremities. MUSCULOSKELETAL: Muscle strength and tone normal. SPINE: No scoliosis or deformity SKIN: No rashes CENTRAL NERVOUS SYSTEM: Alert and oriented -3. No focal deficits, tone is normal in all 4 extremities. PSYCHIATRIC: Alert and oriented -3. Appropriate affect. Intact judgment and insight. - Labs CBC & Chem 7: 03/10/18 05:48 03/10/18 05:48 Labs: Abnormal Lab Results - Last 24 Hours (Table) 03/09/18 03/09/18 03/10/18 Range/Units 16:56 20:09 05:48 WBC 14.6 H (3.8-10.6) k/uL RBC 3.71 L (3.80-5.40) m/uL Hgb 10.3 L (11.4-16.0) gm/dL MCHC 29.9 L (31.0-37.0) g/dL Neutrophils # 13.6 H (1.3-7.7) k/uL Lymphocytes # 0.3 L (1.0-4.8) k/uL BUN (7-17) mg/dL Glucose (74-99) mg/dL POC Glucose (mg/dL) 101 H 189 H (75-99) mg/dL 03/10/18 03/10/18 03/10/18 Range/Units 05:48 06:25 11:31 WBC (3.8-10.6) k/uL RBC (3.80-5.40) m/uL Hgb (11.4-16.0) gm/dL MCHC (31.0-37.0) g/dL Neutrophils # (1.3-7.7) k/uL Lymphocytes # (1.0-4.8) k/uL BUN 39 H (7-17) mg/dL Glucose 124 H (74-99) mg/dL POC Glucose (mg/dL) 127 H 213 H (75-99) mg/dL Microbiology - Last 24 Hours (Table) 03/05/18 18:20 Blood Culture - Preliminary Blood No Growth after 96 hours Assessment and Plan Assessment: #1. Acute hypoxic respiratory failure secondary to Acute exacerbation of chronic obstructive pulmonary disease interstitial lung disease, and systolic congestive heart failure. #2. Interstitial lung disease/idiopathic pulmonary fibrosis, clearly seen on high-resolution CT of the chest done on this admission. #3. Diarrhea, CT abdomen and pelvis showed findings consistent with diverticulitis without abscess #4. Leukocytosis, low-grade fever possibly related to underlying pneumonia #5. Elevated troponins #6. Acute exacerbation of chronic congestive heart failure with systolic dysfunction. Patient had previously documented left ventricular ejection fraction of 20-25% #7. Secondary pulmonary hypertension #8. Moderate to severe mitral regurgitation and moderate to severe tricuspid regurgitation #9. Medical noncompliance related to financial difficulties #10. Chronic kidney disease, stage III #11. History of right nephrectomy #12. History of thyroidectomy for thyroid cancer #13. Chronic and ongoing tobacco dependence, carries a [id number] smoking history #14. Previous episodes of pneumonia, doubt pneumonia on this admission. Recommendation: Continue present course of treatment including bronchodilators, oxygen, diuretics, antibiotics in the form of Levaquin, steroids in the form of methylprednisolone, consider switching the patient to oral meds, and consider discharge planning. Patient must have follow-up with me on outpatient basis. All her meds were reviewed. Time with Patient: Less than 30
[2018-03-10] MEDS: FUROSEMIDE 20 MG TAB PO SCH (15:34)
--- NOTE | 2018-03-10 16:00 | XR ---
EXAMINATION TYPE: XR chest 1V portable DATE OF EXAM: 03/10/2018 COMPARISON: 03/08/2018 HISTORY: Heart failure TECHNIQUE: Single frontal view of the chest is obtained. FINDINGS: Heart is enlarged. There is pulmonary vascular congestion. There is mild blunting of costo phrenic angles. Thoracic aorta is atheromatous. There are chest leads. IMPRESSION: Mild congestive heart failure with small pleural effusions. There is slight improvement in the pulmonary edema compared to old exam.
[2018-03-10 16:53] LABS: Glucose,Whole Blood 84 mg/dL (75-99)
[2018-03-10] MEDS: NYSTATIN 100,000 UNIT/ML SUSP 500,000 UNIT/5 ML CUP PO SCH ×2 (18:04→20:48)
[2018-03-10 20:07] LABS: Glucose,Whole Blood 162 mg/dL (75-99)
[2018-03-10] MEDS: LOSARTAN 25 MG TAB PO SCH (20:47)
--- NOTE | 2018-03-10 21:14 | PN ---
PROGRESS NOTE DATE OF SERVICE: 03/10/2018 This 78-year-old woman who was admitted with acute sigmoid diverticulitis, also had bilateral lower lobe pneumonia. The patient also has history of pulmonary fibrosis. The patient is on IV steroids at this time. Cardiology is following the patient closely. ( ) has recommended continue the current medical treatment. Chest x- ray, which is done today, personally reviewed by me showed bilateral interstitial infiltrates, possible CHF, have improving picture. No chest pain. No palpitations. EXAM: Alert and oriented x3. Pulse 88, blood pressure 124/77, respirations 18, temperature 98.6, pulse ox 91% on 2L. HEENT: Conjunctivae normal. Oral mucosa moist. NECK: No jugular venous distention. No lymph node enlargement. CARDIOVASCULAR: S1, S2. RESPIRATORY: Diminished breath sounds at the bases. A few scattered rhonchi, basilar crackles. ABDOMEN: Soft, nontender. LEGS: No swelling. NERVOUS SYSTEM: No focal deficits. LABS: WBC 14.3, hemoglobin is 10.3, glucose 127, 213. ASSESSMENT: 1. Acute sigmoid colon diverticulitis for CT scan of the abdomen pelvis. 2. Bilateral lower lobe pneumonia, atelectasis. 3. Chronic obstructive pulmonary disease, acute exacerbation. 4. Interstitial lung disease, pulmonary fibrosis. 5. Acute on chronic congestive heart failure with acute on chronic systolic and diastolic heart failure exacerbation, ejection fraction 30-35 percent. 6. Valvular heart disease with moderate to severe mitral regurgitation and moderate to severe tricuspid regurgitation and severe pulmonary hypertension. 7. Elevated troponin, likely demand mismatch. 8. History of secondary moderate pulmonary hypertension. 9. Chronic kidney disease, stage III. 10.Hypertension. 11.History of right nephrectomy. 12.History of thyroidectomy and thyroid cancer. 13.Ongoing nicotine dependence. RECOMMENDATIONS AND DISCUSSION: In this 72-year-old woman who presented with multiple complex medical issues, will monitor the patient closely, continue the current management, continue with diuretics, continue with IV steroids, reduce the dose of Solu-Medrol to 42 IV q.8h. Guarded prognosis because of multiple complex medical issues. Further recommendations. Will monitor blood sugars closely. Monitor fluid and electrolytes balance closely. Discussed with the patient. MMODL / IJN: [id number] /
--- NOTE | 2018-03-10 22:56 | PN ---
PROGRESS NOTE Mrs. Graff is breathing much better today. She has a combination of congestive heart failure with ejection fraction of less than 35 percent, and also pulmonary fibrosis, she is doing better. Breathing easier. Has been ambulating yesterday. Vital signs stable. S1-S2 heard normally. Short systolic murmur noted. Lungs revealed improved air entry. Abdomen and lower exam unchanged. Plan is to continue current medications. Increase activity and hopefully she can be discharged soon. MMODL / IJN: [id number] /
[2018-03-11] MEDS: methylPREDNISolone SOD SUCCI 40 MG/ML 1 ML VIAL IV SCH ×3 (00:07→15:32)
[2018-03-11 06:05] LABS: Glucose,Whole Blood 116 mg/dL (75-99)
[2018-03-11] MEDS: INSULIN ASPART 100 UNIT/ML 1 ML 10 ML VIAL SQ SCH ×4 (06:25→21:06)
[2018-03-11 07:16] LABS: Calcium 8.7 mg/dL (8.4-10.2); Potassium 4.6 mmol/L (3.5-5.1)
[2018-03-11 07:31] LABS: Basophils % (A) 0 %; Eosinophils % (A) 0 %; HCT 35.3 % (34.0-46.0); HGB 10.2 gm/dL (11.4-16.0); Hypochromasia Marked; Lymphocytes # (A) 0.4 k/uL (1.0-4.8); Lymphocytes % (A) 2 %; MCH 26.7 pg (25.0-35.0); MCHC 28.8 g/dL (31.0-37.0); MCV 92.5 fL (80.0-100.0); Mean Platelet Volume 7.3; Monocytes # (A) 0.6 k/uL (0-1.0); Monocytes % (A) 4 %; Neutrophils # (A) 14.5 k/uL (1.3-7.7); Neutrophils % (A) 93 %; Platelet Count 274 k/uL (150-450); RBC 3.81 m/uL (3.80-5.40); WBC 15.6 k/uL (3.8-10.6)
[2018-03-11] MEDS: LEVOFLOXACIN 750 MG TAB PO SCH (08:02)
[2018-03-11] MEDS: metroNIDAZOLE 500 MG TAB PO SCH ×4 (08:02→21:07)
[2018-03-11] MEDS: METOPROLOL TARTRATE 12.5 MG TAB PO SCH ×2 (08:02→21:07)
[2018-03-11] MEDS: NYSTATIN 100,000 UNIT/ML SUSP 500,000 UNIT/5 ML CUP PO SCH ×4 (08:02→21:13)
[2018-03-11] MEDS: FUROSEMIDE 40 MG TAB PO SCH (08:02)
[2018-03-11] MEDS: ASPIRIN 81 MG PO SCH (08:02)
[2018-03-11] MEDS: ATORVASTATIN 40 MG TAB PO SCH (08:02)
[2018-03-11] MEDS: FORMOTEROL FUMARATE 20 MCG/2 ML NEBU INHALATION SCH ×2 (08:30→19:57)
[2018-03-11] MEDS: IPRATROPIUM-ALBUTEROL 3 ML NEB INHALATION SCH ×4 (08:30→19:58)
[2018-03-11] MEDS: BUDESONIDE 1 MG/2 ML NEBU INHALATION SCH ×2 (08:31→19:57)
[2018-03-11] MEDS: INSULIN DETEMIR 100 UNIT/ML 10 ML VIAL SQ SCH (09:08)
[2018-03-11 11:55] LABS: Glucose,Whole Blood 151 mg/dL (75-99)
--- NOTE | 2018-03-11 12:18 | P.PN ---
Subjective Progress Note Date: 03/11/18 Principal diagnosis: Exacerbation of chronic obstructive pulmonary disease, ILD, pulmonary fibrosis , acute exacerbation of CHF This is a 78-year-old white female patient who presented to the emergency department on 03/05/2018 at 1600 for evaluation of worsening shortness of breath , severe weakness, cough with production of brownish colored phlegm, chills, diarrhea and thrush in her mouth. The shortness of breath has been increasingly worse for last few days, patient has been quite dyspneic even walking to the bathroom. Patient has been incontinent of watery diarrhea, patient denied any visible blood in it, no melena, no hematochezia. Patient reports a sore throat, she states she thinks she has thrush in her mouth. Patient had some chest discomfort across her anterior chest, without radiation, but associated with some mild nausea, no diaphoresis. She stated it lasted about 15 minutes, currently resolved. Patient has a medical history of COPD, not oxygen dependent at baseline, previous episodes of pneumonia, chronic congestive heart failure with systolic dysfunction and previously documented ejection fraction of 20-25%, valvular heart disease moderate to severe mitral regurgitation, moderate secondary pulmonary hypertension and moderate to severe tricuspid regurg. Patient has not been seen at this hospital in over a year, patient had not been to a doctor and has not refilled her prescription because she has been unable to follow with a doctor related to medical bills. Other history includes nephrectomy related to renal carcinoma, chronic kidney disease stage III, hypertension, thyroidectomy for history of thyroid cancer, chronic nicotine dependence with over 44 [id number] smoking history, bilateral idiopathic pulmonary fibrosis previously noted on chest x-rays and CT scans. Patient had a low-grade fever on admission, has been afebrile since. Asked x- ray showed cardiomegaly and advanced pulmonary fibrosis, possibility of mild heart failure. Abdomen and pelvis CT showed wall thickening of the sigmoid colon with multiple diverticula, system with diverticulitis. No drainable abscess was identified. There was evidence for mild rectal and vaginal prolapse. She has history bilateral lower lobe patchy infiltrates that could relate to pneumonia Or atelectasis. Labs showed WBC of 20.4, hemoglobin of 11.2 , INR was 1.1, sodium is 141, potassium is 4.5, chloride was 111, CO2 was 18, BUN is 20, and creatinine is 1.03, proBNP was 49,500; troponins were elevated at 0.056, 0.060, and 0.047. Patient was started on IV diuretics, empiric antibiotics with Levaquin and Flagyl, she is quite congested and wheezy and dyspneic with conversation. We're seeing this patient in consultation for acute exacerbation of COPD, underlying pneumonia is difficult to exclude on the background of interstitial lung disease changes present on the CT chest. On 03/07/2018 patient seen in follow-up on selective care unit. She is awake and alert, in no acute distress, she states her breathing is much easier, she is less wheezy and congested, diarrhea has resolved, she is tolerating clear liquid diet. Denies any abdominal pain, denies any fever or chills. Today's chest x-ray has been reviewed by Dr. Shaffer, and shows changes consistent with interstitial lung disease, and cardiomegaly. She remains on IV diuretics, empiric antibiotics, and we added IV steroids and nebulized bronchodilators yesterday. Today's lab work has been reviewed, cytosis is trending down, WBCs 15.5, hemoglobin is 12.5, electrolytes are within normal limits, BUN is 23, and creatinine is slightly on the rise at 1.08. Influenza Screen was negative. No fever no chills, blood culture showed no growth at the 24-hour michele. On 03/08/2018 patient seen in follow-up on selective care unit. Breathing easier, less congested, still gets quite dyspneic with exertion, to be doing better. Pulse ox on 2 L per nasal cannula is 94% no fever or chills. Lung sounds are positive for coarse rales bilateral lower lobes. High-resolution CT was completed and showed interstitial lung disease have significant progression from prior CT on 07/13/2016, moderate centrilobular emphysema with scattered blebs, cardiomegaly, moderate three-vessel coronary artery calcification, moderate size left pleural effusion and small right pleural effusion with compressive atelectasis. IV diuretic 7 transition to oral Lasix, patient continues on empiric antibiotics IV steroids. Overall she is improving, no further diarrhea. On 03/09/2018 patient seen in follow-up on selective care unit, he needs to improve, breathing easier, socks on 2 L per nasal cannula was 94%, afebrile, hemodynamically stable. Repeat chest x-ray showed some pulmonary vascular congestion, and underlying pulmonary fibrosis slight blunting of the costophrenic angles. His labs have been reviewed, WBC 15.4, hemoglobin is 10.5 , BMP was unremarkable. Clinically she is stable, lung sounds are positive for some crackles at bilateral bases, not bronchospastic on today's exam, she has an occasional cough, nonproductive. From pulmonary perspective she is stable for discharge home today she'll need follow-up appointment in the office On 03/11/2018 patient is seen again on selective care unit, she is doing quite well, less dyspneic, no wheezing no congestion, no chest pain. She is afebrile , vital signs are stable, she did qualify for home oxygen, room air pulse ox was 86%. She is going home on 2 L per nasal cannula, chest x-ray from 2017 was reviewed and showed slight improvement in the pulmonary edema compared to old exam. No acute events overnight. Patient is being discharged home today. Blood culture negative. Objective - Vital Signs Vital signs: Vital Signs Temp 97.3 F L 03/11/18 08:00 Pulse 76 03/11/18 12:00 Resp 18 03/11/18 08:00 BP 131/84 03/11/18 08:00 Pulse Ox 96 03/11/18 08:00 Intake & Output 03/10/18 03/11/18 03/11/18 18:59 06:59 18:59 Intake Total 250 240 Balance 250 240 Weight 45.2 kg Intake: IV 10 .9 10 Oral 240 240 Other: Voiding Method Toilet # Voids 1 # Bowel Movements 0 - Exam GENERAL EXAM: Alert, pleasant, 78-year-old white female, sitting up in bed, covered with blankets, no apparent distress HEAD: Normocephalic/atraumatic. EYES: Normal reaction of pupils, equal size. Conjunctiva pink, sclera white. NOSE: Clear with pink turbinates. THROAT: No erythema or exudates. NECK: No masses, no JVD, no thyroid enlargement, no adenopathy. CHEST: No chest wall deformity. Symmetrical expansion. LUNGS: Lung sounds are positive for mild bibasilar crackles CVS: Regular rate and rhythm, normal S1 and S2, no gallops, no murmurs, no rubs ABDOMEN: Soft, nontender. No hepatosplenomegaly, normal bowel sounds, no guarding or rigidity. EXTREMITIES: No clubbing, no edema, no cyanosis, 2+ pulses and upper and lower extremities. MUSCULOSKELETAL: Muscle strength and tone normal. SPINE: No scoliosis or deformity SKIN: No rashes CENTRAL NERVOUS SYSTEM: Alert and oriented -3. No focal deficits, tone is normal in all 4 extremities. PSYCHIATRIC: Alert and oriented -3. Appropriate affect. Intact judgment and insight. - Labs CBC & Chem 7: 03/11/18 06:16 03/11/18 06:16 Labs: Abnormal Lab Results - Last 24 Hours (Table) 03/10/18 03/11/18 03/11/18 Range/Units 20:06 06:03 06:16 WBC 15.6 H (3.8-10.6) k/uL Hgb 10.2 L (11.4-16.0) gm/dL MCHC 28.8 L (31.0-37.0) g/dL Neutrophils # 14.5 H (1.3-7.7) k/uL Lymphocytes # 0.4 L (1.0-4.8) k/uL Carbon Dioxide (22-30) mmol/L BUN (7-17) mg/dL Creatinine (0.52-1.04) mg/dL Glucose (74-99) mg/dL POC Glucose (mg/dL) 162 H 116 H (75-99) mg/dL 03/11/18 03/11/18 Range/Units 06:16 11:29 WBC (3.8-10.6) k/uL Hgb (11.4-16.0) gm/dL MCHC (31.0-37.0) g/dL Neutrophils # (1.3-7.7) k/uL Lymphocytes # (1.0-4.8) k/uL Carbon Dioxide 34 H (22-30) mmol/L BUN 43 H (7-17) mg/dL Creatinine 1.16 H (0.52-1.04) mg/dL Glucose 103 H (74-99) mg/dL POC Glucose (mg/dL) 151 H (75-99) mg/dL Microbiology - Last 24 Hours (Table) 03/05/18 18:20 Blood Culture - Preliminary Blood No Growth after 120 hours Assessment and Plan Plan: Assessment: #1. Acute exacerbation of chronic obstructive pulmonary disease secondary shortness of breath #2. Interstitial lung disease/idiopathic pulmonary fibrosis, not on oxygen currently or any treatment. The possibility of underlying bilateral lower lobe pneumonia on the CT of the abdomen and pelvis is difficult to rule out on the background of chronic interstitial changes, in view of presenting symptoms weakness, shortness of breath, cough and phlegm production #3. Diarrhea, CT abdomen and pelvis showed findings consistent with diverticulitis without abscess, resolved #4. Leukocytosis, low-grade fever possibly related to underlying pneumonia #5. Elevated troponins #6. Acute exacerbation of chronic congestive heart failure with systolic dysfunction. Patient had previously documented left ventricular ejection fraction of 20-25% #7. Secondary pulmonary hypertension #8. Moderate to severe mitral regurgitation and moderate to severe tricuspid regurgitation #9. Medical noncompliance related to financial difficulties #10. Chronic kidney disease, stage III #11. History of right nephrectomy #12. History of thyroidectomy for thyroid cancer #13. Chronic and ongoing tobacco dependence, carries a [id number] smoking history #14. Previous episodes of pneumonia Plan: Patient continues to improve, no acute events overnight, qualified for home oxygen will be going home on 2 L per nasal cannula for a room air pulse ox of 86 %, and, no chest congestion, vital signs are stable. She is being discharged home today. We'll need follow-up in the office with Dr. Shaffer in one week I performed a history & physical examination of the patient and discussed their management with my nurse practitioner, Joelle East. I reviewed the nurse practitioner's note and agree with the documented findings and plan of care. Lung sounds are positive for bibasilar crackles. The findings and the impression was discussed with the patient. I attest to the documentation by the nurse practitioner. Time with Patient: Less than 30
--- NOTE | 2018-03-11 14:20 | PN ---
PROGRESS NOTE Mrs. Graff is a lady with a combination of pulmonary fibrosis and systolic heart failure. She is doing better. Denies chest pain. Stable functional capacity. Has been ambulating without symptoms. Vital signs are stable. There is JVD of 1 cm. No carotid bruit. S1-S2 heard normally. Short systolic murmur noted. Lungs are clear. Abdomen and lower extremity exam is unchanged. There are still fine rales on both the lung bases. The rest of physical examination unchanged. Plan is to increase activity and possible discharge hopefully tomorrow and her steroids are being tapered gradually. MMODL / IJN: [id number] /
[2018-03-11] MEDS: FUROSEMIDE 20 MG TAB PO SCH (15:32)
[2018-03-11 17:09] LABS: Glucose,Whole Blood 96 mg/dL (75-99)
[2018-03-11] MEDS: predniSONE 20 MG TAB PO SCH (17:57)
--- NOTE | 2018-03-11 20:27 | PN ---
PROGRESS NOTE DATE OF SERVICE: 03/11/2018 This 78-year-old woman who was admitted after acute sigmoid diverticulitis, also had bilateral lower lobe pneumonia and possible CHF also. The patient being closely monitored at this time. The chest x-ray showed significant improvement. No chest pain. No palpitations. No fever. EXAM: Alert and oriented times three. Pulse 85, blood pressure 117/76, respiration 18, temperature 98 degrees, pulse ox 88 percent on room air. HEENT: Conjunctivae normal. NECK: No jugular venous distention. CARDIOVASCULAR: S1, S2 muffled. RESPIRATORY: Breath sounds diminished in the bases. A few scattered rhonchi and crackles. ABDOMEN is soft, nontender. No mass palpable. Legs no edema and no swelling. NERVOUS SYSTEM: Diffusely weak. LABS: WBC 15.2, hemoglobin 10.2, sodium 143, potassium 4.6, and glucose 151. ASSESSMENT: 1. Acute sigmoid colon diverticulitis on the CAT scan of the abdomen and pelvis. 2. Congestive heart failure acute exacerbation with acute on chronic systolic and diastolic dysfunction, ejection fraction 30-35 percent. 3. Bilateral lower lobe pneumonia, atelectasis, possibly gram-negative. 4. Chronic obstructive pulmonary disease acute exacerbation. 5. Interstitial lung disease and pulmonary fibrosis. 6. Valvular heart disease with moderate to severe mitral regurgitation, moderate to severe tricuspid regurgitation and severe pulmonary hypertension. 7. Elevated troponin, likely demand mismatch. 8. History of secondary moderate pulmonary hypertension. 9. History of chronic kidney disease stage 3. 10.Hypertension. 11.History of nephrectomy. 12.History of thyroidectomy, thyroid cancer. 13.Continued ongoing nicotine dependence. 14.Hypoxia with chronic hypoxic respiratory failure. 15.FULL CODE. RECOMMENDATIONS AND DISCUSSION: This 78-year-old woman who presented with multiple complex medical issues, we will monitor the patient closely. Continue the current medications, continue symptomatic treatment, continue the diuretics. Continue the bronchodilators. Continue with the rest of the medications. Chest x-ray personally reviewed. Otherwise see orders for details. Further recommendations to follow. Continue the bronchodilators. We will taper the steroids also. MMODL / VANESSAN: [id number] /
[2018-03-11 21:02] LABS: Glucose,Whole Blood 255 mg/dL (75-99)
[2018-03-11 21:02] LABS: Glucose,Whole Blood 230 mg/dL (75-99)
[2018-03-11] MEDS: LOSARTAN 25 MG TAB PO SCH (21:06)
[2018-03-11] MEDS: HEPARIN SODIUM,PORCINE 5,000 UNIT/ML 1 ML VIAL SQ SCH (21:06)
[2018-03-12 04:58] VITALS: RESP 19
[2018-03-12 06:13] LABS: Basophils % (A) 0 %; Eosinophils % (A) 0 %; HGB 11.2 gm/dL (11.4-16.0); Hypochromasia Marked; Lymphocytes # (A) 0.4 k/uL (1.0-4.8); Lymphocytes % (A) 3 %; MCHC 30.4 g/dL (31.0-37.0); Mean Platelet Volume 7.4; Monocytes # (A) 0.9 k/uL (0-1.0); Monocytes % (A) 7 %; Neutrophils # (A) 12.2 k/uL (1.3-7.7); Neutrophils % (A) 89 %; Platelet Count 286 k/uL (150-450); RBC 4.02 m/uL (3.80-5.40); RDW 14.9 % (11.5-15.5); WBC 13.7 k/uL (3.8-10.6)
[2018-03-12 06:16] LABS: Glucose,Whole Blood 145 mg/dL (75-99)
[2018-03-12] MEDS: INSULIN ASPART 100 UNIT/ML 1 ML 10 ML VIAL SQ SCH ×2 (06:21→12:08)
[2018-03-12 06:59] LABS: Calcium 8.8 mg/dL (8.4-10.2); Potassium 4.6 mmol/L (3.5-5.1)
[2018-03-12] MEDS: FORMOTEROL FUMARATE 20 MCG/2 ML NEBU INHALATION SCH (08:44)
[2018-03-12] MEDS: IPRATROPIUM-ALBUTEROL 3 ML NEB INHALATION SCH ×3 (08:44→16:03)
[2018-03-12] MEDS: BUDESONIDE 1 MG/2 ML NEBU INHALATION SCH (08:44)
[2018-03-12] MEDS: ASPIRIN 81 MG PO SCH (09:09)
[2018-03-12] MEDS: ATORVASTATIN 40 MG TAB PO SCH (09:09)
[2018-03-12] MEDS: FUROSEMIDE 40 MG TAB PO SCH (09:10)
[2018-03-12] MEDS: HEPARIN SODIUM,PORCINE 5,000 UNIT/ML 1 ML VIAL SQ SCH (09:10)
[2018-03-12] MEDS: metroNIDAZOLE 500 MG TAB PO SCH ×2 (09:10→12:15)
[2018-03-12] MEDS: predniSONE 20 MG TAB PO SCH (09:10)
[2018-03-12] MEDS: METOPROLOL TARTRATE 12.5 MG TAB PO SCH (09:10)
[2018-03-12] MEDS: NYSTATIN 100,000 UNIT/ML SUSP 500,000 UNIT/5 ML CUP PO SCH ×2 (09:10→12:15)
[2018-03-12] MEDS: INSULIN DETEMIR 100 UNIT/ML 10 ML VIAL SQ SCH (11:46)
[2018-03-12 11:52] LABS: Glucose,Whole Blood 127 mg/dL (75-99)
[2018-03-12 12:32] VITALS: BP 117/76; PULSE 85; TEMP 98.2
--- NOTE | 2018-03-12 13:23 | P.PN ---
Subjective Progress Note Date: 03/12/18 Principal diagnosis: Exacerbation of chronic obstructive pulmonary disease, ILD, pulmonary fibrosis , acute exacerbation of CHF This is a 78-year-old white female patient who presented to the emergency department on 03/05/2018 at 1600 for evaluation of worsening shortness of breath , severe weakness, cough with production of brownish colored phlegm, chills, diarrhea and thrush in her mouth. The shortness of breath has been increasingly worse for last few days, patient has been quite dyspneic even walking to the bathroom. Patient has been incontinent of watery diarrhea, patient denied any visible blood in it, no melena, no hematochezia. Patient reports a sore throat, she states she thinks she has thrush in her mouth. Patient had some chest discomfort across her anterior chest, without radiation, but associated with some mild nausea, no diaphoresis. She stated it lasted about 15 minutes, currently resolved. Patient has a medical history of COPD, not oxygen dependent at baseline, previous episodes of pneumonia, chronic congestive heart failure with systolic dysfunction and previously documented ejection fraction of 20-25%, valvular heart disease moderate to severe mitral regurgitation, moderate secondary pulmonary hypertension and moderate to severe tricuspid regurg. Patient has not been seen at this hospital in over a year, patient had not been to a doctor and has not refilled her prescription because she has been unable to follow with a doctor related to medical bills. Other history includes nephrectomy related to renal carcinoma, chronic kidney disease stage III, hypertension, thyroidectomy for history of thyroid cancer, chronic nicotine dependence with over 44 [id number] smoking history, bilateral idiopathic pulmonary fibrosis previously noted on chest x-rays and CT scans. Patient had a low-grade fever on admission, has been afebrile since. Asked x- ray showed cardiomegaly and advanced pulmonary fibrosis, possibility of mild heart failure. Abdomen and pelvis CT showed wall thickening of the sigmoid colon with multiple diverticula, system with diverticulitis. No drainable abscess was identified. There was evidence for mild rectal and vaginal prolapse. She has history bilateral lower lobe patchy infiltrates that could relate to pneumonia Or atelectasis. Labs showed WBC of 20.4, hemoglobin of 11.2 , INR was 1.1, sodium is 141, potassium is 4.5, chloride was 111, CO2 was 18, BUN is 20, and creatinine is 1.03, proBNP was 49,500; troponins were elevated at 0.056, 0.060, and 0.047. Patient was started on IV diuretics, empiric antibiotics with Levaquin and Flagyl, she is quite congested and wheezy and dyspneic with conversation. We're seeing this patient in consultation for acute exacerbation of COPD, underlying pneumonia is difficult to exclude on the background of interstitial lung disease changes present on the CT chest. On 03/07/2018 patient seen in follow-up on selective care unit. She is awake and alert, in no acute distress, she states her breathing is much easier, she is less wheezy and congested, diarrhea has resolved, she is tolerating clear liquid diet. Denies any abdominal pain, denies any fever or chills. Today's chest x-ray has been reviewed by Dr. Shaffer, and shows changes consistent with interstitial lung disease, and cardiomegaly. She remains on IV diuretics, empiric antibiotics, and we added IV steroids and nebulized bronchodilators yesterday. Today's lab work has been reviewed, cytosis is trending down, WBCs 15.5, hemoglobin is 12.5, electrolytes are within normal limits, BUN is 23, and creatinine is slightly on the rise at 1.08. Influenza Screen was negative. No fever no chills, blood culture showed no growth at the 24-hour michele. On 03/08/2018 patient seen in follow-up on selective care unit. Breathing easier, less congested, still gets quite dyspneic with exertion, to be doing better. Pulse ox on 2 L per nasal cannula is 94% no fever or chills. Lung sounds are positive for coarse rales bilateral lower lobes. High-resolution CT was completed and showed interstitial lung disease have significant progression from prior CT on 07/13/2016, moderate centrilobular emphysema with scattered blebs, cardiomegaly, moderate three-vessel coronary artery calcification, moderate size left pleural effusion and small right pleural effusion with compressive atelectasis. IV diuretic 7 transition to oral Lasix, patient continues on empiric antibiotics IV steroids. Overall she is improving, no further diarrhea. On 03/09/2018 patient seen in follow-up on selective care unit, he needs to improve, breathing easier, socks on 2 L per nasal cannula was 94%, afebrile, hemodynamically stable. Repeat chest x-ray showed some pulmonary vascular congestion, and underlying pulmonary fibrosis slight blunting of the costophrenic angles. His labs have been reviewed, WBC 15.4, hemoglobin is 10.5 , BMP was unremarkable. Clinically she is stable, lung sounds are positive for some crackles at bilateral bases, not bronchospastic on today's exam, she has an occasional cough, nonproductive. From pulmonary perspective she is stable for discharge home today she'll need follow-up appointment in the office On 03/11/2018 patient is seen again on selective care unit, she is doing quite well, less dyspneic, no wheezing no congestion, no chest pain. She is afebrile , vital signs are stable, she did qualify for home oxygen, room air pulse ox was 86%. She is going home on 2 L per nasal cannula, chest x-ray from 2017 was reviewed and showed slight improvement in the pulmonary edema compared to old exam. No acute events overnight. Patient is being discharged home today. Blood culture negative. On 03/12/2018 patient seen in follow-up on selective care unit, she is awake and alert, saturations on 2 L per nasal cannula is 91 to 93%, she is afebrile, hemodynamically stable, respirations are even and nonlabored, lung sounds are positive for some coarse lower lobe crackles, no rhonchi or wheezing. No cough or phlegm production, no fever or chills. Today's labs have been reviewed, showed WBC of 13.7, hemoglobin of 11.2, sodium is 143, potassium is 4.6, chloride is 99, CO2 37, BUN is 51, creatinine is 1.14. Patient is been transitioned to oral Lasix. Is complaining course of oral antibiotics, and she has been transitioned to oral prednisone. Her pulmonary perspective patient remains stable, and has been cleared for discharge today. Objective - Vital Signs Vital signs: Vital Signs Temp 98.2 F 03/12/18 12:29 Pulse 85 03/12/18 12:29 Resp 19 03/12/18 12:29 BP 117/76 03/12/18 12:29 Pulse Ox 93 L 03/12/18 12:29 Intake & Output 03/11/18 03/12/18 03/12/18 18:59 06:59 18:59 Intake Total 730 480 360 Balance 730 480 360 Weight 44 kg Intake: IV 10 .9 10 Oral 720 480 360 Other: Voiding Method Toilet Toilet # Voids 3 2 # Bowel Movements 0 - Exam GENERAL EXAM: Alert, pleasant, 78-year-old white female, sitting up in bed, no apparent distress HEAD: Normocephalic/atraumatic. EYES: Normal reaction of pupils, equal size. Conjunctiva pink, sclera white. NOSE: Clear with pink turbinates. THROAT: No erythema or exudates. NECK: No masses, no JVD, no thyroid enlargement, no adenopathy. CHEST: No chest wall deformity. Symmetrical expansion. LUNGS: Lung sounds are positive for mild bibasilar crackles CVS: Regular rate and rhythm, normal S1 and S2, no gallops, no murmurs, no rubs ABDOMEN: Soft, nontender. No hepatosplenomegaly, normal bowel sounds, no guarding or rigidity. EXTREMITIES: No clubbing, no edema, no cyanosis, 2+ pulses and upper and lower extremities. MUSCULOSKELETAL: Muscle strength and tone normal. SPINE: No scoliosis or deformity SKIN: No rashes CENTRAL NERVOUS SYSTEM: Alert and oriented -3. No focal deficits, tone is normal in all 4 extremities. PSYCHIATRIC: Alert and oriented -3. Appropriate affect. Intact judgment and insight. - Labs CBC & Chem 7: 03/12/18 05:48 03/12/18 05:48 Labs: Abnormal Lab Results - Last 24 Hours (Table) 03/11/18 03/11/18 03/12/18 Range/Units 20:59 21:00 05:48 WBC 13.7 H (3.8-10.6) k/uL Hgb 11.2 L (11.4-16.0) gm/dL MCHC 30.4 L (31.0-37.0) g/dL Neutrophils # 12.2 H (1.3-7.7) k/uL Lymphocytes # 0.4 L (1.0-4.8) k/uL Carbon Dioxide (22-30) mmol/L BUN (7-17) mg/dL Creatinine (0.52-1.04) mg/dL Glucose (74-99) mg/dL POC Glucose (mg/dL) 230 H 255 H (75-99) mg/dL 03/12/18 03/12/18 03/12/18 Range/Units 05:48 06:14 11:50 WBC (3.8-10.6) k/uL Hgb (11.4-16.0) gm/dL MCHC (31.0-37.0) g/dL Neutrophils # (1.3-7.7) k/uL Lymphocytes # (1.0-4.8) k/uL Carbon Dioxide 37 H (22-30) mmol/L BUN 51 H (7-17) mg/dL Creatinine 1.14 H (0.52-1.04) mg/dL Glucose 143 H (74-99) mg/dL POC Glucose (mg/dL) 145 H 127 H (75-99) mg/dL Microbiology - Last 24 Hours (Table) 03/05/18 18:20 Blood Culture - Final Blood No Growth after 144 hours Assessment and Plan Plan: Assessment: #1. Acute exacerbation of chronic obstructive pulmonary disease secondary shortness of breath #2. Interstitial lung disease/idiopathic pulmonary fibrosis, not on oxygen currently or any treatment. The possibility of underlying bilateral lower lobe pneumonia on the CT of the abdomen and pelvis is difficult to rule out on the background of chronic interstitial changes, in view of presenting symptoms weakness, shortness of breath, cough and phlegm production #3. Diarrhea, CT abdomen and pelvis showed findings consistent with diverticulitis without abscess, resolved #4. Leukocytosis, low-grade fever possibly related to underlying pneumonia #5. Elevated troponins #6. Acute exacerbation of chronic congestive heart failure with systolic dysfunction. Patient had previously documented left ventricular ejection fraction of 20-25% #7. Secondary pulmonary hypertension #8. Moderate to severe mitral regurgitation and moderate to severe tricuspid regurgitation #9. Medical noncompliance related to financial difficulties #10. Chronic kidney disease, stage III #11. History of right nephrectomy #12. History of thyroidectomy for thyroid cancer #13. Chronic and ongoing tobacco dependence, carries a [id number] smoking history #14. Previous episodes of pneumonia Plan: Patient remains stable, no acute events overnight, no fever or chills, no worsening dyspnea, no chest congestion, no wheezing. A pulmonary perspective patient is stable, is ready for discharge home. Follow up with Dr. Shaffer in the office in one week I performed a history & physical examination of the patient and discussed their management with my nurse practitioner, Joelle East. I reviewed the nurse practitioner's note and agree with the documented findings and plan of care. Lung sounds are positive for bibasilar crackles. The findings and the impression was discussed with the patient. I attest to the documentation by the nurse practitioner. Time with Patient: Less than 30
[2018-03-12 14:35] VITALS: BMI 18.9
--- NOTE | 2018-03-12 20:40 | PN ---
PROGRESS NOTE HISTORY: This lady has a combination of congestive heart failure with ischemic LV dysfunction with ejection fraction of less than 30%, and also pulmonary fibrosis. She is stable doing better. Breathing well. Ambulating without symptoms. PHYSICAL EXAM: Vital signs stable. S1 and S2 heard normally. Short systolic murmur noted. Lungs reveal fine rales bilaterally. Abdomen and lower exam unchanged. PLAN: Increase activity and discharge today. She will follow up with Dr. Flavia Fuller in 2 weeks. MMODL / IJN: [id number] /
--- NOTE | 2018-03-13 05:13 | DS ---
DISCHARGE SUMMARY DATE OF SERVICE: 03/12/2018 FINAL DIAGNOSES: 1. Acute sigmoid colon diverticulitis on the CT scan of the abdomen and pelvis. 2. Congestive heart failure acute exacerbation with acute on chronic systolic and diastolic dysfunction, ejection fraction 30% to 35%. 3. Bilateral lower lobe pneumonia, atelectasis, possibly gram-negative. 4. Chronic obstructive pulmonary disease acute exacerbation. 5. Interstitial lung disease and pulmonary fibrosis. 6. Valvular heart disease with moderate to severe mitral regurgitation moderate to severe tricuspid regurgitation, history of pulmonary hypertension. 7. Elevated troponin, demand mismatch. 8. History of secondary moderate pulmonary hypertension. 9. History of chronic kidney disease stage 3. 10.Hypertension. 11.History of nephrectomy. 12.History of thyroidectomy and thyroid cancer. 13.Continued ongoing nicotine dependence. 14.Hypoxia with chronic hypoxic respiratory failure. 15.FULL CODE. DISCHARGE DISPOSITION: The patient will be discharged in stable condition with guarded prognosis. Total time 35 minutes. HISTORY OF PRESENT ILLNESS: This 78-year-old woman with a past medical history of multiple medical problems admitted with multiple medical problems as mentioned. Patient treated conservatively. Patient was given IV diuretics, bronchodilators, steroids. Patient improved significantly. On exam, vitals are stable. CARDIOVASCULAR: S1 and S2 muffled. ABDOMEN: Soft. NERVOUS SYSTEM: No focal deficit. The patient was seen by multiple consultants including Cardiology and Pulmonology. Chest x-ray showed significant improvement. Patient will be discharged in stable condition with guarded prognosis. DISCHARGE ADVICE: 1. Diet is cardiac. 2. Activity limited until followup. 3. Follow up with Dr. Mely Prabhakar in 2 to 3 days. 4. Follow up with Dr. De Anda, Dr. Fuller and Dr. Gillis as recommended. Medications are: 1. Aspirin 81 mg p.o. daily. 2. OTC. 3. Tylenol 650 q.6 p.r.n. 4. Lipitor 40 mg p.o. daily. 5. Symbicort 160/4.5 two puffs b.i.d. 6. Lasix 20 mg p.o. daily in the afternoon and 40 mg in in the morning. 7. DuoNeb q.i.d. and p.r.n. 8. Levaquin 500 mg p.o. daily for 1 week. 9. Cozaar 25 mg q.h.s. 10.Lopressor 12.5 mg p.o. b.i.d. 11.Flagyl 500 mg p.o. q.i.d. for 1 week. 12.Nystatin q.6 p.r.n. 13.Prednisone taper, that will be 40 mg daily for 4 days, 30 for 4 days, 20 for 4 days and 10 for 4 days and then stop. 14.Requip 0.5 mg q.h.s. Follow up with Dr. Gillis as advised. MMODL / IJN: [id number] /
== END 2018-03-12 16:23 | disposition home or self-care (01) | DRG 291 ==
LOC: EC 16:05 → 3SCARD 20:59
PROVIDERS: ADMIT Internal Medicine; ATTEND Internal Medicine
DX: I13.0 Hypertensive heart and chronic kidney disease with heart failure and stage 1 through stage 4 chronic kidney disease, or unspecified chronic kidney disease (principal); I50.43 Acute on chronic combined systolic (congestive) and diastolic (congestive) heart failure; J15.6 Pneumonia due to other Gram-negative bacteria; J96.21 Acute and chronic respiratory failure with hypoxia; K57.32 Diverticulitis of large intestine without perforation or abscess without bleeding; J44.0 Chronic obstructive pulmonary disease with (acute) lower respiratory infection; J44.1 Chronic obstructive pulmonary disease with (acute) exacerbation; J98.11 Atelectasis; I24.8 Other forms of acute ischemic heart disease; E11.22 Type 2 diabetes mellitus with diabetic chronic kidney disease; E78.5 Hyperlipidemia, unspecified; E89.0 Postprocedural hypothyroidism; F17.200 Nicotine dependence, unspecified, uncomplicated; Z71.6 Tobacco abuse counseling; I08.1 Rheumatic disorders of both mitral and tricuspid valves; I25.10 Atherosclerotic heart disease of native coronary artery without angina pectoris; I25.5 Ischemic cardiomyopathy; I27.29 Other secondary pulmonary hypertension; I71.4 Abdominal aortic aneurysm, without rupture; J84.112 Idiopathic pulmonary fibrosis; N18.3 Chronic kidney disease, stage 3 (moderate); N81.10 Cystocele, unspecified; Z79.82 Long term (current) use of aspirin; Z79.899 Other long term (current) drug therapy; Z82.49 Family history of ischemic heart disease and other diseases of the circulatory system; Z82.5 Family history of asthma and other chronic lower respiratory diseases; Z85.528 Personal history of other malignant neoplasm of kidney; Z85.850 Personal history of malignant neoplasm of thyroid; Z87.01 Personal history of pneumonia (recurrent); Z90.5 Acquired absence of kidney; Z91.19 Patient's noncompliance with other medical treatment and regimen; Z88.5 Allergy status to narcotic agent; Z88.8 Allergy status to other drugs, medicaments and biological substances; Z90.49 Acquired absence of other specified parts of digestive tract
CPT/HCPCS: 36415; 71045; 71046; 71250; 74177; 80048; 80053; 81001; 82550; 82553; 83605; 83735; 83880; 84484; 85025; 85610; 85730; 87040; 87502; 93005; 93306; 94640; 94760; 96365; 96366; 96367; 96375; 99285